=== PATIENT | male | born 1965 | race Caucasian/White ===

== ENCOUNTER → 2021-02-18 12:38 | Outpatient (CLI) | payer OTHER, SELFPAY ==
--- NOTE | 2021-02-18 12:47 | CT_ITS ---
PROCEDURE: CT LUNG SCREENING CLINICAL INDICATION: H/O NICOTINE DEPENDENCE COMPARISON: No exams were available for comparison TECHNIQUE: The exam was performed on a GE Light Speed [address] scanner using 2.90 mGy CTDI. A low dose helical CT CHEST was performed on a multi-detector scanner. All CT scans at the facility use one or more dose reduction, viz: automated exposure control, ma/kV adjustment per patient size (including targeted exams where dose is matched to indication, i.e. head), or iterative reconstruction technique. The LDCT was performed in a facility that meets the criteria for the screening program. Data regarding this exam was submitted to ACR which is an approved registry. The order for this exam indicates that it came as a result of a lung cancer screening counseling shard decision-making visit that included all the elements required of such a visit including smoking cessation. The radiologist interpreting this exam meets the CMS criteria for the LDCT lung cancer screening program. The exam is reported using the Lung-RADS classification scale and reported to the ACR registry. NOTE: This study was performed for the specific purposes of lung cancer screening and is not an alternative to diagnostic chest CT. RADIATION DOSE: CTDI vol(CT dose Index-volume) = 2.90mG DLP (Dose Length Product) = 114.90 mGcm FINDINGS: There is mild bibasilar scar versus atelectasis. Scattered mild emphysematous changes. No pulmonary consolidation or ground-glass opacities in the lungs. No discrete pulmonary nodules. No pleural effusion or pneumothorax. Heart is not enlarged. Thoracic aorta is normal. A few small non-specific middle mediastinal lymph nodes not pathologically enlarged. No enlarged axillary nodes. Hilar regions grossly appear normal. Some calcified middle mediastinal lymph nodes are present. Single small calcified granuloma in the right middle lobe. Images of the upper abdomen show no focal abnormality. No adrenal mass moderate diffuse degenerative changes of the thoracic spine with mild anterior wedging of a few midthoracic vertebral bodies which appears chronic. Airways are patent. OTHER FINDINGS: No other pertinent findings evident. IMPRESSION: Lung-RADS Category 2 Benign Appearance or Behavior Follow-up: Serial follow-up in 1 year. Scattered mild emphysematous changes with mild bibasilar scar versus atelectasis. Dictated by: Malachi Sullivan MD 03/07/2021 12:35 Malachi Sullivan MD in [place] 03/07/2021 12:35
== END ==
PROVIDERS: PCP Family Medicine; Visit Provider Family Medicine
DX: Z87.891 Personal history of nicotine dependence (principal); Z12.2 Encounter for screening for malignant neoplasm of respiratory organs
CPT/HCPCS: 71271

== ENCOUNTER → 2021-04-04 15:11 | Outpatient (CLI) | payer OTHER, SELFPAY | PROVIDERS: Visit Provider Internal Medicine Gastroenterology | DX: Z20.822 Contact with and (suspected) exposure to COVID-19 (principal) | CPT/HCPCS: U0003 ==

== ENCOUNTER 2021-04-07 10:57 | Day surgery (SDC) | payer OTHER, SELFPAY ==
[2021-04-01 11:01] VITALS: BMI 27.1
[2021-04-07 11:14] VITALS: BP 135/90; PULSE 83; RESP 18; TEMP 36.8; O2SAT 96
--- NOTE | 2021-04-07 11:44 | P.PN_ITS ---
[facility] Anesthesia Checklist - Patient Identification Patient Identification: Arm Band - Structural Data Admitted From: Home Planned Operative Procedure/s: Colonoscopy Consent for Planned Operative Procedure(s) Verified: Yes - NPO Status Verified Time NPO: 00:00 - Airway Assessment C-Spine Mobility Assessed: Yes TMJ Mobility Assessed: Yes - Neurological Assessment Level of Consciousness: Awake Hx Seizures: No Numbness or tingling in extremities: No - Anesthesia Plan Anesthesia Risk discussed: Yes Anesthesia Plan: Verified ASA Class: II Anesthesia Type: MAC [facility] History I have reviewed the patient's past medical history: Yes Medical History: Denies:: Cancer, Diabetes Mellitus Type 1, Diabetes Mellitus Type 2, Internal Pacemaker, MRSA, Seizures *Have you ever received a pneumonia vaccine?: No *Have you received a flu vaccine this season?: Yes Anesthesia experience/problems:: None Other Surgeries: No: Pacemaker Amputation: No Fractures: No - *Social History Last grade of school completed: High school graduate Smoking Status: Current every day smoker Tobacco Type: cigarettes # Packs/Day (cigarettes): 1 Alcohol Intake: current Alcohol Intake Frequency:: holidays/special occasions only Substance Use Type: denies use *Occupational Status:: employed Housing: house Household Members: spouse *Travel in the last 8 weeks: None Family Hx:: Hypertension, Stroke
--- NOTE | 2021-04-07 12:36 | P.PCN_ITS ---
[facility] Procedure Note Procedure Note:: Colonoscopy Procedure Report: Colonoscopy with cold snare polypectomy Endoscopist: Mian Santana II, MD Referring physician: Thai Peres MD Date of Procedure: April 07, 2021 Equipment: Olympus 190 variable stiffness pediatric colonoscope Sedation: MAC sedation Indication: Mr. Schultz is a 56-year-old gentleman who is here for initial screening colonoscopy. He reports no abdominal pain, weight loss, change in his bowel habits or family history of colon cancer. He rarely has a spot of blood on the tissue from internal hemorrhoids. Procedure: Prior to the procedure, a history and physical exam was performed, and patient's medications and allergies were reviewed. The risks, benefits and alternatives of the sedation and procedure were discussed with the patient. All questions were answered and informed consent was obtained. The patient was brought to the procedure room. Patient identification and proposed procedure were verified by the physician and the nurse. The patient was placed in a left lateral decubitus position and the scope was passed under direct vision. Throughout the procedure, the patient's blood pressure, pulse, and oxygen saturations were monitored continuously. The colonoscopy was accomplished without difficulty. The patient tolerated the procedure well. Findings: On digital rectal examination there was normal rectal tone. There were no external hemorrhoids. The prostate was 2+, mildly firm but symmetric without nodules. The colonoscope was introduced through the anal canal to the rectum and advanced to the cecum. The ileocecal valve and appendiceal orifice were identified. The scope was advanced a short distance into the ileum which appeared grossly normal. The scope was then withdrawn into the colon. The cecum, ascending and transverse colon and mucosa were grossly normal. There were a total of 4 polyps (transverse x2 (2 and 4 mm) and rectosigmoid x2 (3 and 6 mm)) which were all removed via cold snare polypectomy. There were scattered diverticuli throughout the descending and sigmoid colon (LEFT colon). The rectum itself was normal. Upon retroflexion within the rectum there were grade 2 internal hemorrhoids. The preparation was excellent throughout with [place] Preparation Score of 9. The cecal time was 12 minutes. Impression: 1. Diminutive colonic polyps x4 2. Left-sided diverticulosis 3. Grade 2 internal hemorrhoids Plan: I will follow up the polyp pathology and recommend repeat colonoscopy again in 5-10 years based upon the polyp histology. I would encourage fiber supplementation on a long-term daily maintenance basis.
[2021-04-07 12:38] VITALS: BP 88/62; PULSE 95; RESP 16; TEMP 36.4; O2SAT 93
[2021-04-07 12:48] VITALS: BP 83/58; PULSE 79; RESP 18; TEMP 36.4; O2SAT 95
[2021-04-07 12:58] VITALS: BP 103/70; PULSE 74; RESP 18; TEMP 36.4; O2SAT 95
[2021-04-07 13:08] VITALS: BP 109/75; PULSE 70; RESP 18; TEMP 36.4; O2SAT 97
[2021-04-07 13:35] VITALS: BP 118/81; PULSE 72; RESP 18; TEMP 36.4; O2SAT 97
== END 2021-04-07 13:35 | disposition home or self-care (01) ==
LOC: OUTP 10:58
PROVIDERS: PCP Family Medicine; Visit Provider Internal Medicine Gastroenterology
PROC: 0DJD8ZZ Inspection of Lower Intestinal Tract, Via Natural or Artificial Opening Endoscopic (ICD-10-PCS; CPT 45378; principal; 2021-04-07 12:00)
DX: Z12.11 Encounter for screening for malignant neoplasm of colon (principal); K63.5 Polyp of colon; K64.1 Second degree hemorrhoids; K57.30 Diverticulosis of large intestine without perforation or abscess without bleeding; Z72.0 Tobacco use; Z82.3 Family history of stroke; Z82.49 Family history of ischemic heart disease and other diseases of the circulatory system
CPT/HCPCS: 45385

== ENCOUNTER → 2022-01-27 13:22 | Outpatient (CLI) | payer OTHER, SELFPAY ==
--- NOTE | 2022-01-27 13:27 | XR_ITS ---
FINAL REPORT CLINICAL HISTORY: rt thumb pain FINDINGS: RIGHT HAND Three views were obtained. There is no acute fracture or dislocation. There are mild degenerative changes. No soft tissue abnormality is identified. IMPRESSION: No acute process. Reviewed, Interpreted and Dictated by Lex Boyd III, MD Transcribed by Tressa Mcwilliams Authenticated by Lex Boyd III, MD on 01/27/2022 04:26:[address] [facility]
== END ==
PROVIDERS: PCP Family Medicine; Visit Provider Orthopaedic Surgery
DX: M18.11 Unilateral primary osteoarthritis of first carpometacarpal joint, right hand (principal)
CPT/HCPCS: 73130

== ENCOUNTER → 2022-02-04 12:26 | Outpatient (CLI) | payer OTHER, SELFPAY ==
--- NOTE | 2022-02-04 16:49 | P.PCN_ITS ---
[facility] Procedure Note Procedure Note:: Date of Procedure: 02/04/2022 Pre-procedure diagnosis: 1. First CMC joint arthritis, right thumb 2. Degenerative arthritis, third MCP joint, right hand Post-procedure diagnosis: Same Procedure: 1. Fluoroscopy-guided intraarticular corticosteroid injection first CMC joint, right thumb 2.Fluoroscopy-guided intraarticular corticosteroid injection third MCP joint, right thumb Performed by: Eddie Merrill MD Fruit Loader Machine Operator/s: none Anesthesia: None Estimated Blood Loss: none Procedure Note: The patient presented to the radiology department and was prepared for the right first CMC joint and right third MCP joint injections under fluoroscopic guidance. The consent form was reviewed and signed by both myself and the patient; all questions were answered. The patient's right hand was placed on the fluoroscopy table. The right hand was prepped in the usual sterile fashion with multiple chlorhexidine sticks. Timeout was performed as per protocol. Next, the fluoro machine was brought in over the patient?s right hand and adequate visualization of the joints was confirmed. I donned a pair of sterile surgical g loves; the remainder of the procedure was performed in a sterile fashion. After localizing the first CMC joint under fluoroscopic guidance, a 25G needle was used to inject the joint. Using fluoro, it was confirmed that the needle is advanced into the first CMC joint. A combination of 20 mg of Kenalog and 1 mL of 1% lidocaine was then injected into the first carpometacarpal joint, under aseptic precautions. After completion of the procedure, the needle was withdrawn and a sterile Band-Aid was applied over the puncture site. The procedure was then repeated with for the right third MCP joint. After localizing the third MCP joint under fluoroscopic guidance, a 25G needle was used to inject the joint. Using fluoro, it was confirmed that the needle is advanced into the third MCP joint. A combination of 20 mg of Kenalog and 1 mL of 1% lidocaine was then injected into the third metacarpophalangeal joint, under aseptic precautions. After completion of the procedure, the needle was withdrawn and a sterile Band-Aid was applied over the puncture site. Patient tolerated both procedures well and there were no immediate complications. Patient reported very good pain relief within a few minutes after the injection. Specimens: none Condition/Disposition: good / home Complications: none
== END ==
PROVIDERS: PCP Family Medicine; Visit Provider Orthopaedic Surgery
DX: M18.11 Unilateral primary osteoarthritis of first carpometacarpal joint, right hand (principal); M19.041 Primary osteoarthritis, right hand
CPT/HCPCS: 20600; 77002

== ENCOUNTER → 2022-02-13 14:55 | Outpatient (CLI) | payer OTHER, SELFPAY ==
--- NOTE | 2022-02-13 14:59 | CT_ITS ---
FINAL REPORT CLINICAL HISTORY: PERSONAL HISTORY OF NICOTINE; SCREENING FOR LUNG CANCER, CURRENT SMOKER AND HAS SMOKED FOR 40 YEARS, 1 PACL PER DAY COMPARISON: February 18, 2021 FINDINGS: Low-Dose Chest CT CTDI vol (mGy): 2.90 DLP (mGy-cm): 96.38 Axial images were obtained from the lung apex to the mid abdomen by computed tomography. Low-dose protocol was utilized. CHEST: There is no axillary lymphadenopathy. There is no hilar or mediastinal lymphadenopathy. The heart is proper size. There is no pericardial or pleural effusion. Limited images of the upper abdomen demonstrates a partially imaged exophytic right renal lesion measuring 1.8 cm. This is not a simple cyst. Lung window images demonstrate a small stable nodule along the right minor fissure which is likely an intra fissural lymph node. There is evidence of prior granulomatous disease. The lungs are otherwise clear. IMPRESSION: Small stable nodule along the right minor fissure. Modifier S: Right renal lesion. Recommend ultrasound as initial evaluation. Lung RADS category 2. Recommend 12 month follow-up low-dose chest CT. Reviewed, Interpreted and Dictated by Judith Yen MD Transcribed by Betty Arana Authenticated by Judith Yen MD on 02/13/2022 05:01:33 PM [facility]
== END ==
PROVIDERS: PCP Family Medicine; Visit Provider Family Medicine
DX: Z87.891 Personal history of nicotine dependence (principal); Z12.2 Encounter for screening for malignant neoplasm of respiratory organs
CPT/HCPCS: 71271

== ENCOUNTER → 2022-02-23 13:56 | Outpatient (CLI) | payer OTHER, SELFPAY ==
--- NOTE | 2022-02-23 13:58 | US_ITS ---
FINAL REPORT TECHNIQUE: Ultrasound images of the kidneys were obtained. CLINICAL HISTORY: NEOPLASM OF UNCERTAIN BEHAVIOR OF RIGHT KIDNEY FINDINGS: US RETROPERITONEAL The right kidney measures 12.5 cm in length. There is no hydronephrosis. There is a 2 cm mass the upper pole which is not a simple cyst. Complex cyst versus neoplasm. The left kidney measures 11.5 cm in length. It is normal in echogenicity. There is no hydronephrosis. Limited images of the liver are unremarkable. IMPRESSION: 2 cm right renal cyst, complex cyst versus neoplasm. Could be further evaluated with renal mass protocol CT or renal MRI without and with contrast. Reviewed, Interpreted and Dictated by Lex Boyd III, MD Transcribed by Betty Arana Authenticated and [facility]
== END ==
PROVIDERS: PCP Family Medicine; Visit Provider Family Medicine
DX: D41.01 Neoplasm of uncertain behavior of right kidney (principal)
CPT/HCPCS: 76770

== ENCOUNTER → 2022-03-05 08:56 | Outpatient (CLI) | payer OTHER, SELFPAY ==
--- NOTE | 2022-03-05 09:01 | CT_ITS ---
FINAL REPORT CLINICAL HISTORY: NEOPLASM OF UNCERTAIN BEHAVIOR OF RT KIDNEY FINDINGS: CT ABDOMEN with and without: PROCEDURE: Axial images were obtained from the lung base to the iliac crest by computed tomography before and after the administration of contrast. This study was performed with techniques to keep radiation doses as low as reasonably achievable (ALARA). Individualized dose reduction techniques using automated exposure control or adjustment of mA and/or kV according to the patient's size were employed. ABDOMEN: The lung bases are clear. The heart is normal in size. There are multiple less than 1 cm hepatic cysts. The spleen is normal. No adrenal masses present. The pancreas is normal. There is a less than 3 mm nonobstructing left renal stone. There is a contrast enhancing 22 mm posterior upper pole right renal mass that demonstrates 29 Hounsfield units precontrast and 62 Hounsfield units postcontrast. This is most worrisome for renal neoplasm. The renal veins are unremarkable. There is a small simple cyst in the left kidney. The aorta is normal in caliber. There is no free fluid or adenopathy. There is a small umbilical hernia containing fat. IMPRESSION: Contrast enhancing right renal mass most worrisome for renal neoplasm. This may represent renal cell carcinoma. Reviewed, Interpreted and Dictated by Lex Boyd III, MD Transcribed by Cullen Stockton Authenticated and [facility]
[2022-03-05 09:54] LABS: Blood Urea Nitrogen 12 mg/dl (9-20); Estimated Glomerular Filt Rate 69 ml/min (>60); GFR (African American) 84 ML/MIN (>60)
== END ==
PROVIDERS: PCP Family Medicine; Visit Provider Family Medicine
DX: D41.01 Neoplasm of uncertain behavior of right kidney (principal)
CPT/HCPCS: 36415; 74170; 82565; 84520; Q9967

== ENCOUNTER → 2022-04-20 14:49 | Outpatient (CLI) | payer OTHER, SELFPAY ==
[2022-04-20 16:25] LABS: Chloride 102 mmol/L (98-107); Potassium 4.5 mmoL/L (3.5-5.1); Sodium 137 mmol/L (136-145)
[2022-04-20 16:28] LABS: Anion Gap 10.5 mEq/L (5-15); Blood Urea Nitrogen 15 mg/dl (9-20); Calcium 8.8 mg/dl (8.4-10.2); Carbon Dioxide 29 mmol/L (22.0-30.0); Estimated Glomerular Filt Rate 69 ml/min (>60); GFR (African American) 84 ML/MIN (>60); Glucose 117 mg/dl (74-100)
== END ==
PROVIDERS: Urology; PCP Family Medicine
DX: R31.0 Gross hematuria (principal)
CPT/HCPCS: 36415; 80048

== ENCOUNTER → 2022-05-19 14:02 | Outpatient (CLI) | payer OTHER, SELFPAY | PROVIDERS: PCP Family Medicine; Visit Provider Family Medicine | DX: R06.81 Apnea, not elsewhere classified (principal); R06.83 Snoring | CPT/HCPCS: 95806 ==

== ENCOUNTER 2022-06-10 10:16 | Emergency (ER) | payer OTHER, SELFPAY ==
[2022-06-10 11:10] VITALS: BP 116/78; PULSE 78; RESP 18; TEMP 37.1; O2SAT 98; BMI 26.9
[2022-06-10 11:23] VITALS: BP 116/78; PULSE 78; RESP 18; TEMP 37.1; O2SAT 98
--- NOTE | 2022-06-10 11:25 | EXP.UTC ---
Discharge Plan Disposition Patient Disposition: Home, Self-Care Condition: Good Prescriptions Prescriptions: No Action atorvastatin 20 MG tablet 20 mg PO HS Referrals Follow up/Referrals: Thai Peres MD [Primary Care Provider] - See instructions Activity Restrictions/Add. Instructions Additional Instructions/Restrictions: *Monitor Temp, Over the counter Motrin or Tylenol as directed/as needed Tylenol every 4 hours and Motrin every 6 hours (as long as your family doctor has told you that you can take it) for fever or pain. and straight to ER if unable to lower temp less than 101.0 after medication given *Warm salt water gargles may help to soothe the throat *Throat Lozenges? *Warm fluids like tea with honey may help to soothe the throat? *Sleep elevated *Humidifier/Vaporizer Follow up IMMEDIATELY for new or worsening symptoms or no Noticeable improvement over the next 48-72 hours. 911 for difficulty breathing or swallowing You were tested for today for COVID19 your test result should be back in the next 24-48 hours, you may check your results on the [facility] [employer] [facility] Make sure to take your Vitamins Vit. C Vit D and Zinc if you can take them Clinical Impressions Clinical Impression: Viral syndrome Stand Alone Forms Stand Alone Forms: Work/School Release Instructions Patient Instructions: Coronavirus Disease 2019, Preventing the Spread of Coronavirus Discharge Instructions Discharge ED Provider: Siobhan Haro [facility] [place] General Stated complaint: Covid + 06/10/22, retest, ADAME, Cough, fever, congest Mode of Arrival: Ambulatory Source of Information: Patient Limitations: No Limitations Time Seen by Provider: 06/10/22 11:25 Description of Symptoms (Recalled from Triage Doc. by RN): PATIENT C/O CONGESTION SINCE YESTERDAY. REPORTS A POSITIVE AT HOME COVID TEST HEENT Symptoms (Recalled from RN notes): Yes Resp Symptoms (Recalled from RN notes): No Skin Symptoms (Recalled from RN notes): No MS Symptoms (Recalled from RN notes): No Functional Status (Recalled from RN notes): WNL History of Present Illness Provider Complaint: Patient states that yesterday he started having nasal congestion and last night he felt achy so he took a home COVID test and it was positive State that he came in here today to get retested to see if it was positive here too Related Data Home Medications Medication Instructions Recorded Confirmed atorvastatin 20 mg tablet 20 mg PO HS Cholesterol 04/01/21 01/27/22 Allergies Allergy/AdvReac Type Severity Reaction Status Date / Time No Known Allergies Allergy Verified 01/27/22 15:21 Worker's Comp Is this a Worker's Comp case?: No PFSH PFSH Medical History (Updated 06/10/22 @ 11:28 by Siobhan Haro APRN) Cancer Hyperlipidemia Surgical History (Updated 06/10/22 @ 11:22 by Lotus Hernandez, RN) History of appendectomy Social History (Updated 06/10/22 @ 11:22 by Lotus Hernandez RN) Smoking Status: Current every day smoker tobacco type: cigarettes packs per day: 1 second hand exposure: Yes alcohol intake: current substance use type: denies use current occupational status: employed Travel in the last 8 weeks: None household members: spouse housing: house current occupation: [employer] current occupational exposures/hazards: No caffeine: Yes ROS Obtained: Yes All systems reviewed & no additional complaints except as documented and Yes Systems reviewed as appropriate & no additional complaints except as documented Constitutional Constitutional: Reports system reviewed and no additional complaints, except as documented, Reports as per HPI and Reports body ache Eyes Eyes: Reports system reviewed and no additional complaints, except as documented ENT Ears, Nose, Mouth, and Throat: Reports system reviewed and no additional complaints, except as documented, Reports as per HPI and Reports nasal congestion Cardiovasc
== END 2022-06-10 11:36 | disposition home or self-care (01) ==
PROVIDERS: Emergency Provider Nurse Practitioner; PCP Family Medicine
DX: U07.1 COVID-19 (principal)
CPT/HCPCS: 99212; C9803; G0463; U0003; U0005

== ENCOUNTER → 2022-09-01 09:20 | Outpatient (CLI) | payer OTHER, SELFPAY ==
--- NOTE | 2022-09-01 09:25 | US_ITS ---
FINAL REPORT TECHNIQUE: Ultrasound images of the testicles were obtained bilaterally. Color Doppler images were obtained. CLINICAL HISTORY: SPERMATOCELE OF EPIDIDYMIS FINDINGS: The right testicle measures 4.1 x 3.0 x 2.0 cm. The left testicle measures 3.9 x 3.0 x 2.1 cm. Arterial flow is identified bilaterally. No intratesticular masses are identified. There are small hydroceles bilaterally. The right epididymal head is slightly enlarged compared to the left measuring up to 1.4 cm of uncertain significance, right epididymitis not excluded. There is also a probable small cyst in the right epididymal head measuring 5 mm. IMPRESSION: Right epididymal head slightly enlarged in comparison to the left of uncertain significance, epididymitis not excluded. Probable small cyst in the right epididymal head. Reviewed, Interpreted and Dictated by Lex Boyd III, MD Transcribed by Betty Arana Authenticated and [facility]
== END ==
PROVIDERS: PCP Family Medicine; Visit Provider Urology
DX: N43.40 Spermatocele of epididymis, unspecified (principal)
CPT/HCPCS: 76870

== ENCOUNTER 2022-09-03 07:22 | Emergency (ER) | payer OTHER, SELFPAY ==
[2022-09-03] VITALS (7 sets, daily range): BP systolic 116–155; BP diastolic 73–100; PULSE 62–74; RESP 16–20; TEMP 36.8; O2SAT 96–99; BMI 27.8
--- NOTE | 2022-09-03 07:22 | ECG_ITS ---
APPROVED REPORT Exam: Resting ECG HR:68 bpm ECG Measurements Heart Rate [address] 165 P 67 QRSd 92 QRS -20 QT 378 T 50 QTc 396 Conclusion SINUS RHYTHM NORMAL ECG UNCONFIRMED REPORT Electronically signed by : Orion Alonso MD 09/04/2022 16:51:38
--- NOTE | 2022-09-03 07:38 | XR_ITS ---
FINAL REPORT CLINICAL HISTORY: pain FINDINGS: Two views of the chest were obtained. The heart size and pulmonary vascularity are within normal limits. The mediastinum is normal. No acute pulmonary abnormality is identified. There is no pneumothorax. The bony thorax is intact. IMPRESSION: No active cardiopulmonary disease. Reviewed, Interpreted and Dictated by Lex Boyd III, MD Transcribed by Betty Arana Authenticated and [facility]
[2022-09-03 07:45] LABS: Chloride 104 mmol/L (98-107); Sodium 139 mmol/L (136-145)
[2022-09-03 07:47] LABS: Amylase 64 U/L (30-110); Lipase 54 U/L (23-300)
--- NOTE | 2022-09-03 07:47 | PC.NURSE ---
Pt ambulated to xray.
[2022-09-03 07:48] LABS: Alanine Aminotransferase 34 U/L (12-78); Albumin Level 4.2 g/dl (3.5-5.0); Albumin/Globulin Ratio 1.5 (1.1-1.8); Alkaline Phosphatase 89 U/L (38-126); Aspartate Amino Transferase 36 U/L (17-59); Bilirubin,Total 1.3 mg/dl (0.2-1.3); Blood Urea Nitrogen 16 mg/dl (9-20); Carbon Dioxide 27 mmol/L (22.0-30.0); Creatinine Clearance Estimated 82 mL/min (50-200); Estimated Glomerular Filt Rate 57 ml/min (>60); GFR (African American) 69 ML/MIN (>60); Globulin 2.8 g/dL (1.3-3.2)
[2022-09-03 07:49] LABS: Calcium 9.2 mg/dl (8.4-10.2); Glucose 109 mg/dl (74-100)
[2022-09-03 07:51] LABS: Basophils # 0.1 K/mm3 (0-0.2); Basophils % 1.1 % (0.1-2.0); Eosinophils # 0.3 K/mm3 (0.0-0.4); Eosinophils % 3.8 % (0.1-12.0); Hematocrit 42.1 % (42.0-52.0); Hemoglobin 13.8 g/dL (14.1-18.0); Lymphocytes % 25.6 % (10-50); Mean Corpuscular HGB Conc 32.8 g/dL (31.8-35.4); Mean Corpuscular Hemoglobin 30.5 pg (27.0-31.2); Mean Corpuscular Volume 92.9 fl (80-94); Mean Platelet Volume 8.8 fl (7.4-10.4); Monocytes # 0.5 K/mm3 (0.1-1.0); Monocytes % 6.8 % (1.7-9.3); Neutrophils # 4.8 K/mm3 (1.8-7.8); Neutrophils % 62.6 % (37.0-80.0); Platelet Count 352 K/mm3 (142-424); Red Blood Count 4.53 M/mm3 (4.60-6.20); Red Cell Distribution Width 13.1 % (11.5-17.5); White Blood Count 7.7 K/mm3 (4.8-10.8)
[2022-09-03 08:09] LABS: Troponin I < 0.01 ng/ml (0.00-0.034)
--- NOTE | 2022-09-03 08:10 | HMH.EDGENADL ---
Discharge Plan Disposition Patient Disposition: Home, Self-Care Condition: Good Prescriptions Prescriptions: No Action famotidine [Pepcid AC] 20 mg tablet 20 mg PO DAILY atorvastatin 20 MG tablet 20 mg PO HS Referrals Follow up/Referrals: Thai Peres MD [Primary Care Provider] - See instructions Tirso Hall MD [Staff Physician] - See instructions Activity Restrictions/Add. Instructions Additional Instructions/Restrictions: Follow-up with cardiology, Dr. Hall, in cardiology clinic on 09/07/2022 at 3 PM. Additional instructions for CHEST PAIN: Return immediately if worsening chest pain, vomiting, shortness of breath, fever, coughing of blood. Clinical Impressions Clinical Impression: Chest pain Instructions Patient Instructions: DI for Chest Pain Discharge ED Provider: Judd Alvarez General Adult HPI General Chief complaint: PAIN Stated complaint: chest pain Time Seen by Provider: 09/03/22 08:10 Mode of Arrival: Ambulatory Source of Information: Patient Limitations: No Limitations Description of Symptoms (Recalled from ER Triage Doc. by RN): pt to ed c/o epigastric pain. pt reports the pain has subsided on arrival to ed. History of Present Illness HPI narrative: Patient states that he had 2 episodes of pain this morning that he locates right at his xiphoid area. Each lasted about 5 minutes and was associated with nausea and profuse diaphoresis. No shortness of breath. No symptoms currently. He also had an episode of the same discomfort that awakened him from sleep about 2 to 3 weeks ago and resolved after taking Gas-X. He has no known heart conditions. He does have hyperlipidemia. He does not have hypertension or diabetes. He is a non-smoker. Denies family history of heart disease. Related Data Home Medications Medication Instructions Recorded Confirmed atorvastatin 20 mg tablet 20 mg PO HS Cholesterol 04/01/21 09/03/22 famotidine 20 mg tablet (Pepcid AC) 20 mg PO DAILY GERD 06/24/22 09/03/22 Allergies Allergy/AdvReac Type Severity Reaction Status Date / Time No Known Allergies Allergy Verified 08/27/22 14:45 [facility] Disclaimer: The information contained in this section may have been updated after the patient was seen, as this information can be updated by other users. Medical History (Updated 09/03/22 @ 11:49 by Saniya Meneses APRN) Cancer Hyperlipidemia ANGEL (obstructive sleep apnea) Surgical History History of appendectomy History of partial nephrectomy Family History Other Stroke Social History Smoking Status: Never smoker second hand exposure: Yes alcohol intake: current substance use type: denies use current occupational status: employed Travel in the last 8 weeks: None household members: spouse housing: house current occupation: [employer] current occupational exposures/hazards: No caffeine: Yes ROS Obtained: Yes Systems reviewed as appropriate & no additional complaints except as documented Constitutional Constitutional: Denies fever(s), Denies headache(s) and Denies weakness ENT Ears, Nose, Mouth, and Throat: Denies headache(s), Denies nasal discharge and Denies sore throat Cardiovascular Cardiovascular: Reports chest pain and Reports diaphoresis Respiratory Respiratory: Denies shortness of breath and Denies cough Gastrointestinal Gastrointestingal: Reports nausea; Denies abdominal pain, constipation, diarrhea or vomiting Genitourinary Male Genitourinary: Denies difficulty urinating and Denies flank pain Musculoskeletal Musculoskeletal: Denies numbness Neurologic Neurologic: Denies headache(s), Denies numbness and Denies weakness Physical Exam General General appearance: alert and in no apparent distress Head Head exam: atraumatic and
--- NOTE | 2022-09-03 08:29 | US_ITS ---
FINAL REPORT CLINICAL HISTORY: epigastric pain FINDINGS: Sonographic images of the right upper quadrant were obtained. The pancreas is partially obscured.The liver has an unremarkable appearance.The gallbladder appears normal without evidence of gallstones.There is no evidence of biliary ductal dilatation.The common duct measures 3 mm. Limited images of the right kidney are unremarkable. IMPRESSION: Unremarkable right upper quadrant ultrasound. Authenticated and [facility]
--- NOTE | 2022-09-03 08:52 | PC.NURSE ---
Patient wheeled up for ultrasound
--- NOTE | 2022-09-03 09:27 | PC.NURSE ---
cardiology has been called for a consult. Will be down to speak with patient.
[2022-09-03 11:02] LABS: Troponin I < 0.01 ng/ml (0.00-0.034)
--- NOTE | 2022-09-03 11:42 | EXP.CARD.CON ---
History of Present Illness History of Present Illness Consult date: 09/03/22 Requesting physician: Judd Alvarez Consult reason: chest pain Chief complaint: Chest pain Additional Medical History:: Significant past medical history: Current smoker for 20+ years, recently trying to quit down to 2 to 3 cigarettes daily Hyperlipidemia History of present illness: 57 year old white male with above past medical hx presented to ER today with complaint of epigastric pain radiating into chest and abdomen, associated with soa and mild diaphoresis, onset at 0530 today. patient reports had initial episodes lasting a few minutes that resolved. Didnt think much of it but it happened for a second time around 730 prompting him to call and go to ER. states had one similar episodes a few weeks ago as well. EKG on presentation to ER shows NSR rate of 68. Serial trops negative. Patient reports pain resolved upon presentation to ER and hasnt had it again. [facility] Disclaimer: The information contained in this section may have been updated after the patient was seen, as this information can be updated by other users. Medical History (Updated 09/03/22 @ 11:49 by Saniya Meneses APRN) Cancer Hyperlipidemia ANGEL (obstructive sleep apnea) Surgical History History of appendectomy History of partial nephrectomy Family History Other Stroke Social History Smoking Status: Never smoker second hand exposure: Yes alcohol intake: current substance use type: denies use current occupational status: employed Travel in the last 8 weeks: None household members: spouse housing: house current occupation: [employer] current occupational exposures/hazards: No caffeine: Yes Review of Systems Constitutional Constitutional: Denies headache(s) and Denies weakness ENT Ears, Nose, Mouth, and Throat: Denies headache(s) *Cardiovascular Cardiovascular: Reports chest pain *Musculoskeletal Musculoskeletal: Denies numbness *Neurologic Neurologic: Denies headache(s), Denies numbness and Denies weakness Exam Data for Last 24 hours Vital signs and Labs for Last 24 Hours: Temp Pulse Resp BP Pulse Ox 98.2 F 66 16 116/85 97 09/03/22 08:26 09/03/22 11:00 09/03/22 11:00 09/03/22 11:00 09/03/22 11:00 Laboratory Results - last 24 hr 09/03/22 07:25: WBC 7.7, RBC 4.53 L, Hgb 13.8 L, Hct 42.1, MCV 92.9, MCH 30.5, MCHC 32.8, RDW 13.1, Plt Count 352, MPV 8.8, Neut % (Auto) 62.6, Lymph % (Auto) 25.6, Summers % (Auto) 6.8, Eos % (Auto) 3.8, Baso % (Auto) 1.1, Neut # (Auto) 4.8, Lymph # (Auto) 2.0, Summers # (Auto) 0.5, Eos # (Auto) 0.3, Baso # (Auto) 0.1 09/03/22 07:25: Sodium 139, Potassium 4.0, Chloride 104, Carbon Dioxide 27, Anion Gap 12.0, BUN 16, Creatinine 1.30 H, Estimated Creat Clear 82, Estimated GFR 57 L, Est GFR ( Amer) 69, Glucose 109 H, Calcium 9.2, Total Bilirubin 1.3, AST 36, ALT 34, Alkaline Phosphatase 89, Troponin I < 0.01, Total Protein 7.0, Albumin 4.2, Globulin 2.8, Albumin/Globulin Ratio 1.5 09/03/22 07:25: Amylase 64, Lipase 54 09/03/22 10:23: Troponin I < 0.01 I & O for Last 24 hours: Intake & Output 08/31/22 09/01/22 09/02/22 09/03/22 23:59 23:59 23:59 23:59 Weight 200 lb Constitutional Constitutional: no acute distress *Routine Respiratory Exam Respiratory: Present CTA bilaterally and symmetric chest movement *Routine Cardiovascular Exam Cardiovascular: Present RRR, Normal S1 and Normal S2 *Routine Abdominal Exam Abdominal: Present soft and normoactive bowel sounds; Absent tenderness *Routine Extremities Exam Extremities: Present full ROM and normal capillary refill; Absent edema *Routine Skin Exam Skin: Present intact, dry and warm Detailed Neck Exam: Thyroids Thyroid: Absent bruit Meds Home Medications and Allergies Home Medications
== END 2022-09-03 11:40 | disposition home or self-care (01) ==
PROVIDERS: Emergency Medicine; Emergency Provider Emergency Medicine; PCP Family Medicine
DX: R07.89 Other chest pain; E78.5 Hyperlipidemia, unspecified; Z79.899 Other long term (current) drug therapy; K21.9 Gastro-esophageal reflux disease without esophagitis; G47.33 Obstructive sleep apnea (adult) (pediatric); Z85.9 Personal history of malignant neoplasm, unspecified
CPT/HCPCS: 71046; 76705; 80053; 82150; 83690; 84484; 85025; 93005; 99285

== ENCOUNTER → 2022-09-17 06:16 | Outpatient (CLI) | payer OTHER, SELFPAY ==
--- NOTE | 2022-09-17 06:17 | CA_ITS ---
APPROVED REPORT EXAM: Comprehensive 2D, Doppler, and color-flow Echocardiogram Field Pipe Lines Supervisor: Fatemeh Bain, RCS, RVS Ht: 5 ft 11 in Wt: 202lbs BSA: 2.12 BP: 131/78 mmHg Indications: SOA,Epigastric pain, kidney cancer,diphoretic episode, ANGEL, Abn EKG, HLD 2D Dimensions IVSd 0.97 cm LVEF (Visual) 65.20 % PWd 1.07 cm LVDd 4.60 cm LVDs 2.96 cm Aortic Root 3.69 cm Left Atrium 3.22 cm LVOT 2.12 cm (M/F) 1.5-2.5 M-Mode Dimensions RVDd 2.06 cm (0.9-2.6) LA Diam 3.79 cm (1.9-4.0) LVDd 5.53 cm (3.5-5.7) Ao Diam 3.63 cm (2.0-3.7) LVDs 3.15 cm (3.5-5.7) IVSd 0.93 cm (0.6-1.1) PWd 0.89 cm (0.6-1.1) EF (Teich) 73.60% EPSs 0.32 cm FS 43.00% EDV (Teich) 149.30 mL TAPSE 2.51 (<1.7) ESV (Teich) 39.40 mL LV Diastology E Decel Time 207.00 (160-240 msec) E/A Ratio 0.84 MED E' 6.20 (< 7 cm/sec) MED A' 11.50 cm/s E'/MED E' Ratio 10.94 (>14) LAT E' 9.40 (<10 cm/sec) LAT A' 13.70 cm/s E/LAT E' Ratio 7.21 (>14) Aortic Valve LVOT Max 96.00 (70-110 cm/s) LVOT VTI 21.22 cm AoV Peak Angel. 147.00 (50-130 cm/s) AO Peak GR. 8.70 mmHg AO Mean GR. 5.50 (<5 mmHg) AO VTI 35.44 (18-25 cm) SHAUN (VTI) 2.11 (2.5-4.5 cm2) Mitral Valve MV A Velocity 81.00 (40-130 cm/s) E/A Ratio 0.84 MV Decel. Time 207.00 (160-240 ms) Pulmonary Valve PV Peak Velocity 88.00 (50-150 cm/s) TN End VMAX 180.00 cm/s Tricuspid Valve TR P. Velocity 228.00 cm/s Left Ventricle Left atrium is mildly enlarged left ventricle is normal size mild concentric left ventricular hypertrophy, estimated ejection fraction 55% with no regional wall motion abnormality, grade 1 diastolic dysfunction seen without tissue Doppler evidence of raise left atrial pressure. Right Ventricle Right atrium and right ventricle are normal size and contractility. Aortic Valve Aortic valve is minimally thickened and fibrosed there is no aortic stenosis or aortic insufficiency. Mitral Valve Mitral valve is grossly normal, there is trace mitral regurgitation. Tricuspid Valve Tricuspid valve grossly normal, there is trace tricuspid regurgitation, tricuspid regurgitation jet velocity is inadequate for calculation of the right ventricular systolic pressure. Pulmonic Valve Pulmonic valve is poorly visualized. Great Vessels Aortic root is normal size. Inferior vena cava is normal size with normal inspiratory collapse. Pericardium No significant pericardial effusion noted. Conclusion 1. Mildly enlarged left atrium, normal left ventricular size mild concentric left ventricular hypertrophy, estimated ejection fraction 55% with no regional wall motion abnormality, grade 1 diastolic dysfunction seen without tissue Doppler evidence of raise left atrial pressure. 2. Trace mitral and tricuspid regurgitation 3. No significant pericardial effusion noted. 4. Inferior vena cava is normal size with normal inspiratory collapse. Electronically signed by : Bharath Gabriel MD 09/18/2022 16:07:07
--- NOTE | 2022-09-17 06:17 | NM_ITS ---
APPROVED REPORT Exam: Nuclear Stress Test Indication: HYPERLIPIDEMIA, TOB USE, C.P., SOB Patient Location: Outpatient Stress Tech: Devika Espitia LA Tech:SYLVIE Mcmanus RT (R)(N)(M) Ht: 5 ft 11 in Wt: 200 lbs HR: 63 bpm BP: 129/64 mmHg BSA: 2.11 m2 TID: 1.11 BMI: 27.8 History: HYPERLIPIDEMIA, TOB USE, C.P., SOB Procedure: Patient exercised on Orlando protocol 10:30 minutes and sec, resting heart rate 63 bpm, resting blood pressure 129/64 mmHg, with exercise maximum heart rate achived was 135 bpm which is 82 % of the maximum predicted heart rate and blood pressure was 160/68 mmHg. Test was stopped due to FATIGUE. Patient denied any complaint of chest pain. Patient has Good exercise capacity, achieved 12.8 METs of workload on treadmill, the blood pressure response to exercise was Adequate. Electrocardiogram Resting electrocardiogram shows sinus rhythm, with exercise there is less than 1.[address] segment depression noted from the baseline EKG. The EKG portion of the exercise Myoview is nondiagnostic as patient did not achieve the target heart rate. Cardiac Stress and Resting SPECT Images: Cardiac Stress and Resting SPECT images were obtained using technetium 99m Myoview 31.1 mCi stress and 10.48 mCi at rest. Gated SPECT for analysis of segmental wall motion and calculation of the ejection fraction also done. Prone images were also obtained. Cardiac stress and resting SPECT images show uniform myocardial activity without segmental perfusion abnormality, computer derived ejection fraction is 46% with no regional wall motion abnormality, right ventricle is normal size and contractility. Conclusion: 1. The EKG portion of the exercise Myoview is nondiagnostic as patient did not achieve the target heart rate, patient has good exercise capacity achieved 12.8 METs of workload on treadmill, the blood pressure response to exercise was adequate, there was no exercise-induced chest discomfort. 2. No scintigraphic evidence of reversible ischemia seen, computer derived ejection fraction is 46% with no regional wall motion abnormality, right ventricle is normal size and contractility. 3. Normal exercise Myoview study at 82% of the maximum predicted heart rate. Electronically signed by : Bharath Gabriel MD 09/18/2022 10:02:27
--- NOTE | 2022-09-17 06:17 | CA_ITS ---
APPROVED REPORT Exam: Exercise Treadmill Technologist: Devika Molina, Ht: 5 ft 11 in Wt: 202 lbs BSA: 2.12 m2 HR: 63 bpm BP: 129/64 mmHg Indications: SOA, CP Medical History Medications: Atorvastatin,,,,, PEPcid,,,,, Stress Test Details Test: Orlando HR Resting HR: 72 bpm Max Heart Rate (APMHR): 165.381325 bpm Max HR Achieved: 133 bpm Target HR (85% APMHR): 140.494494 bpm % of APMHR: 80.61 Recovery HR: 85 bpm BP Resting BP: 131/75 mmHg Max BP: 160/68 mmHg Recovery BP: 138.0/76.0 mmHg ECG Resting ECG: NSR, leftward axis, slow R wave progression Clinical Exercise duration: 10:31 min Highest Stage Achieved: 4 Exercise capacity: 12.8 METs Stress ECG Conclusion Exercised 10:31 on Orlando Protocol Max HR: 135 % of PM: 82% Max BP: 160/68 METs: 12.8 Test stopped due to: Leg fatigue, SOA Symptoms: No CP. Arrhythmias/Ectopy: None ST-T Changes: Allowing for motion artifact, the ST response to exercise is within normal. Conclusion: Normal GXT to HR achieved (82% of PM). Myoview images reported separately. Test Summary REST . . . . . . . Sitting REST . . . . . . . Standing REST 04:03 0.0 0.0 72 . 131/ 75 . . Stage 1 01:00 10.0 1.7 86 . . . . Stage 1 02:00 10.0 1.7 99 . . . . Stage 1 03:00 10.0 1.7 90 . 140/ 72 . . Stage 2 01:00 12.0 2.5 94 . . . . Stage 2 02:00 12.0 2.5 99 . . . . Stage 2 03:00 12.0 2.5 98 . 156/ 74 . . Stage 3 01:00 14.0 3.4 109 . . . . Stage 3 02:00 14.0 3.4 109 . . . . Stage 3 03:00 14.0 3.4 112 . 160/ 68 . . Stage 4 01:00 16.0 4.2 . . . . . Stage 4 01:31 16.0 4.2 66 . . . Stop exercise at 10:31 RECOVERY 01:00 0.0 0.0 116 . . . . RECOVERY 02:00 0.0 0.0 94 . 137/ 74 . . RECOVERY 03:00 0.0 0.0 89 . 137/ 74 . . RECOVERY 04:00 0.0 0.0 90 . 157/ 75 . . RECOVERY 05:00 0.0 0.0 84 . 138/ 76 . . RECOVERY 05:13 0.0 0.0 84 . 138/ 76 . . Electronically signed by : Bharath Gabriel MD 09/18/2022 09:38:02
== END ==
PROVIDERS: PCP Family Medicine; Visit Provider Physician Assistant
DX: R07.9 Chest pain, unspecified (principal); R07.89 Other chest pain; R94.31 Abnormal electrocardiogram [ECG] [EKG]; E78.5 Hyperlipidemia, unspecified
CPT/HCPCS: 78452; 93017; 93306; 94762; A9502

== ENCOUNTER → 2023-02-04 10:04 | Outpatient (CLI) | payer OTHER, SELFPAY ==
--- NOTE | 2023-02-04 10:12 | NM_ITS ---
FINAL REPORT CLINICAL HISTORY: EPIGASTRIC PAIN,ELEVATED LIVER LFT no pain with cck COMPARISON: None FINDINGS: Sequential anterior projection images of the abdomen were obtained after the intravenous injection of 8.42 mCi technetium 99m Choletec. There is normal uptake of radiotracer by the liver. The bile ducts are visualized by 5 minutes. Gallbladder activity is seen by 10 minutes. Bowel activity is not visualized by 60 minutes. After 1 hour, 1.8 ?g of CCK was injected intravenously for calculation of gallbladder ejection fraction. There is prompt visualization of bowel. The gallbladder ejection fraction is 98%, which is within normal limits. IMPRESSION: No evidence of cystic duct or bile duct obstruction. Normal gallbladder ejection fraction of 98 %. Reviewed, Interpreted and Dictated by Lex Boyd III, MD Transcribed by Allison Welch Authenticated and [facility]
== END ==
PROVIDERS: PCP Family Medicine; Visit Provider Family Medicine
DX: R10.13 Epigastric pain (principal); R79.89 Other specified abnormal findings of blood chemistry
CPT/HCPCS: 78227; A9537; J2805

== ENCOUNTER 2025-04-14 16:47 | Emergency (ER) | payer BC, SELFPAY ==
--- OUTSIDE RECORDS SUMMARY | 2024-02-07 11:30 | XMS_ITS ---
Author Organization [facility] Address [address] [place] [id number] Care Team Providers Care Director Personal Name Role Phone Thai Peres Primary Care Provider Venkat Car Unavailable [phone] Allergies No Known Allergies Results Component Value Reference Range Notes Glycohemoglobin A1c (in hous e) Reviewed date:02/09/2024 04:29:24 PM Interpretation:5.7% Performing Lab: Notes/Report: 5.7% glycohemoglobin 5.7% 5 - 6.5 % P-Comprehensive Metabolic Pa jin (CMP) Reviewed date:02/09/2024 04:29:24 PM Interpretation:gluc 110, bun 21, Cr 1.66, gfr 48, bili 1.5 Performing Lab: Notes/Report: Test performed by [facility] [address] [place] [address] , [address], [place] [address] Gavino Abreu MD, Log Haul Operator CLIA: [id number] Sodium 137 135-145 mEq/L Potassium 3.9 3.5-5.3 mEq/L Chloride 103 97-108 mEq/L CO2 24 22-32 mEq/L Glucose 110 65-99 mg/dL BUN 21 6-20 mg/dL Creatinine 1.66 0.70-1.30 mg/dL Calcium 9.3 8.6-10.4 mg/dL eGFR by Creatinine 48 >59 mL/min/1.73m2 Protein 6.8 6.0-8.3 g/dL Albumin 4.5 3.5-5.3 g/dL Alkaline Phosphatase 102 40-129 IU/L ALT (SGPT) 19 <5-55 IU/L AST (SGOT) 25 <5-46 IU/L Bilirubin, Total 1.5 <0.2-1.2 mg/dL A/G Ratio 2.0 1.1-2.5 mg/dL P-TSH reflex to FT4 Reviewed date:02/09/2024 04:29:24 PM Interpretation:Normal Performing Lab: Notes/Report: Test performed by [facility] [address] [place] [address] , [address], [place] [address] Gavino Abreu MD, Log Haul Operator CLIA: [id number] TSH reflex to FT4 0.70 0.43-5.25 mU/L Reason For Referral Diagnosis 1 Hand arthritis (M19. 049) Referral Organization [facility] Referring Provider First Name Thai Referring Provider Last Name Ja Referring Provider Speciality Family [facility] ctice Referred Provider MARY JACKSON Referred Provider Specialty Hand Surgery General Notes Soledad Cali 02/08/20 24 1:00:46 PM > faxed referral Referral Priority Routine REASON FOR VISIT 6 Month Check Up Medications Medication SIG (Take, Route, Frequency, Duration) Notes Start Date End Date Status Atorvastatin Calcium 20 MG 1 tab(s) oral ly once a day Active Famotidine 20 MG 1 tab(s) orally once a day (at bedtime) Active Problems Problem Type SNOMED Code ICD Code Onset Dates Problem Status W/U Status Risk Notes Problem Localized, primary osteoarthritis of the hand (067295755) Hand arthritis (M19.049) Active confirmed Vital Signs Blood pressure systolic 112 mm Hg 02/07/20 24 Blood pressure diastolic 62 mm Hg 024 Heart Rate 74 /min 02/07/2024 Height 72 in 02/07/2024 Weight 204 lbs 02/07/2024 BMI 27.66 kg/m2 02/07/2024 Encounters Encounter Location Date Provider Diagnosis [facility] [address] [place], [place] [id number] 02/07/2024 [place] Pure hypercholestero lemia E78.00 ; IFG (impaired fasting glucose) R73.01 and Hand arthritis M19.049 Assessments Encounter Date Diagnosis (ICD Code) Assessment Notes Treatment Notes Treatment Clinical Notes Section Notes 02/07/2024 Pure hypercholesterolemia (ICD-10 - E78.00) 02/07/2024 IFG (impaired fastin g glucose) (ICD-10 - R73.01) 02/07/2024 Hand arthritis (ICD- 10 - M19.049) 02/07/2024 Other Labs from recent health fair reviewed in office today (Lipid, glucose, PSA) See report Plan Of Treatment Medication Medication Name Sig Start Date Stop Date Notes Atorvastatin Calcium 20 MG 1 tab(s) orally once a day Famotidine 20 MG 1 tab(s) orally once a day (at bedtime) Treatment Notes Assessment Notes Other Labs from recent [facility] reviewed in office today (Lipid, glucose, PSA) See report Referrals Referral Date Details 02/07/2024 02/07/2024, MARY JACKSON Next Appt Details Follow Up: 6 Months, Reason: Provider Name:Thai [place] ry, 08/08/2025 04:00:00 PM, [address], [address], [place], [place], [id number], Progress Notes * DODIE BRYCEDOB: 7 (60 yo M)Acc No.[id number]:02/07/2024 Progress Notes Patient: BRYCE BASS Provider: Gabriela Peres M.D. :1965 A ge:59 Y S ex:Male Date:02/07/2024 Address:[address] [place] [address], [place] [id number] Subjective: * Chief Complaints: * 1 . 6 Month Check Up. * HPI: C ardiology: 59 year old male presents with c/o Hyperlipidemia P t here for 6 mo f/u, states he had cholesterol checked 12/18/2023 and does have copy with him today. * ROS: D ERMATOLOGY: no R bibiana. n o H barb. G ASTROENTEROLOGY: no N ausea. n o V omiting. U ROLOGY: no D ifficulty urinating. n o B lood in urine. * Medical History: E sophageal Reflux, Hypercholestrolemia, Colon Polyps, Renal cell carcinoma, right kidney (stage 1), s/p excisional biopsy March 2022, Sleep Apnea, Arthritis in hands, s/p ortho evaluation, Impaired fasting glucose. * Surgical History: A ppendectomy , Colonoscopy , RT partial nephrectomy due to renal cell carcinoma 03/2022. * Hospitalization/Major Diagno stic Procedure: D enies Past Hospitalization. * Family History: F ather: alive. M other: alive, cancer. 1 brother(s) , 2 sister(s) . 2 son(s) - healthy. . * Social History: C affeine: yes, frequency:. Marital Status: . Past smoking status: yes, PPD: 1 , years: since age of 19 ,determination:. Alcohol: Type: , Frequency: ,Years: , Determination:. * Medications: T aking Atorvastatin Calcium 20 MG Tablet 1 tab(s) orally once a day , Taking Famotidine 20 MG Tablet 1 tab(s) orally once a day (at bedtime) , Medication List reviewed and reconciled with the patient * Allergies: N .K.D.A. Objective: * Vitals: W t:204, Temp:97.9, BP:112/62, HR:74, Nurse:thom, Ht: 72, BMI:27.66. * Examination: C ardiology: General Appearance: p leasant, NAD. H EENT: u nremarkable. H eart sounds: R RR, normal S1, S2. L ungs: c lear, no rales or wheezes.?Extremities: n o leg edema. Assessment: * Assessment: 1. P ure hypercholesterolemia - E78.00 (Primary) 2 . I FG (impaired fasting glucose) - R73.01 3 . H and arthritis - M19.049 Plan: * Treatment: Value Reference Range A /G Ratio 2.0 1.1-2.5 - mg/dL * A lbumin 4.5 3.5-5.3 - g/dL * A lkaline Phosphatase 102 40-129 - IU/L * A LT (SGPT) 19 <5-55 - IU/L * A ST (SGOT) 25 <5-46 - IU/L * B ilirubin, Total 1.5 H <0.2-1.2 - mg/dL * B UN 21 H 6-20 - mg/dL * C alcium 9.3 8.6-10.4 - mg/dL * C hloride 103 97-108 - mEq/L * C O2 24 22-32 - mEq/L * C reatinine 1.66 H 0.70-1.30 - mg/dL * G lucose 110 H 65-99 - mg/dL * P otassium 3.9 3.5-5.3 - mEq/L * S odium 137 135-145 - mEq/L * P rotein 6.8 6.0-8.3 - g/dL * e GFR by Creatinine 48 L >59 - mL/min/1.73m2 * Chyna Plaza 02/09/2024 4:29: 18 PM >See phone encounter ?LAB: P-TSH reflex to FT4 (Collection Date & Time - 02/07/2024 02:55 PM)? Normal* Value Reference Range T SH reflex to FT4 0.70 0.43-5.25 - mU/L * Chyna Plaza 02/09/2024 4:29: 18 PM >See phone encounter 2.?IFG (impaired fasting glucose)?LAB: P-Comprehensive Metabolic Panel (CMP) (Collection Date & Time - 02/07/2024 02:55 PM)?gluc 110, bun 21, Cr 1.66, gfr 48, bili 1.5* Value Reference Range A /G Ratio 2.0 1.1-2.5 - mg/dL * A lbumin 4.5 3.5-5.3 - g/dL * A lkaline Phosphatase 102 40-129 - IU/L * A LT (SGPT) 19 <5-55 - IU/L * A ST (SGOT) 25 <5-46 - IU/L * B ilirubin, Total 1.5 H <0.2-1.2 - mg/dL * B UN 21 H 6-20 - mg/dL * C alcium 9.3 8.6-10.4 - mg/dL * C hloride 103 97-108 - mEq/L * C O2 24 22-32 - mEq/L * C reatinine 1.66 H 0.70-1.30 - mg/dL * G lucose 110 H 65-99 - mg/dL * P otassium 3.9 3.5-5.3 - mEq/L * S odium 137 135-145 - mEq/L * P rotein 6.8 6.0-8.3 - g/dL * e GFR by Creatinine 48 L >59 - mL/min/1.73m2 * Chyna Plaza 02/09/2024 4:29: 18 PM >See phone encounter ?LAB: Glycohemoglobin A1c (in house) (Collection Date & Time - 02/07/2024)? 5.7%* Value Reference Range g lycohemoglobin 5.7% 5 - 6.5 % * Mary Kirby 02/07/2024 4:57 :33 PM > Chyna Plaza 02/09/2024 4:29:18 PM >See phone encounter 3.?Hand arthritis? Referral To:MARY JACKSON??Hand Surgery ?Reason: 4.?Others? Continue Famotidine Tablet, 20 MG, 1 tab(s), orally, once a day (at bedtime).?? Notes: Labs from recent health fair reviewed in office today (Lipid, glucose, PSA) See report? * Procedure Codes: 8 3036 GLYCATED HEMOGLOBIN TEST, Modifiers: QW * Follow Up: 6 Months * Images: Billing Information: * Visit Code: 91825 Office Visit, Est Pt., Level 4. * Procedure Codes: 54865 GLYCATED HEMOGLOBIN TEST. Modifiers: QW * Electronic signature of Katerina Peres MD on 04/14/2025 at 05:05 PM EDT Sign off status: Pending * Provider: Gabriela Peres M.D. Date: 0 02/07/2024 Generated for Clark chavarria/Faustino/eTransmitting on: 0 04/14/2025 05:05 PM EDT History and Physical Notes * HPI (History of Present Illness) Category Sub-Category Detail Notes Category Not es Cardiology Hyperlipidemia Pt here for 6 mo f/u, states he had cholesterol checked 12/18/2023 and does have copy with him today Examination Category Sub-Category Detail Notes Category Not es Cardiology Lungs: clear, no rales or wheezes HEENT: unremarkable Heart sounds: RRR, normal S1, S2 Extremities: no leg edema General Appearance: pleasant, NAD Consultation Request Notes Referral Date Referring Provider Referred Provider Not es 02/07/2024 Thai Peres MARGARET
--- OUTSIDE RECORDS SUMMARY | 2024-08-09 11:30 | XMS_ITS ---
Author Organization [facility] Address [address] [facility] [address] [place] [id number] Care Team Providers Care Front Office Attendant Name Role Phone Thai Peres Primary Care Provider Venkat Car Unavailable [phone] Allergies No Known Allergies REASON FOR VISIT 6 month f/u Medications Medication SIG (Take, Route, Frequency, Duration) Notes Start Date End Date Status Famotidine 20 MG 1 tab(s) orally once a day (at bedtime) Active Atorvastatin Calcium 20 MG 1 tab(s) oral ly once a day; Duration: 90 days Active Problems Problem Type SNOMED Code ICD Code Onset Dates Problem Status W/U Status Risk Notes Problem Chronic kidney disease stage 3A (disorder) (898771491) Stage 3a chronic kidney disease (CKD) (N18.31) Active confirmed Vital Signs Blood pressure systolic 120 mm Hg 08/09/20 24 Blood pressure diastolic 70 mm Hg 024 Heart Rate 80 /min 08/09/2024 Height 72 in 08/09/2024 Weight 206.6 lbs 08/09/2024 BMI 28.02 kg/m2 08/09/2024 Encounters Encounter Location Date Provider Diagnosis [facility] [address] [place] [id number] 08/09/2024 Thai Peres Pure hypercholestero lemia E78.00 ; Stage 3a chronic kidney disease (CKD) N18.31 ; Heartburn R12 and Prostate cancer screening Z12.5 Assessments Encounter Date Diagnosis (ICD Code) Assessment Notes Treatment Notes Treatment Clinical Notes Section Notes 08/09/2024 Pure hypercholesterolemia (ICD-10 - E78.00) 08/09/2024 Stage 3a chronic kid leslie disease (CKD) (ICD-10 - N18.31) 08/09/2024 Heartburn (ICD-10 - R12) 08/09/2024 Prostate cancer screening (ICD-10 - Z12.5) 08/09/2024 Other Patient will return when fasting next week for Lipids, CMP, Urine Micro, PSA and TSH with reflex to free T4 Plan Of Treatment Medication Medication Name Sig Start Date Stop Date Notes Famotidine 20 MG 1 tab(s) orally once a day (at bedtime) Atorvastatin Calcium 20 MG 1 tab(s) oral ly once a day; Duration: 90 days Treatment Notes Assessment Notes Other Patient will return when fasting next week for Lipids, CMP, Urine Micro, PSA and TSH with reflex to free T4 Next Appt Details Follow Up: 1 Year, Reason: Provider Name:Thai Stockton ry, 08/08/2025 04:00:00 PM, [address] [facility] [address], [address], [place], [place], [id number], Progress Notes * BRYCE STOLLDOB: 7 (60 yo M)Acc No.[id number]:08/09/2024 Progress Notes Patient: BRYCE BASS Provider: Gabriela Peres M.D. :1965 A ge:59 Y S ex:Male Date:08/09/2024 Address:[address] [place] [address], [place] [id number] Subjective: * Chief Complaints: * 1 . 6 month f/u. * HPI: C ardiology: 59 year old male presents with c/o Hyperlipidemia P t here for 6 mo f/u, pt states that he is not fasting today. * ROS: D ERMATOLOGY: no R [...] in hands, s/p ortho evaluation, Impaired fasting glucose, Chronic kidney disease. * Surgical History: A ppendectomy , Colonoscopy [...] ,Years: , Determination:. * Medications: T aking Famotidine 20 MG Tablet 1 tab(s) orally once a day (at bedtime) , Taking Atorvastatin Calcium 20 MG Tablet 1 tab(s) orally once a day , Medication List reviewed and reconciled with the patient * Allergies: N .K.D.A. Objective: * Vitals: W t:206.6, Temp:97.8, BP:120/70, HR:80, Nurse:thom, Ht: 72, BMI:28.02. * Examination: C ardiology: General Appearance: p leasant, NAD. H EENT: u nremarkable. H eart sounds: R RR, normal S1, S2. L ungs: c lear, no rales or wheezes.?Extremities: n o leg edema. Assessment: * Assessment: 1. P ure hypercholesterolemia - E78.00 (Primary) 2 . S tage 3a chronic kidney disease (CKD) - N18.31 3 . H eartburn - R12 4 . P rostate cancer screening - Z12.5 Plan: * Treatment: 2. H eartburn Continue Famotidine Tablet, 20 MG, 1 tab(s), orally, once a day (at bedtime). 3. O thers Notes: Patient will return when fasting next week for Lipids, CMP, Urine Micro, PSA and TSH with reflex to free T4 * Follow Up: 1 Year * Images: Billing Information: * Visit Code: 14859 Office Visit, Est Pt., Level 4. * Procedure Codes: * Electronic signature of Katerina Peres MD on 04/14/2025 at 05:05 PM EDT Sign off status: Pending * Provider: Gabriela Peres M.D. Date: 10/09/2023 Generated for Clark chavarria/Faustino/eTchristinasmitting on: 0 04/14/2025 05:05 PM EDT History and Physical Notes * HPI (History of Present Illness) Category Sub-Category Detail Notes Category Not es Cardiology Hyperlipidemia Pt here for 6 mo f/u, pt states that he is not fasting today Examination Category Sub-Category Detail Notes Category Not es Cardiology Lungs: clear, no rales or wheezes HEENT: unremarkable Heart sounds: RRR, normal S1, S2 Extremities: no leg edema General Appearance: pleasant, NAD
--- OUTSIDE RECORDS SUMMARY | 2024-08-18 04:15 | XMS_ITS ---
[facility] [address] [facility] [address] [place] [id number] Care Team Providers Care Beveler Name Role Phone Thai Peres Primary Care Provider Venkat Car Unavailable [phone] Results Component Value Reference Range Notes P-Comprehensive Metabolic Pa jin (CMP) Reviewed date:08/23/2024 09:07:23 AM Interpretation:satisfactory Performing Lab: Notes/Report: Test performed by [email or web address] [address] [place], [place] [address] , [address], [place] [address] Gavino Abreu MD, Statistical Modeler CLIA: [id number] Sodium 141 135-145 mmol/L Potassium 4.3 3.5-5.3 mmol/L Chloride 106 97-108 mmol/L CO2 24 22-32 mmol/L Glucose 105 65-99 mg/dL BUN 16 6-20 mg/dL Creatinine 1.30 0.70-1.30 mg/dL Calcium 8.9 8.6-10.4 mg/dL eGFR by Creatinine 64 >59 mL/min/1.73m2 Protein 6.5 6.0-8.3 g/dL Albumin 4.1 3.5-5.3 g/dL Alkaline Phosphatase 107 40-129 IU/L ALT (SGPT) 19 <5-55 IU/L AST (SGOT) 15 <5-46 IU/L Bilirubin, Total 1.2 <0.2-1.2 mg/dL A/G Ratio 1.7 1.1-2.5 P-Lipid Panel Reviewed date:08/23/2024 09:07:23 AM Interpretation:satisfactory Performing Lab: Notes/Report: Test performed by [email or web address] [address] [place], [place] [address] , [address], [place] [address] Gavino Abreu MD, Statistical Modeler CLIA: [id number] Cholesterol 131 <200 mg/dL Triglycerides 95 <150 mg/dL HDL Cholesterol 32 >39 mg/dL Cholesterol / HDL Ratio 4.09 0.00-4.99 Ratio Non-HDL Cholesterol 99 <130 mg/dL LDL Cholesterol (Calculation) 80 <130 mg/dL LDL Cholesterol Levels* Less than 100 mg/dL Optimal 100 to 129 mg/dL Near Optimal/ Above Optimal 130 to 159 mg/dL Borderline High 160 to 189 mg/dL High 190 mg/dL and above Very High * Categories as recommended by the 2004 ATPIII guidelines LDL/HDL Ratio 2.5 <3.3 Ratio LDL Cholesterol Patient History Test Date: 08/18/2024 LDL Results: 80 Units: mg/dL % Change: - P-PSA Reviewed date:08/23/2024 09:07:23 AM Interpretation:Normal Performing Lab: Notes/Report: Test performed by [facility], [address] , [facility] [address], [place] [address] Gavino Abreu MD, Statistical Modeler CLIA: [id number] PSA 1.53 <4.00 ng/mL Please note this is an ultrasensitive PSA assay with a lower limit of detection of 0.014 ng/mL. This test is performed by the [employer] ECLIA methodology. Values obtained with different assay methods or kits cannot be directly compared. P-TSH reflex to FT4 Reviewed date:08/23/2024 09:07:23 AM Interpretation:Normal Performing Lab: Notes/Report: Test performed by [email or web address] [address] [place] [address] , [address], [place] [address] Gavino Abreu MD, Statistical Modeler CLIA: [id number] TSH reflex to FT4 0.96 0.43-5.25 mU/L P-Microalbumin/Creatinine, R andom Urine Sample Reviewed date:08/23/2024 09:07:23 AM Interpretation:satisfactory Performing Lab: Notes/Report: Test performed by [email or web address] [address] [place] [address] , [address], [place] [address] Gavino Abreu MD, Statistical Modeler CLIA: [id number] Albumin/Creatinine Ratio, Urine See Comment 0-30 ug/mg Unable to calculate Urine Albumin/Creatinine Ratio when urine creatinine or urine albumin fall outside established reportable range. Microalbumin, Urine, Random <0.3 Creatinine, Urine 181.2 REASON FOR VISIT blood work Encounters Encounter Location Date Provider Diagnosis [facility] [address] [place] [id number] 08/18/2024 Thai Peres Pure hypercholestero lemia E78.00 ; Stage 3a chronic kidney disease (CKD) N18.31 and Prostate cancer screening Z12.5 Assessments Encounter Date Diagnosis (ICD Code) Assessment Notes Treatment Notes Treatment Clinical Notes Section Notes 08/18/2024 Pure hypercholesterolemia (ICD-10 - E78.00) 08/18/2024 Stage 3a chronic kid leslie disease (CKD) (ICD-10 - N18.31) 08/18/2024 Prostate cancer screening (ICD-10 - Z12.5) Plan Of Treatment Next Appt Details Provider Name:Thai Stockton ry, 08/08/2025 04:00:00 PM, [address], [place], [id number], Progress Notes * BRYCE STOLLDOB: 7 (60 yo M)Acc No.[id number]:08/18/2024 Patient: BRYCE BASS Provider: Gabriela Peres M.D. :1965 A ge:59 Y S ex:Male Date:08/18/2024 Address:[address] [place], [place] [id number] Subjective: * Chief Complaints: * 1 . Blood work. * Medical History: Objective: * Vitals: Assessment: * Assessment: 1. P ure hypercholesterolemia - E78.00 (Primary) 2 . S tage 3a chronic kidney disease (CKD) - N18.31 3 . P rostate cancer screening - Z12.5 ? Plan: * Treatment: Value Reference Range A /G Ratio 1.7 1.1-2.5 - * A lbumin 4.1 3.5-5.3 - g/dL * A lkaline Phosphatase 107 40-129 - IU/L * A LT (SGPT) 19 <5-55 - IU/L * A ST (SGOT) 15 <5-46 - IU/L * B ilirubin, Total 1.2 <0.2-1.2 - mg/dL * B UN 16 6-20 - mg/dL * C alcium 8.9 8.6-10.4 - mg/dL * C hloride 106 97-108 - mmol/L * C O2 24 22-32 - mmol/L * C reatinine 1.30 0.70-1.30 - mg/dL * G lucose 105 H 65-99 - mg/dL * P otassium 4.3 3.5-5.3 - mmol/L * S odium 141 135-145 - mmol/L * P rotein 6.5 6.0-8.3 - g/dL * e GFR by Creatinine 64 >59 - mL/min/1.73m2 * Sara Becerra 08/22/2024 11:41:2 6 AM > LM for return call Sara Becerra 08/23/2024 9:07:24 AM > Pt informed ?LAB: P-Lipid Panel (Collection Date & Time - 08/18/2024 07:40 AM)? satisfactory* Value Reference Range C holesterol / HDL Ratio 4.09 0.00-4.99 - Ratio * C holesterol 131 <200 - mg/dL * H DL Cholesterol 32 L >39 - mg/dL * L DL Cholesterol (Calculation) 80 <130 - mg/d L * L DL/HDL Ratio 2.5 <3.3 - Ratio * N on-HDL Cholesterol 99 <130 - mg/dL * T riglycerides 95 <150 - mg/dL * Sara Becerra 08/22/2024 11:41:2 6 AM > [facility] 08/23/[facility] 9:07:24 AM > Pt informed ?LAB: P-TSH reflex to FT4 (Collection Date & Time - 08/18/2024 07:40 AM)? Normal* Value Reference Range T SH reflex to FT4 0.96 0.43-5.25 - mU/L * Sara Becerra 08/22/2024 11:41:2 6 AM > [facility] 08/23/2024 9:07:24 AM > Pt informed 2.?Stage 3a chronic kidney disease (CKD)?LAB: P-Comprehensive Metabolic Panel (CMP) (Collection Date & Time - 08/18/2024 07:40 AM)?satisfactory* Value Reference Range A /G Ratio 1.7 1.1-2.5 - * A lbumin 4.1 3.5-5.3 - g/dL * A lkaline Phosphatase 107 40-129 - IU/L * A LT (SGPT) 19 <5-55 - IU/L * A ST (SGOT) 15 <5-46 - IU/L * B ilirubin, Total 1.2 <0.2-1.2 - mg/dL * B UN 16 6-20 - mg/dL * C alcium 8.9 8.6-10.4 - mg/dL * C hloride 106 97-108 - mmol/L * C O2 24 22-32 - mmol/L * C reatinine 1.30 0.70-1.30 - mg/dL * G lucose 105 H 65-99 - mg/dL * P otassium 4.3 3.5-5.3 - mmol/L * S odium 141 135-145 - mmol/L * P rotein 6.5 6.0-8.3 - g/dL * e GFR by Creatinine 64 >59 - mL/min/1.73m2 * Sara Becerra 08/22/2024 11:41:2 6 AM > LM for return call Sara Becerra 08/23/2024 9:07:24 AM > Pt informed ?LAB: P-TSH reflex to FT4 (Collection Date & Time - 08/18/2024 07:40 AM)? Normal* Value Reference Range T SH reflex to FT4 0.96 0.43-5.25 - mU/L * Sara Becerra 08/22/2024 11:41:2 6 AM > LM for return call Sara Becerra 08/23/2024 9:07:24 AM > Pt informed ?LAB: P-Microalbumin/Creatinine, Random Urine Sample (Collection Date & Time - 08/18/2024 07:40 AM)?satisfactory* Value Reference Range A lbumin/Creatinine Ratio, Urine See Comment L 0-30 - ug /mg * C reatinine, Urine 181.2 - mg/dL * M icroalbumin, Urine, Random <0.3 - mg/dL * Sara Becerra 08/22/2024 11:41:2 6 AM > LM for return call Sara Becerra 08/23/2024 9:07:24 AM > Pt informed 3.?Prostate cancer screening?LAB: P-PSA (Collection Date & Time - 08/18/2024 07:40 AM)?Normal* Value Reference Range P SA 1.53 <4.00 - ng/mL * Sara Becerra 08/22/2024 11:41:2 6 AM > LM for return call Sara Becerra 08/23/2024 9:07:24 AM > Pt informed * Procedure Codes: 3 6415 VENIPUNCT, ROUTINE* * Images: Billing Information: * Visit Code: * Procedure Codes: 79341 VENIPUNCT, ROUTINE*. * Electronic signature of Katerina Peres MD on 04/14/2025 at 05:05 PM EDT Sign off status: Pending * Provider: Gabriela Peres M.D. Date: 10/18/2023 Generated for Printi ng/Faxing/eTransmitting on: 0 04/14/2025 05:05 PM EDT
[2025-04-14 17:00] VITALS: BP 134/78; PULSE 71; RESP 18; TEMP 36.7; O2SAT 97; BMI 27.8
--- OUTSIDE RECORDS SUMMARY | 2025-04-14 17:04 | XMS_ITS | Encounter Summary ---
Author Organization [employer] ([place], [place], [place], [place]) Address [address] [place] [address] Care Team Providers Care Fruit Harvester Name Role Phone Unavailable Primary Care Provider Unavailabl e Encounter Details Date Type Department Care Team (Late st Contact Info) Description 04/14/2022 Transcribed Document [facility] Family Medicine [facility] [place] [address] ProviderPrasad MD [facility] [place] [address] Social History Tobacco Use Types Packs/Day Years Used Date Smoking Tobacco: Never Assessed Sex and Gender Information Value Date Recorded Sex Assigned at Not on file Legal Sex Male 10:05 AM CDT Gender Identity Not on file Sexual Orientation Not on file documented as of this encounter Miscellaneous Notes * [employer] Conversion Note - Historical ProviderMD - 04/14/2022 10:02 AM CDT PAT Adult Entered On: 04/14/2022 10:03 EDT Performed On: 04/14/2022 10:02 EDT by Brandy Sullivan RN Pain Assessment Pain Assessment : Initial assessment Pain Scale Used : 0-10 Scale Brandy Sullivan RN - 04/14/2022 10:02 EDT Pain Scale Intensity : 0 Brandy Sullivan RN - 04/14/2022 10:02 EDT Image 4 - Images currently included in the form version of this document have not been included in the text rendition version of the form. Electronically signed by Wilder Cooper Conversion Service Station Console Operator Tavia at 01/05/2023 10:34 PM CDT documented in this encounter Plan of Treatment Not on file documented as of this encounter Visit Diagnoses Not on filedocumented in this encounter
--- OUTSIDE RECORDS SUMMARY | 2025-04-14 17:04 | XMS_ITS | Clinical Summary ---
Author Organization [employer] ([place], [place], [place], [place]) Address [address] [place] [address] Care Team Providers Care Cafeteria Team Leader Name Role Phone Unavailable Primary Care Provider Unavailabl e Social History Tobacco Use Types Packs/Day Years Used Date Smoking Tobacco: Never Assessed Sex and Gender Information Value Date Recorded Sex Assigned at Not on file Legal Sex Male 10:05 AM CDT Gender Identity Not on file Sexual Orientation Not on file Plan of Treatment Not on file
--- OUTSIDE RECORDS SUMMARY | 2025-04-14 17:04 | XMS_ITS | Encounter Summary ---
Author Organization [employer] ([place], [place], [place]) Address [address] [place] [address] Care Team Providers Care Wet Mixer Name Role Phone Unavailable Primary Care Provider Unavailabl e Encounter Details Date Type Department Care Team (Late st Contact Info) Description 04/14/2022 Transcribed Document [facility] [place] Family Medicine Counts include 234 beds at the [facility] [place] [address] ProviderPrasad MD [address] [place] [address] Social History Tobacco Use Types Packs/Day Years Used Date Smoking Tobacco: Never Assessed Sex and Gender Information Value Date Recorded Sex Assigned at Not on file Legal Sex Male 10:05 AM CDT Gender Identity Not on file Sexual Orientation Not on file documented as of this encounter Miscellaneous Notes * Cerner Conversion Note - Prasad ProviderMD - 04/14/2022 1:08 PM CDT [facility] Main OR PreOp Summary Primary Physician: HELENA LUJAN JR, MD-URO Finalized Date/Time: 04/14/22 13:31:49 Pt. Name: KERWIN STOLL D.O.B./Sex: 1965 Male Med Rec #: [id number] Physician: HELENA LUJAN JR, MD-URO Financial #: [id number] Pt. Type: O Room/Bed: [facility]/4 Admit/Disch: 04/14/22 05:19:00 - Institution: [facility] PreOp Case Times Entry 1 In Preop 04/14/22 09:05:00 Ready for Holding n/a Room Patient Ready for 04/14/22 10:15:00 Surgery Patient Out of Preop 04/14/22 12:48:00 Patient Out of n/a Holding Room Last Modified By: Brandy Sullivan RN 04/14/22 13:30:35 [facility] PreOp Case Times Audit 04/14/22 13:30:35 Recovery Assistant: [id number] Modifier: [id number] <+> 1 Patient Out of Preop Finalized By: Brandy Sullivan RN Document Signatures Signed By: Brandy Sullivan RN 04/14/22 13:31 Electronically signed by Wilder Cooper Conversion Audio Visual Production Specialist Cerner at 01/05/2023 10:48 PM CDT documented in this encounter Plan of Treatment Not on file documented as of this encounter Visit Diagnoses Not on filedocumented in this encounter
--- OUTSIDE RECORDS SUMMARY | 2025-04-14 17:04 | XMS_ITS | Encounter Summary ---
Author Organization [employer] ([place], [place], [place], [place]) Address [address] [place] [address] Care Team Providers Care Shipping Technician Name Role Phone Unavailable Primary Care Provider Unavailabl e Encounter Details Date Type Department Care Team (Late st Contact Info) Description 04/14/2022 Transcribed Document [facility] Family Medicine [facility] [place] [address] ProviderPrasad MD [facility] [address] Social History Tobacco Use Types Packs/Day Years Used Date Smoking Tobacco: Never Assessed Sex and Gender Information Value Date Recorded Sex Assigned at Not on file Legal Sex Male 10:05 AM CDT Gender Identity Not on file Sexual Orientation Not on file documented as of this encounter Miscellaneous Notes * [employer]ner Conversion Note - Prasad ProviderMD - 04/14/2022 12:11 PM CDT Time Out Documentation Entered On: 04/14/2022 12:13 EDT Performed On: 04/14/2022 12:11 EDT by Brandy Sullivan RN Time Out Documentation Procedure to be Performed : right TAP peripheral nerve block Time Out Pause Time : 04/14/2022 12:11 EDT All Activity Suspended : Yes Team Verbally Confirms Information : Correct patient identity, Correct side and site are marked, Consent form is present and accurate, Agreement on the procedure to be done, Correct patient position, Confirm the skin prep has dried, Performed in location of procedure after prepped/draped, Performed before each procedure if multiple procedures Brandy Sullivan RN - 04/14/2022 12:13 EDT documented in this encounter Plan of Treatment Not on file documented as of this encounter Visit Diagnoses Not on filedocumented in this encounter
--- OUTSIDE RECORDS SUMMARY | 2025-04-14 17:04 | XMS_ITS | Encounter Summary ---
Author Organization [employer] ([place], [place], [place], [place]) Address [address] [place] [address] Care Team Providers Care Ad Operations Coordinator Name Role Phone Unavailable Primary Care Provider Unavailabl e Encounter Details Date Type Department Care Team (Late st Contact Info) Description 04/14/2022 Transcribed Document [facility] [place] Family Medicine [facility] [place] [address] ProviderPrasad MD [facility] [place] [address] Social History Tobacco Use Types Packs/Day Years Used Date Smoking Tobacco: Never Assessed Sex and Gender Information Value Date Recorded Sex Assigned at Not on file Legal Sex Male 10:05 AM CDT Gender Identity Not on file Sexual Orientation Not on file documented as of this encounter Miscellaneous Notes * [employer] Conversion Note - Prasad ProviderMD - 04/14/2022 4:12 PM CDT Education-(VTE) / (DVT) Entered On: 04/14/2022 16:28 EDT Performed On: 04/14/2022 16:12 EDT by Gardenia Geiger Rn Flex I Teaching/Learning Assessment Barriers To Learning : None evident Individuals Taught : Patient Readiness to Learn : Cooperative Readiness to Learn : Explanation Gardenia Geiger Rn Flex I - 04/14/2022 16:28 EDT documented in this encounter Plan of Treatment Not on file documented as of this encounter Visit Diagnoses Not on filedocumented in this encounter
--- OUTSIDE RECORDS SUMMARY | 2025-04-14 17:05 | XMS_ITS | Encounter Summary ---
Author Organization [employer] ([place], [place], [place], [place]) Address [address] [place] [address] Care Team Providers Care Junior Sales Representative Name Role Phone Unavailable Primary Care Provider Unavailabl e Encounter Details Date Type Department Care Team (Late st Contact Info) Description 04/16/2022 Transcribed Document [facility] [place] Family Medicine [facility] [place] [address] ProviderPrasad MD [address] [place] [id number] Social History Tobacco Use Types Packs/Day Years Used Date Smoking Tobacco: Never Assessed Sex and Gender Information Value Date Recorded Sex Assigned at Not on file Legal Sex Male 10:05 AM CDT Gender Identity Not on file Sexual Orientation Not on file documented as of this encounter Miscellaneous Notes * Cerner Conversion Note - Prasad Torre MD - 04/16/2022 2:03 PM CDT Patient: KERWIN SCHULTZ Age: 57 years Sex: Male : 1965 Associated Diagnoses: Right renal mass; Status post robotic assisted laparoscopic right partial nephrectomy; Hyperlipemia; At risk for sleep apnea; Tobacco use disorder, continuous; Acute kidney injury Author: CRISTY ROGEL MD-INT Basic Information awake alert comfortable, Has dry oral mucosa Does not like to drink water and I will give him a bolus of 1 L over 1 hour No nausea or vomit No trouble with urination Worsening renal functions, multifactorial secondary to hemodynamic from surgery, decreased oral fluid intake and medications. Patient is not on any nephrotoxic medications Review of Systems Constitutional: No fever, No chills. Eye: No discharge, No blurring, No double vision, No visual disturbances. Ear/Nose/Mouth/Throat: No nasal congestion, No sore throat. Respiratory: No shortness of breath, No cough. Cardiovascular: No chest pain, No palpitations. Gastrointestinal: No nausea, No vomiting. Genitourinary: No change in urine stream. Musculoskeletal: Negative. Integumentary: No rash, No pruritus. Neurologic: Alert and oriented X4. Health Status Allergies: Allergies (1) Active Reaction Tape Skin sensitivity Current medications: (Selected) Inpatient Medications Ordered Colace: 100 mg, Oral, Cap, BID, Routine, Start 04/14/22 21:00:00 EDT, 04/14/22 16:42:00 EDT Dilaudid: 0.5 mg, IV Push, Inj, Q2H, PRN for Pain (Severe 7-10), Routine, Start 04/14/22 16:52:00 EDT, 04/14/22 16:52:00 EDT Dilaudid: 0.5 mg, IV Push, Inj, Q4H, PRN for Pain (Severe 7-10), Routine, Start 04/14/22 16:42:00 EDT, 04/14/22 16:42:00 EDT Dulcolax Laxative: 10 mg, Rectal, Supp, BID, PRN for Constipation, Routine, Start 04/14/22 16:52:00 EDT, 04/14/22 16:52:00 EDT Dulcolax Laxative: 10 mg, Rectal, Supp, Daily, Routine, Start 04/15/22 9:00:00 EDT, 04/14/22 16:42:00 EDT Lovenox: 40 mg, SubCutaneous, Inj, [id number], Routine, Start 04/15/22 8:00:00 EDT, 04/14/22 16:42:00 EDT Milk of Magnesia 8% oral suspension: 30 mL, Oral, Liquid, Daily, PRN for Constipation, Routine, Start 04/14/22 16:52:00 EDT Nicoderm C-Q 21 mg/24 hr transdermal film, extended release: 1 Patch, TransDermal, Patch, Daily, Routine, Start 04/15/22 9:00:00 EDT Normal Saline Bolus: 1,000 mL, IV Piggyback, Inj, 1-Time, Routine, Start 04/16/22 15:00:00 EDT, Stop 04/16/22 15:00:00 EDT, 1,000 mL/Hr, Infuse Over: 60 Minute(s) Percocet 5/325 oral tablet: 1 Tab, Oral, Tab, Q4H, PRN for Pain (Moderate 4-6), Routine, Start 04/14/22 16:42:00 EDT Protonix: 40 mg, Oral, EC Tab, Daily, Routine, Start 04/15/22 9:00:00 EDT, 04/14/22 16:42:00 EDT Restoril: 15 mg, Oral, Cap, At Bedtime, PRN for Sleep, Routine, Start 04/14/22 16:52:00 EDT, 04/14/22 16:52:00 EDT Sodium Chloride 0.9% intravenous solution 1,000 mL: 1,000 mL, Bag Volume (mL) = 1,000, IntraVENous, Rate = 125 mL/Hr, start date 04/14/22 16:42:00 EDT, Routine, 2.13, m2 Tylenol: 325 mg, Oral, Tab, TID, PRN for Pain (Mild 1-3), Routine, Start 04/14/22 7:49:00 EDT, 04/14/22 7:49:00 EDT Tylenol: 650 mg, Oral, Tab, Q4H, PRN for Other (See Comment), Routine, Start 04/14/22 16:52:00 EDT, 04/14/22 16:52:00 EDT Xanax: 0.25 mg, Oral, Tab, Q6H, PRN for Anxiety, Routine, Start 04/14/22 16:52:00 EDT, 04/14/22 16:52:00 EDT Zofran: 4 mg, IV Push, Inj, Q4H, PRN for Nausea, Routine, Start 04/14/22 16:42:00 EDT, 04/14/22 16:42:00 EDT Zofran: 4 mg, IV Push, Inj, Q4H, PRN for Nausea/Vomiting, Routine, Start 04/14/22 16:52:00 EDT, 04/14/22 16:52:00 EDT acetaminophen-HYDROcodone 325 mg-5 mg oral tablet: 1 Tab, Oral, Tab, Q4H, PRN for Pain (Moderate 4-6), Routine, Start 04/14/22 16:52:00 EDT acetaminophen-HYDROcodone 325 mg-5 mg oral tablet: 2 Tab, Oral, Tab, Q4H, PRN for Pain (Severe 7-10), Routine, Start 04/14/22 16:52:00 EDT atorvastatin: 20 mg, Oral, Tab, At Bedtime, Routine, Start 04/14/22 21:00:00 EDT, 04/14/22 7:49:00 EDT calcium gluconate: 1 Gram 50 mL, IV Piggyback, Inj, Daily, PRN for Other (See Comment), Routine, Start 04/14/22 16:49:00 EDT, 50 mL/Hr, Infuse Over: 60 Minute(s), 04/14/22 16:49:00 EDT calcium gluconate: 2 Gram 100 mL, IV Piggyback, Inj, Daily, PRN for Other (See Comment), Routine, Start 04/14/22 16:49:00 EDT, 100 mL/Hr, Infuse Over: 60 Minute(s), 04/14/22 16:49:00 EDT calcium gluconate: 2 Gram 100 mL, IV Piggyback, Inj, Q12H, PRN for Other (See Comment), Routine, Start 04/14/22 16:49:00 EDT, 100 mL/Hr, Infuse Over: 60 Minute(s), 04/14/22 16:49:00 EDT cefOXitin: 2 Gram, IV Piggyback, Inj, 1-Time, infuse over 30 Minute(s), Routine, Start 04/14/22 11:00:00 EDT, Stop 04/14/22 11:00:00 EDT, 100 mL/Hr, Indication: Surgical Prophylaxis cloNIDine: 0.1 mg, Oral, Tab, Q4H, PRN for Hypertension, Routine, Start 04/14/22 16:52:00 EDT, 04/14/22 16:52:00 EDT diphenhydrAMINE: 25 mg, Oral, Tab, Q6H, PRN for Allergies, Routine, Start 04/14/22 16:52:00 EDT, 04/14/22 16:52:00 EDT magnesium sulfate: 2 Gram 50 mL, IV Piggyback, Inj, Daily, PRN for Other (See Comment), Routine, Start 04/14/22 16:49:00 EDT, 25 mL/Hr, Infuse Over: 2 Hour(s), 04/14/22 16:49:00 EDT magnesium sulfate: 2 Gram 50 mL, IV Piggyback, Inj, Q2H, PRN for Other (See Comment), Routine, Start 04/14/22 16:49:00 EDT, 25 mL/Hr, Infuse Over: 2 Hour(s), 04/14/22 16:49:00 EDT mannitol 25% intravenous solution: 12.5 Gram 50 mL, IV Piggyback, Inj, 1-Time, Routine, Start 04/14/22 12:00:00 EDT, Stop 04/14/22 12:00:00 EDT, 25 mL/Hr, Infuse Over: 2 Hour(s), 04/14/22 11:11:00 EDT metoclopramide: 5 mg, IV Push, Inj, Q6H, PRN for Nausea/Vomiting, Routine, Start 04/14/22 16:52:00 EDT, 04/14/22 16:52:00 EDT potassium chloride 10 mEq/50 mL intravenous solution: 10 mEq 50 mL, IV Piggyback, Inj, Q1H, PRN for Other (See Comment), Routine, Start 04/14/22 16:49:00 EDT, 50 mL/Hr, Infuse Over: 1 Hour(s), 04/14/22 16:49:00 EDT potassium chloride 20 mEq oral tablet, extended release: 20 mEq 1 Tab, Oral, CR Tab, Q2H, PRN for Other (See Comment), Routine, Start 04/14/22 16:49:00 EDT, 04/14/22 16:49:00 EDT potassium chloride 20 mEq oral tablet, extended release: 60 mEq 3 Tab, Oral, CR Tab, Q2H, PRN for Other (See Comment), Routine, Start 04/14/22 16:49:00 EDT, 04/14/22 16:49:00 EDT sodium phosphate: 15 mMole 5 mL, IV Piggyback, Inj, Daily, PRN for Other (See Comment), Routine, Start 04/14/22 16:49:00 EDT, 50 mL/Hr, Infuse Over: 5 Hour(s), 04/14/22 16:49:00 EDT sodium phosphate: 15 mMole 5 mL, IV Piggyback, Inj, Q6H, PRN for Other (See Comment), Routine, Start 04/14/22 16:49:00 EDT, 50 mL/Hr, Infuse Over: 5 Hour(s), 04/14/22 16:49:00 EDT traZODone: 50 mg, Oral, Tab, At Bedtime, PRN for Insomnia, Routine, Start 04/14/22 16:52:00 EDT, 04/14/22 16:52:00 EDT Prescriptions Prescribed Colace 100 mg oral capsule: 1 Cap, Oral, BID, # 20 Cap, 0 Refill(s), Pharmacy: [facility], 180.34, , 04/09/22 14:25:00 EDT, CLINICALHEIGHT, 90.91, kg, 04/09/22 14:25:00 EDT, CLINICALWEIGHT Macrobid 100 mg oral capsule: 1 Cap, Oral, BID, X 14 Day(s), # 28 Cap, 0 Refill(s), Pharmacy: [facility], 180.34, , 04/09/22 14:25:00 EDT, CLINICALHEIGHT, 90.91, kg, 04/09/22 14:25:00 EDT, CLINICALWEIGHT MiraLax oral powder for reconstitution: 17 Gram, Oral, Daily, # 255 Gram, 0 Refill(s), Pharmacy: [facility], 180.34, , 04/09/22 14:25:00 EDT, CLINICALHEIGHT, 90.91, kg, 04/09/22 14:25:00 EDT, CLINICALWEIGHT [place] 7.5 mg-325 mg oral tablet: 1 Tab, Oral, Tab, Q4H, PRN as needed for pain, # 30 Tab, 0 Refill(s), Pharmacy: [facility], 180.34, , 04/09/22 14:25:00 EDT, CLINICALHEIGHT, 90.91, kg, 04/09/22 14:25:00 EDT, CLINICALWEIGHT Documented Medications Documented Aleve: 220 mg, Oral, Q12H, PRN as needed for arthritis, 0 Refill(s) Multiple Vitamins oral tablet: 1 Tab, Oral, Daily, 0 Refill(s) Pepcid AC 10 mg oral tablet: 1 Tab, Oral, Daily, 0 Refill(s) Tylenol 325 mg oral capsule: 1 Cap, Oral, TID, PRN as needed for pain, 0 Refill(s) atorvastatin 20 mg oral tablet: 1 Tab, Oral, Daily, 0 Refill(s), Medications (37) Active Scheduled: (9) atorvastatin 20 mg tab 20 mg 1 Tab, Oral, At Bedtime bisacodyl 10 mg supp 10 mg 1 Supp, Rectal, Daily cefOXitin 2 Gram 50 mL, IV Piggyback, 1-Time docusate sodium 100 mg cap 100 mg 1 Cap, Oral, BID enoxaparin 40 mg/0.4 mL inj 40 mg 0.4 mL, SubCutaneous, [id number] mannitol 25% 12.5 Gram 50 mL, IV Piggyback, 1-Time nicotine 21 mg/24 hr patch 1 Patch, TransDermal, Daily pantoprazole EC 40 mg tab 40 mg 1 Tab, Oral, Daily Sodium Chloride 0.9% intravenous solution 1,000 mL, IV Piggyback, 1-Time Continuous: (1) NaCl 0.9% 1,000 mL 1,000 mL, IntraVENous, 125 mL/Hr PRN: (27) acetaminophen 325 mg tab 325 mg 1 Tab, Oral, TID acetaminophen 325 mg tab 650 mg 2 Tab, Oral, Q4H acetaminophen/HYDROcodone 325/5 mg tab 1 Tab, Oral, Q4H acetaminophen/HYDROcodone 325/5 mg tab 2 Tab, Oral, Q4H acetaminophen/oxyCODONE 325/5 mg tab 1 Tab, Oral, Q4H ALPRAZolam 0.25 mg tab 0.25 mg 1 Tab, Oral, Q6H bisacodyl 10 mg supp 10 mg 1 Supp, Rectal, BID calcium gluconate 1 Gram 50 mL, IV Piggyback, Daily calcium gluconate 2 Gram 100 mL, IV Piggyback, Daily calcium gluconate 2 Gram 100 mL, IV Piggyback, Q12H cloNIDine 0.1 mg tab 0.1 mg 1 Tab, Oral, Q4H diphenhydrAMINE 25 mg tab 25 mg 1 Tab, Oral, Q6H HYDROmorphone 1 mg/1 mL inj 0.5 mg 0.5 mL, IV Push, Q4H HYDROmorphone 1 mg/1 mL inj 0.5 mg 0.5 mL, IV Push, Q2H magnesium hydroxide 8% liq 30 mL 30 mL, Oral, Daily magnesium sulfate 2 Gram 50 mL, IV Piggyback, Daily magnesium sulfate 2 Gram 50 mL, IV Piggyback, Q2H metoclopramide 10 mg/2 mL inj 5 mg 1 mL, IV Push, Q6H ondansetron 4 mg/2 mL inj 4 mg 2 mL, IV Push, Q4H ondansetron 4 mg/2 mL inj 4 mg 2 mL, IV Push, Q4H potassium chloride 10 mEq 50 mL, IV Piggyback, Q1H potassium chloride CR 20 mEq tab 20 mEq 1 Tab, Oral, Q2H potassium chloride CR 20 mEq tab 60 mEq 3 Tab, Oral, Q2H sodium phosphate 15 mMole 5 mL, IV Piggyback, Daily sodium phosphate 15 mMole 5 mL, IV Piggyback, Q6H temazepam 15 mg cap 15 mg 1 Cap, Oral, At Bedtime traZODone 50 mg tab 50 mg 1 Tab, Oral, At Bedtime Problem list: Active Problems (4) At risk for sleep apnea Cancer Kidney Hyperlipemia Osteoarthritis Physical Examination VS/Measurements Vital Measurements 04/16/2022 9:41 EDT Systolic Blood Pressure 138 mmHg Diastolic Blood Pressure 64 mmHg Mean Arterial Pressure (MAP)-BMDI 82 Temperature Source Oral Temperature Mode Fahrenheit Temperature, Fahrenheit 99.1 Deg F Clinical Temperature, C 37.3 Deg C Heart Rate Monitored 84 bpm Respiratory Rate 18 Breaths/Min Oxygen Saturation 98 % Oxygen Therapy Mode Room air General: Alert and oriented, No acute distress. Eye: Pupils are equal, round and reactive to light, Extraocular movements are intact. HENT: Oral mucosa is moist. Neck: Supple, No carotid bruit, No jugular venous distention, No lymphadenopathy, No thyromegaly. Respiratory: Lungs are clear to auscultation, Breath sounds are equal. Cardiovascular: Normal rate, Regular rhythm, No murmur. Gastrointestinal: Soft, Non-tender, Normal bowel sounds, No organomegaly. Genitourinary: No costovertebral angle tenderness, No inguinal tenderness. Lymphatics: No lymphadenopathy neck, axilla, groin. Musculoskeletal: Normal strength, No swelling. Integumentary: Warm, Intact, No rash. Neurologic: Alert, Oriented, No focal deficits. Psychiatric: Cooperative, Appropriate mood & affect. Review / Management Results review: All Results 04/16/2022 4:50 EDT Sodium Level 138 mmol/L Potassium Level 4.0 mmol/L Chloride Level 105 mmol/L Carbon Dioxide Level 27 mmol/L Anion Gap 10 Glucose Level 132 mg/dL HI Blood Urea Nitrogen 13 mg/dL Creatinine Level 1.54 mg/dL HI eGFR 57 mL/min/1.73m2 LOW eGFR NonAfrican 47 mL/min/1.73m2 LOW Bun/Creatinine 8.4 Calcium Level 8.0 mg/dL LOW Protein Total 5.7 Gram/dL LOW Albumin Level 3.0 Gram/dL LOW Globulin 2.7 Gram/dL A/G Ratio 1.1 Bilirubin Total 1.4 mg/dL HI Alk Phos 81 Units/Liter AST 37 Units/Liter ALT 57 Units/Liter Hgb 13.2 Gram/dL LOW Hct 39.5 % LOW 04/15/2022 3:28 EDT Sodium Level 137 mmol/L Potassium Level 4.6 mmol/L Chloride Level 105 mmol/L Carbon Dioxide Level 24 mmol/L Anion Gap 13 Glucose Level 134 mg/dL HI Blood Urea Nitrogen 14 mg/dL Creatinine Level 1.42 mg/dL HI eGFR >60 mL/min/1.73m2 eGFR NonAfrican 52 mL/min/1.73m2 LOW Bun/Creatinine 9.9 Calcium Level 8.3 mg/dL LOW Protein Total 6.0 Gram/dL LOW Albumin Level 3.0 Gram/dL LOW Globulin 3.0 Gram/dL A/G Ratio 1.0 LOW Bilirubin Total 1.3 mg/dL Alk Phos 85 Units/Liter AST 44 Units/Liter HI ALT 51 Units/Liter WBC 19.9 K/uL HI RBC 4.40 Million/uL LOW Hgb 14.1 Gram/dL Hct 41.3 % MCV 93.9 fL MCH 32.0 pg MCHC 34.1 Gram/dL Platelet Count 297 K/uL MPV 11.1 fL RDW 12.3 % Neut % 92.3 % HI Neut # 18.36 K/uL HI Lymph % 3.9 % LOW Lymph # 0.78 K/uL LOW Scott % 3.3 % LOW Scott # 0.66 K/uL Eos % 0.0 % LOW Eos # 0.00 K/uL LOW Baso % 0.1 % Baso # 0.02 K/uL Slide Review No IG# 0 x10(3)/uL IG% 0 % . Condition: Stable. Impression and Plan Diagnosis Right renal mass - Admitting, Medical. Status post robotic assisted laparoscopic right partial nephrectomy - Admitting, Medical. Hyperlipemia - Discharge, Medical. At risk for sleep apnea - Discharge, Medical. Tobacco use disorder, continuous - Admitting, Medical. Acute kidney injury - Admitting, Medical. Course: Plan/ cont. current care, pt/ot, encourage oral fluid intake, nutritional support, encourage use of respirometer, motoring blood pressure, renal function, blood glucose, and urine output. Aggressive IV as well as oral hydration. Close monitoring H&H. Start Reglan 10 mg IV first dose then 10 mg p.o. AC and at bedtime. Ambulation. documented in this encounter Plan of Treatment Not on file documented as of this encounter Visit Diagnoses Not on filedocumented in this encounter
--- OUTSIDE RECORDS SUMMARY | 2025-04-14 17:05 | XMS_ITS | Encounter Summary ---
Author Organization [employer] ([place], [place], [place], [place]) Address [address] [place] [address] Care Team Providers Care Lawn Specialist Name Role Phone Unavailable Primary Care Provider Unavailabl e Encounter Details Date Type Department Care Team (Late st Contact Info) Description 04/14/2022 Transcribed Document [facility] [place] Family Medicine [facility] [place] [address] ProviderPrasad MD [address] [place] [id number] Social History Tobacco Use Types Packs/Day Years Used Date Smoking Tobacco: Never Assessed Sex and Gender Information Value Date Recorded Sex Assigned at Not on file Legal Sex Male 10:05 AM CDT Gender Identity Not on file Sexual Orientation Not on file documented as of this encounter Miscellaneous Notes * Cerner Conversion Note - Prasad ProviderMD - 04/14/2022 4:22 PM CDT Evaluation, Physical Therapy Entered On: 04/14/2022 17:45 EDT Performed On: 04/14/2022 17:22 EDT by JACQUELIN PETER, PT General Information, PT Visit Type, PT : Initial evaluation Patient Orders : Order Date Order Ordering 04/14/2022 16:23 PT Evaluation and Treatment Ordered By: CRISTY ROGEL MD-INT Active Diagnoses : 04/14/2022 12:00 Acquired absence of kidney 04/14/2022 12:00 Hyperlipidemia, unspecified 04/14/2022 12:00 Nicotine dependence, unspecified, with unspecified nicotine-induced disorders 04/14/2022 12:00 Other specified disorders of kidney and ureter 04/14/2022 12:00 Other specified personal risk factors, not elsewhere classified Therapy Diagnosis, PT : reduced mobility Admission Date : 04/14/2022 05:19 Assisted by, PT : Family Personal Devices : Personal Devices No Devices Recorded Assistive Devices : Assistive Devices No Devices Recorded JACQUELIN PETER, PT - 04/14/2022 17:39 EDT General Status Patient Received Status : Supine in bed Treatment Start Time : 04/14/2022 17:22 EDT Patient Left Status : Up in chair, RN/PCT informed, Family/Visitors at bedside, Communication board completed, All needs met and within reach RN/PCT Informed Comment : Yes, RN approved pt for PT eval and pt agreeable Treatment End Time : 04/14/2022 17:41 EDT Treatment Time : 19 Minute(s) Actual Treatment Time : 24 Minute(s) (Comment: Chart Review, collaboration with RN and clinical reasoning/decision making time required for completion of evaluation = ( 5 mins ) [JACQUELIN PETER, PT - 04/14/2022 17:39 EDT] ) JACQUELIN PETER, PT - 04/14/2022 17:39 EDT History and Environment Living Situation, Therapy : Home Patient Lives With : Spouse Persons Assisting Patient at Home : Spouse Professional Skilled Services : None Persons Providing Information : Patient, Spouse Home Equipment Therapy, PT : None Home Setup : Two story Stairs : Yes Stair Location(s) : Inside Inside Stairs, Number of Steps : 14 Railing Outside : Yes Outside Railing Position : Right, going up JACQUELIN PETER, PT - 04/14/2022 17:39 EDT Prior Level of Function PT GRID Prior LOF Ambulation, Household : Independent Prior LOF Ambulation, Community : Independent Prior LOF Bed Mobility : Independent Prior LOF Toileting : Independent Prior LOF Transfer : Independent JACQUELIN PETER, PT - 04/14/2022 17:39 EDT Upper Extremity Upper Extremity Dominance : Right Right UE Active ROM : WFL Right UE Strength : WFL Left UE Active ROM : WFL Left UE Strength : WFL JACQUELIN PETER, PT - 04/14/2022 17:39 EDT Lower Extremity RLE Active ROM : WFL Right LE Strength : WFL LLE Active ROM : WFL Left LE Strength : WFL JACQUELIN PETER, PT - 04/14/2022 17:39 EDT Functional Mobility Mobility Grid Bed Scooting : Supervision/set-up Supine to Sit : Supervision/set-up Sit to Stand : Supervision/set-up Bed to Chair : Supervision/set-up Stand to Sit : Supervision/set-up JACQUELIN PETER, PT - 04/14/2022 17:39 EDT Gait Training/Assessment, PT Weight Bearing Status : Full Gait Assistance Level : Supervision Walking Distance : 50 feet, supervision, Pt pushing IV pole, slow pace, good safety awareness Ambulatory Devices : Gait belt Gait Deviations : Yes Gait Training Comment : see above JACQUELIN PETER, PT - 04/14/2022 17:39 EDT Neuromuscular Reeducation, PT Balance Comment : good sitting and standing JACQUELIN PETER, PT - 04/14/2022 17:39 EDT Neurological/Sensory Overall Sensory Response : Intact Response to Pain : Intact JACQUELIN PETER, PT - 04/14/2022 17:39 EDT Activity Tolerance, PT Activity Comment : JACQUELIN Alexander, PT - 04/14/2022 17:39 EDT Cognition Assessment, PT Orientation : Oriented x 4 Attention Assessment : Present JACQUELIN PETER, PT - 04/14/2022 17:39 EDT Edu Topics Physical Therapy Education Grid Bed Mobility Training : Verbalizes understanding, Returns demonstration Gait Training : Verbalizes understanding, Returns demonstration Role of Physical Therapy : Verbalizes understanding, Returns demonstration Safety : Verbalizes understanding, Returns demonstration Transfer Training : Verbalizes understanding, Returns demonstration JACQUELIN PETER, PT - 04/14/2022 17:39 EDT Indication Assesessment, PT Physical Therapy Indicated : No Physical Therapy Not Indicated : Other: Pt does not require skilled PT services in the acute care setting beyond this initial evaluation and education Interdisciplinary Consultation(s) Needed : No Potential Barriers To Therapy : None evident Rehabilitation Potential : JACQUELIN Alexander, PT - 04/14/2022 17:39 EDT Plan of Care, PT PT Tx Plan/Goals Established w Patient : No Reason Tx/Plan Not Established W/ Pt PT : Pt does not require skilled PT services in the acute care setting beyond this initial evaluation and education PT Frequency Rehab : Other: eval only Other PT Treatment Provided This Date : ther act PT Duration Rehab : Other: eval only PT Treatments Planned : Other: eval only Plan of Care Comment, PT : eval only JACQUELIN PETER, PT - 04/14/2022 17:39 EDT Treatment Note Subjective Comment : agreeable Patient's Response to Treatment : good Additional Objective Information : see eval PT educated pt and spouse on the use of a pillow for abdominal splinting and on pursed lip breathing for pain control Assessment : Pt does not require skilled PT services in the acute care setting beyond this initial evaluation and education Plan for Treatment : eval only JACQUELIN PETER, PT - 04/14/2022 17:39 EDT Pain Assessment Pain Scaled Used : 0-10 Pain scale Pain Score Pre-Intervention : 4 Pain Score Post-Intervention. : 4 JACQUELIN PETER, PT - 04/14/2022 17:39 EDT Image 1 - Images currently included in the form version of this document have not been included in the text rendition version of the form. Anticipated Discharge Needs, OT/PT Anticipated Discharge to : Home, with family care JACQUELIN PETER, PT - 04/14/2022 17:39 EDT [place] PT Charges PT Ther Activities Ea 15 Min : 1 PT Eval Low Complexity : 1 JCAQUELIN PETER, PT - 04/14/2022 17:39 EDT Electronically signed by Allison, [facility] Conversion Shale Planer Operator Cerner at 01/05/2023 10:36 PM CDT documented in this encounter Plan of Treatment Not on file documented as of this encounter Visit Diagnoses Not on filedocumented in this encounter
--- OUTSIDE RECORDS SUMMARY | 2025-04-14 17:05 | XMS_ITS | Encounter Summary ---
Author Organization [employer] ([place], [place], [place], [place]) Address [address] [place] [address] Care Team Providers Care Health Insurance Sales Agent Name Role Phone Unavailable Primary Care Provider Unavailabl e Encounter Details Date Type Department Care Team (Late st Contact Info) Description 04/14/2022 Transcribed Document [facility] [place] Family Medicine [facility] [place] [address] ProviderPrasad MD [address] [place] [id number] Social History Tobacco Use Types Packs/Day Years Used Date Smoking Tobacco: Never Assessed Sex and Gender Information Value Date Recorded Sex Assigned at Not on file Legal Sex Male 10:05 AM CDT Gender Identity Not on file Sexual Orientation Not on file documented as of this encounter Miscellaneous Notes * Cerner Conversion Note - Prasad ProviderMD - 04/14/2022 12:11 PM CDT Peripheral Nerve Block Entered On: 04/14/2022 12:14 EDT Performed On: 04/14/2022 12:11 EDT by Brandy Sullivan RN Peripheral Nerve Block Verbally Confirm Pt, Site, and Procedure : Yes Brandy Sullivan RN - 04/14/2022 12:23 EDT Peripheral Nerve Block Start Date/Time : 04/14/2022 12:12 EDT Time Out Pause Time : 04/14/2022 12:11 EDT Site Marked and Visible : Yes Site Preparation : Chlorhexidine (Hibiclens) Peripheral Nerve Block : Tap Block Laterality : Right Peripheral Nerve Block Performed by : GE GONZALEZ MD Peripheral Nerve Block Performed by 2 : Rahul Conroy Non [facility] Student Nurse Supervisor Pre Wave Medication Delivery Method : Single Shot Peripheral Nerve Block Assisted by : Karely Gooden RN Peripheral Nerve Block Assisted by 2 : Brandy Sullivan RN Ultra sound used during insertion : Yes Nerve Block Activity, Patient Tolerance : Good Peripheral Nerve Block End Date/Time : 04/14/2022 12:14 EDT Brandy Sullivan RN - 04/14/2022 12:13 EDT documented in this encounter Plan of Treatment Not on file documented as of this encounter Visit Diagnoses Not on filedocumented in this encounter
--- OUTSIDE RECORDS SUMMARY | 2025-04-14 17:05 | XMS_ITS | Encounter Summary ---
Author Organization [employer] ([place], [place], [place], [place]) Address [address] [place] [address] Care Team Providers Care Operations Supervisor 2Nd Shift Name Role Phone Unavailable Primary Care Provider Unavailabl e Encounter Details Date Type Department Care Team (Late st Contact Info) Description 04/14/2022 Transcribed Document [facility] [place] Family Medicine [facility] [place] [address] ProviderPrasad MD [facility] [place] [address] Social History Tobacco Use Types Packs/Day Years Used Date Smoking Tobacco: Never Assessed Sex and Gender Information Value Date Recorded Sex Assigned at Not on file Legal Sex Male 10:05 AM CDT Gender Identity Not on file Sexual Orientation Not on file documented as of this encounter Miscellaneous Notes * Cerner Conversion Note - Historical ProviderMD - 04/14/2022 4:47 PM CDT Education-Wound Care Entered On: 04/14/2022 16:53 EDT Performed On: 04/14/2022 16:47 EDT by Gardenia Geiger Rn Flex I Teaching/Learning Assessment Barriers To Learning : None evident Gardenia Geiger Rn Flex I - 04/14/2022 16:52 EDT documented in this encounter Plan of Treatment Not on file documented as of this encounter Visit Diagnoses Not on filedocumented in this encounter
--- OUTSIDE RECORDS SUMMARY | 2025-04-14 17:05 | XMS_ITS | Encounter Summary ---
Author Organization [employer] ([place], [place], [place], [place]) Address [address] [place] [address] Care Team Providers Care Pricing Manager Name Role Phone Unavailable Primary Care Provider Unavailabl e Encounter Details Date Type Department Care Team (Late st Contact Info) Description 04/14/2022 Transcribed Document [facility] [place] Family Medicine [facility] [place] [address] ProviderPrasad MD [address] [place] [id number] Social History Tobacco Use Types Packs/Day [...] 04/14/2022 1:08 PM CDT [facility] Main OR IntraOp Summary Primary Physician: HELENA LUJAN JR, MD-URO Finalized Date/Time: 04/20/22 08:15:48 Pt. Name: BRYCE STOLL D.O.B./Sex: 1965 Male Med Rec #: [id number] Physician: HELENA LUJAN JR, MD-URO Financial #: [id number] Pt. Type: I Room/Bed: [facility]/ Admit/Disch: 04/16/22 15:05:00 - 04/16/22 20:20:00 [place] [facility] [place] [facility] [place] Case Attendance Entry 1 Entry 2 Entry 3 Case Attendee HELENA LUJAN JR, Holliday, Stewart R, RN JESSICA GABRIEL ST MD-URO Role Performed Surgeon/Proceduralist, Resource Room Teacher, First Scrub, First First Time In 04/14/22 12:43:00 04/14/22 12:43:00 04/14/22 12:43:00 Time Out 04/14/22 14:39:00 04/14/22 14:39:00 04/14/22 14:39:00 Procedure Nephrectomy Partial Nephrectomy Partial Nephrectomy Partial Robotic Robotic Robotic Other Attendee Superficial Wound Closed By: Last Modified By: Fran Okeefe, RN Fran Okeefe, RN Fran Okeefe, RN 04/14/22 14:43:11 04/14/22 14:43:11 04/14/22 14:43:11 Entry 4 Entry 5 Entry 6 Case Attendee MARY ANNE AQUINO ST OTHER, ATTENDEE JOO WADE, ELEVATOR REPAIRER HELPER Role Performed Scrub, Second Scrub, Third ELEVATOR REPAIRER HELPER/Nurse Spearer Time In 04/14/22 12:43:00 04/14/22 12:43:00 04/14/22 12:43:00 Time Out 04/14/22 14:39:00 04/14/22 14:39:00 04/14/22 14:39:00 Procedure Nephrectomy Partial Nephrectomy Partial Nephrectomy Partial Robotic Robotic Robotic Other Attendee Mary Wesley Superficial Wound Closed By: Last Modified By: Fran Okeefe, RN Fran Okeefe, RN Fran Okeefe, RN 04/14/22 14:43:11 04/14/22 14:43:11 04/14/22 14:43:11 Entry 7 Entry 8 Case Attendee MIKA BROWN PA-C LEININGER, SUSAN, RN Role Performed Physician construction project assistant Resource Room Teacher, Second Time In 04/14/22 13:23:00 04/14/22 13:36:00 Time Out 04/14/22 14:39:00 04/14/22 13:45:00 Procedure Nephrectomy Partial Nephrectomy Partial Robotic Robotic Other Attendee break Superficial Wound Closed By: Last Modified By: Fran Okeefe, RN Fran Okeefe, RN 04/14/22 14:43:11 04/14/22 14:43:11 [facility] IntraOp Case Attendance Audit 04/14/22 14:43:11 Care Clinician: RACQUEL Modifier: RACQUEL 1 <+> Time Out 1 <*> Procedure Nephrectomy Partial Robotic 2 <+> Time Out 2 <*> Procedure Nephrectomy Partial Robotic 3 <+> Time Out 3 <*> Procedure Nephrectomy Partial Robotic 4 <+> Time Out 4 <*> Procedure Nephrectomy Partial Robotic 5 <+> Time Out 5 <*> Procedure Nephrectomy Partial Robotic 6 <+> Time Out 6 <*> Procedure Nephrectomy Partial Robotic 7 <+> Time Out 7 <*> Procedure Nephrectomy Partial Robotic 8 <*> Procedure Nephrectomy Partial Robotic 04/14/22 13:54:45 Care Clinician: RACQUEL Modifier: DIANDRAR 8 <+> Time Out 8 <*> Procedure Nephrectomy Partial Robotic 04/14/22 13:40:49 Care Clinician: RACQUEL Modifier: DIANDRAR <+> 8 Case Attendee <+> 8 Role Performed <+> 8 Time In <+> 8 Procedure <+> 8 Other Attendee 04/14/22 13:23:24 Care Clinician: RACQUEL Modifier: RACQUEL 1 <+> Time In 1 <*> Procedure Nephrectomy Partial Robotic 2 <+> Time In 2 <*> Procedure Nephrectomy Partial Robotic 3 <+> Time In 3 <*> Procedure Nephrectomy Partial Robotic 4 <+> Time In 4 <*> Procedure Nephrectomy Partial Robotic 5 <+> Time In 5 <*> Procedure Nephrectomy Partial Robotic 6 <+> Time In 6 <*> Procedure Nephrectomy Partial Robotic <+> 7 Case Attendee <+> 7 Role Performed <+> 7 Time In <+> 7 Procedure 04/14/22 12:30:15 Care Clinician: RACQUEL Modifier: RACQUEL 1 <*> Procedure Nephrectomy Partial Robotic <+> 2 Case Attendee <+> 2 Role Performed <+> 2 Procedure <+> 3 Case Attendee <+> 3 Role Performed <+> 3 Procedure <+> 4 Case Attendee <+> 4 Role Performed <+> 4 Procedure <+> 5 Case Attendee <+> 5 Role Performed <+> 5 Procedure <+> 5 Other Attendee <+> 6 Case Attendee <+> 6 Role Performed <+> 6 Procedure [facility] IntraOp Case Times Entry 1 Patient In Room Time 04/14/22 12:43:00 Out Room Time 04/14/22 14:39:00 Anesthesia Start Time 04/14/22 12:43:00 Stop Time 04/14/22 14:39:00 Anesthesia Ready 04/14/22 12:43:00 Surgery / Procedure Times Start Time 04/14/22 13:08:00 Stop Time 04/14/22 14:32:00 Last Modified By: Fran Okeefe RN 04/14/22 14:43:10 [facility] IntraOp Case Times Audit 04/14/22 14:43:10 Care Clinician: DIANDRAR Modifier: HOLLIDSR <+> 1 Out Room Time <+> 1 Stop Time 04/14/22 14:35:24 Care Clinician: DIANDRAR Modifier: HOLLIDSR <+> 1 Stop Time 04/14/22 13:09:39 Care Clinician: DIANDRAR Modifier: HOLLIDSR <+> 1 Start Time [facility] IntraOp Cautery Entry 1 ESU Identification Cautery Type Monopolar ESU ID Number [id number] ID Type Hospital Number Cautery Settings Cut Setting 4 Coag Setting 4 Bipolar Setting 4 ESU Grounding Pad Ground Pad Type Adult Grounding Pad Fran Okeefe RN Applied By Grounding Pad Site Intact Skin Condition Before Cautery Grounding Pad Site Unchanged Skin Condition After Cautery Last Modified By: Fran Okeefe RN 04/14/22 12:31:09 [facility] IntraOp Communication Entry 1 Communication To Family/Significant other Comment procedure update Communication By Fran Okeefe, RN Last Modified By: Fran Okeefe RN 04/14/22 13:26:28 [facility] IntraOp Counts Verification Entry 1 Procedure Nephrectomy Partial Robotic Count Info Count Type Sponge, Sharps, Instrument, Miscellaneous Counts Verification Baseline/pre-procedure Sequence Counts Performed By Count Performed By JESSICA GABRIEL ST (Scrub) Count Performed By Fran Okeefe, RN (RN) Last Modified By: Fran Okeefe RN 04/14/22 12:30:59 [facility] IntraOp Counts Final Entry 1 Procedure Nephrectomy Partial Robotic Final Count Info Count Type Sponge, Sharps, Miscellaneous Counts Verification Skin Closure/end of Sequence procedure Count Results Correct, surgeon notified Counts Performed By Count Performed By MARY ANNE AQUINO ST (Scrub) Count Performed By Fran Okeefe, RN (RN) Last Modified By: Fran Okeefe RN 04/14/22 14:20:50 [facility] IntraOp Cultures and Spec Summary Entry 1 Cultrures and Specimens Specimen Ordered: Yes Test(s) Routine/Path-Lab Requested/Final Disposition Last Modified By: Fran Okeefe RN 04/14/22 12:30:33 [facility] IntraOp Departure from OR Entry 1 Integumentary Assessment Transfer/Handoff Transfer to PACU Phase I Handoff Method Bedside/Face to face Post-op Transport Stretcher/Gurney Via Patient Transport JOO WADE, Accompanied by Sary PATTERSON Stewart R, RN Last Modified By: Fran Okeefe RN 04/14/22 12:30:30 [facility] IntraOp Dressing and Packing Entry 1 Type Dressing Location ABDOMEN Wound Dressing Item Skin Closure Glue Last Modified By: Fran Okeefe RN 04/14/22 12:30:29 [facility] IntraOp Fire Risk Assessment Entry 1 Fire Info Surgical Site or 0- No Incision Above the Xyphoid Open O2 Source 0- No (Mask or Cannula) Available Ignition 1- Yes (ESU, Laser, Light Source) Fire Risk 1 Assessment Score Fire Score Fire Risk Yes Assessment Complete Fire Risk Fran Okeefe RN Assessment Verified By Fire Risk 04/14/22 12:30:00 Assessment Verified Date/Time Fire Risk Standard Fire Yes Safety Precautions Followed Last Modified By: Fran Okeefe RN 04/14/22 12:30:27 [facility] IntraOp General Case Electronic Science Teacher 1 Case Information OR OR 07 S[facility] Case Level 1 Room Verified Yes Wound Class 1 - Clean Specialty Urology Anesthesia Type General ASA Class 3 Diagnosis Preop Diagnosis right renal mass Postop Diagnosis refer to MD notes Wound Class Definitions Last Modified By: Fran Okeefe RN 04/14/22 12:31:23 [facility] IntraOp Implant Log Entry 1 Type Tissue Implant (Biologic) Implant Log Tissue Implant Type Tissue Implant BIODFENCE Identification [id number] Description Implant Quantity 1 Implant [id number] Identification Lot Number Implant IntegrTactical Awareness [employer]acon Systemsci Identification Lowerator Operator Name: Implant [id number] Identification Catalog Number Implant Has an Yes Expiration Date Implant Expiration 10/26/26 Date Tissue Implant Last Modified By: Fran Okeefe RN 04/14/22 13:26:14 [facility] IntraOp Intraoperative Assessment Entry 1 Handoff Method Bedside/Face to face Valid History / Yes Physical in Chart Preoperative Yes Checklist Reviewed/Evaluated Allergies Reviewed Yes Patient is Latex No Sensitive Isolation Not applicable Precautions Noted Skin Assessment Yes Verified Present Upon IVs Arrival to OR Last Modified By: Fran Okeefe RN 04/14/22 12:30:25 [facility] IntraOp Intraoperative Equipment Entry 1 Equipment Intraop Monitoring Electrocardiogram Three lead placement (ECG) Electrode Placement Blood Pressure Non-Invasive BP Device Source Blood Pressure Arm, right upper Location Pulse Oximeter Hand, left Probe Site Antiembolic Devices Antiembolic Devices Sequential compression device, knee high Antiembolic Device Bilateral Location Scopes Photo/Video Documentation Last Modified By: Fran Okeefe RN 04/14/22 12:30:51 [facility] IntraOp Medication Admin Entry 1 Entry 2 Medication/Irrigant KT TISSEEL FRZ 10ML Mannitol 25% 50 ml [id number] [employer] List Time Administered Route of Administration Dose Dose Unit of Measure Volume Administered By HELENA LUJAN JR, SLABAUGH JR, THOMAS, MD-URO -URO Procedure Irrigation Irrigant Volume In Irrigant Volume Out Last Modified By: Fran Okeefe RN Holliday, Stewart R, RN 04/14/22 13:11:04 04/14/22 13:56:05 [facility] IntraOp Medication Admin Audit 04/14/22 13:56:05 Care Clinician: RACQUEL Modifier: RACQUEL <+> 2 Medication/Irrigant <+> 2 Administered By [facility] IntraOp Patient Positioning Entry 1 Procedure Nephrectomy Partial Robotic Left Leg Position Uncrossed, parallel Right Leg Position Uncrossed, parallel Feet Uncrossed Yes Pressure Points Yes Checked Positioning Devices Arm Board, Pillows, Safety Strap, Leg(s) Positioned By Fran Okeefe, MISHA, JOO WADE CRNA, HELENA LUJAN JR, MD-URO Position Verified Positioning Yes Verified by Anesthesia Positioning Yes Verified by Surgeon Last Modified By: Fran Okeefe RN 04/14/22 12:30:23 [facility] IntraOp Sign In Entry 1 Patient, Site, Yes Procedure Identified Surgical Consent Yes Confirmed Relevant Surgical Yes Documents Available Surgical Site Yes Marked by person performing procedure Anesthesia Machine Yes Check Completed Medication Checks Yes Completed Airway Difficult No Airway/Aspiration Risk Difficult Yes Airway/Aspiration Intervention Equipment Available Blood Loss Risk Yes Blood Loss Yes Intervention Equipment Prepared and Ready Blood Identifiers Yes Verified Per Policy Hypothermia Risk Yes Warming Measures Yes Taken Last Modified By: Fran Okeefe RN 04/14/22 12:30:17 [facility] Intra Op Sign Out Entry 1 RN Confirmation Surgical Yes Procedure(s) Identified Instrument, Sponge Yes and Sharps Counts Correct/Documented Equipment Problems N/A Documented Specimen Labeled Yes Correctly Urinary Catheter Yes Documented in IView Wound Yes classification reviewed, verified and updated post case in both the General Case Data and Procedure segments Castelan Patient Yes Recovery Concerns Reviewed with Anesthesia Provider, Surgeon and RN Castelan Patient Yes Management Concerns Reviewed with Anesthesia Provider, Surgeon and RN Safety Checklist Yes Elements Complete? RN Sign Out Fran Okeefe, RN Signature RN Sign Out 04/14/22 14:43:00 Signature Date/Time Plan of Care Outcome - Fire Risk OUTCOME STATEMENT: Goal met Patient is free from injury related to surgical fire Plan of Care Outcome - Pt Positioning OUTCOME STATEMENT: Goal met Absence of signs and symptoms of positioning injury. Plan of Care Outcome - Skin Prep OUTCOME STATEMENT: Goal met Intraoperative care is consistent with measures to prevent infection Plan of Care Outcome - Xray/Images OUTCOME STATEMENT: Goal met Absence of observable signs or symptoms of radiation injury Plan of Care Outcome - Counts OUTCOME STATEMENT: Goal met Absence of signs and symptoms of injury related to extraneous objects Last Modified By: Fran Okeefe RN 04/14/22 14:43:22 [facility] Intra Op Sign Out Audit 04/14/22 14:43:22 Care Clinician: RACQUEL Modifier: RACQUEL <+> 1 RN Sign Out Signature Date/Time <+> 1 Wound classification reviewed, verified and updated post case in both the General Case Data and Procedure segments [facility] IntraOp Skin Prep Entry 1 Procedure Nephrectomy Partial Robotic Prescribed Yes Pre-Surgical Prep Completed Prep Area ABDOMEN Intraop Prep Prep Agents Chloraprep Prep by Fran Okeefe, RN Hair Removal Last Modified By: Fran Okeefe RN 04/14/22 12:30:19 [facility] IntraOp Surgical Procedures Entry 1 Procedure Nephrectomy Partial Robotic Additional (RIGHT) ROBOTIC PARTIAL Procedure NEPHRECTOMY Description Primary Procedure Yes Primary Surgeon HELENA LUJAN JR, MD-URO Start 04/14/22 13:08:00 Stop 04/14/22 14:32:00 Anesthesia Type General Specialty Urology Wound Class 1 - Clean Last Modified By: Fran Okeefe RN 04/14/22 14:35:24 [facility] IntraOp Surgical Procedures Audit 04/14/22 14:35:24 Care Clinician: RACQUEL Modifier: DIANDRAR <+> 1 Stop 04/14/22 13:23:31 Care Clinician: RACQUEL Modifier: RACQUEL 1 <*> Procedure Nephrectomy Partial Robotic 1 <+> Start 1 <+> Wound Class [facility] IntraOp Time Out Entry 1 Procedure to be Nephrectomy Partial Performed Robotic Time Out Time Out Pause Time 04/14/22 13:07:00 All activity Yes suspended (unless life threatening emergency) Team Verbally Correct patient Confirms Information identity, Correct side and site are marked, Consent form is present and accurate, Agreement on the procedure to be done, Correct patient position, Relevant images/results properly labeled/appropriately displayed, Confirm antibiotics have been administered, Confirm the skin prep has dried, Confirm prosthesis/implant/devic e is present, Performed in location of procedure after prepped/draped Antibiotic Yes Prophylaxis Administered Or In Progress Within the Last 60 Minutes Beta Love N/A Administered Venous Yes Thromboembolism Prophylaxis Required Anticipated Critical Events Surgeon None expected Anesthesia Provider None expected Nursing Assures Sterility of instruments Essential Imaging Yes Labeled and Displayed Last Modified By: Fran Okeefe RN 04/14/22 13:10:33 Case Comments <None> Finalized By: Fran Okeefe, RN Document Signatures Signed By: Fran Okeefe RN 04/14/22 14:43 Suzan Brown RN 04/15/22 09:03 Fran Okeefe RN 04/20/22 08:15 Unfinalized History Date/Time Username Reason for Unfinalizing Freetext Reason for Unfinalizing 04/15/22 09:03 ANGIE Correct Billing 04/20/22 08:15 RACQUEL Correct Billing Electronically signed by Allison [facility] Conversion Aqua Ammonia Operator Cerner at 01/05/2023 10:31 PM CDT documented in this encounter Plan of Treatment Not on file documented as of this encounter Visit Diagnoses Not on filedocumented in this encounter
--- OUTSIDE RECORDS SUMMARY | 2025-04-14 17:05 | XMS_ITS | Referral Summary ---
Author Organization [employer] ([place], [place], [place], [place]) Address [address] [place] [address] Care Team Providers Care Linux Network Systems Administrator Name Role Phone Unavailable Primary Care Provider [...]
--- OUTSIDE RECORDS SUMMARY | 2025-04-14 17:05 | XMS_ITS | Encounter Summary ---
Author Organization [employer] ([place], [place], [place], [place]) Address [address] [place] [address] Care Team Providers Care Lead Sustainability Specialist Name Role Phone Unavailable Primary Care Provider Unavailabl e Encounter Details Date Type Department Care Team (Late st Contact Info) Description 04/14/[address] [facility] [place] Medicine [facility] [place] [address] ProviderPrasad MD [address] [place] [address] Social History Tobacco Use Types Packs/Day [...] 04/14/2022 1:08 PM CDT [facility] Main OR PACU Summary Primary Physician: HELENA LUJAN JR, MD-URO Finalized Date/Time: 04/14/22 16:03:20 Pt. Name: KERWIN STOLL D.O.B./Sex: 1965 Male Med Rec #: [id number] Physician: HELENA LUJAN JR, MD-URO Financial #: [id number] Pt. Type: O Room/Bed: [facility]/4 Admit/Disch: 04/14/22 05:19:00 - Institution: [facility] Main OR PACU Case Times Entry 1 In PACU I 04/14/22 14:38:00 Ready for PACU 04/14/22 16:04:00 Discharge Discharge from PACU 04/14/22 16:04:00 I Last Modified By: SHANNAN RENNER 04/14/22 16:03:12 [facility] Main OR PACU Case Times Audit 04/14/22 16:03:12 Lean Manufacturing Specialist: VICKI Modifier: COLEMAM <+> 1 Ready for PACU Discharge <+> 1 Discharge from PACU I Finalized By: SHANNAN RENNER Document Signatures Signed By: SHANNAN RENNER 04/14/22 16:03 Electronically signed by Allison [facility] Conversion Plumber Cerner at 01/05/2023 10:54 PM CDT documented in this encounter Plan of Treatment Not on file documented as of this encounter Visit Diagnoses Not on filedocumented in this encounter
--- OUTSIDE RECORDS SUMMARY | 2025-04-14 17:05 | XMS_ITS | Encounter Summary ---
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 Phone Unavailable Primary Care Provider Unavailabl e Encounter Details Date Type Department Care Team (Late st Contact Info) Description 04/16/2022 Transcribed Document [facility] Family Medicine [facility] [place] [address] ProviderPrasad MD [address] [place] [address] Social History Tobacco Use Types Packs/Day Years Used Date Smoking Tobacco: Never Assessed Sex and Gender Information Value Date Recorded Sex Assigned at Not on file Legal Sex Male 10:05 AM CDT Gender Identity Not on file Sexual Orientation Not on file documented as of this encounter Miscellaneous Notes * Cerner Conversion Note - Prasad ProviderMD - 04/16/2022 7:53 PM CDT Patient Education Materials Follows: Acute Kidney Injury, Adult Acute kidney injury is a sudden worsening of kidney function. The kidneys are organs that have several jobs. They filter the blood to remove waste products and extra fluid. They also maintain a healthy balance of minerals and hormones in the body, which helps control blood pressure and keep bones strong. With this condition, your kidneys do not do their jobs as well as they should. This condition ranges from mild to severe. Over time, it may develop into long-lasting (chronic) kidney disease. Early detection and treatment may prevent acute kidney injury from developing into a chronic condition. What are the causes? Common causes of this condition include: ??? A problem with blood flow to the kidneys. This may be caused by: ? Low blood pressure (hypotension) or shock. ? Blood loss. ? Heart and blood vessel (cardiovascular) disease. ? Severe crowder. ? Liver disease. ??? Direct damage to the kidneys. This may be caused by: ? Certain medicines. ? A kidney infection. ? Poisoning. ? Being around or in contact with toxic substances. ? A surgical wound. ? A hard, direct hit to the kidney area. ??? A sudden blockage of urine flow. This may be caused by: ? Cancer. ? Kidney stones. ? An enlarged prostate in males. What increases the risk? You are more likely to develop this condition if you: ??? Are older than age 65. ??? Are female. ??? Are hospitalized, especially if you are in critical condition. ??? Have certain conditions, such as: ? Chronic kidney disease. ? Diabetes. ? Coronary artery disease and heart failure. ? Pulmonary disease. ? Chronic liver disease. What are the signs or symptoms? Symptoms of this condition may not be obvious until the condition becomes severe. Symptoms of this condition can include: ??? Tiredness (lethargy) or difficulty staying awake. ??? Nausea or vomiting. ??? Swelling (edema) of the face, legs, ankles, or feet. ??? Problems with urination, such as: ? Pain in the abdomen, or pain along the side of your stomach (flank). ? Producing little or no urine. ? Passing urine with a weak flow. ??? Muscle twitches and cramps, especially in the legs. ??? Confusion or trouble concentrating. ??? Loss of appetite. ??? Fever. How is this diagnosed? Your health care provider can diagnose this condition based on your symptoms, medical history, and a physical exam. You may also have other tests, such as: ??? Blood tests. ??? Urine tests. ??? Imaging tests. ??? A test in which a sample of tissue is removed from the kidneys to be examined under a microscope (kidney biopsy). How is this treated? Treatment for this condition depends on the cause and how severe the condition is. In mild cases, treatment may not be needed. The kidneys may heal on their own. In more severe cases, treatment will involve: ??? Treating the cause of the kidney injury. This may involve changing any medicines you are taking or adjusting your dosage. ??? Fluids. You may need specialized IV fluids to balance your body's needs. ??? Having a catheter placed to drain urine and prevent blockages. ??? Preventing problems from occurring. This may mean avoiding certain medicines or procedures that can cause further injury to the kidneys. In some cases, treatment may also require: ??? A procedure to remove toxic wastes from the body (dialysis or continuous renal replacement therapy, CRRT). ??? Surgery. This may be done to repair a torn kidney or to remove the blockage from the urinary system. Follow these instructions at home: Medicines ??? Take jngk-xtd-nqgfsuk and prescription medicines only as told by your health care provider. ??? Do not take any new medicines without your health care provider's approval. Many medicines can worsen your kidney damage. ??? Do not take any vitamin and mineral supplements without your health care provider's approval. Many nutritional supplements can worsen your kidney damage. Lifestyle ??? If your health care provider prescribed changes to your diet, follow them. You may need to decrease the amount of protein you eat. ??? Achieve and maintain a healthy weight. If you need help with this, ask your health care provider. ??? Start or continue an exercise plan. Try to exercise at least 30 minutes a day, 5 days a week. ??? Do not use any products that contain nicotine or tobacco, such as cigarettes, e-cigarettes, and chewing tobacco. If you need help quitting, ask your health care provider. General instructions ??? Keep track of your blood pressure. Report changes in your blood pressure as told by your health care provider. ??? Stay up to date with your vaccines. Ask your health care provider which vaccines you need. ??? Keep all follow-up visits as told by your health care provider. This is important. Where to find more information ??? [place] [employer]: www.aakp.org ??? National Kidney Foundation: www.kidney.org ??? [place] [employer]: www.akfinc.org ??? [employer] [facility]: ? www.lifeoptions.org ? www.kidneyschool.org Contact a health care provider if: ??? Your symptoms get worse. ??? You develop new symptoms. Get help right away if: ??? You develop symptoms of worsening kidney disease, which include: ? Headaches. ? Abnormally dark or light skin. ? Easy bruising. ? Frequent hiccups. ? Chest pain. ? Shortness of breath. ? End of menstruation in women. ? Seizures. ? Confusion or altered mental status. ? Abdominal or back pain. ? Itchiness. ??? You have a fever. ??? Your body is producing less urine. ??? You have pain or bleeding when you urinate. Summary ??? Acute kidney injury is a sudden worsening of kidney function. ??? Acute kidney injury can be caused by problems with blood flow to the kidneys, direct damage to the kidneys, and sudden blockage of urine flow. ??? Symptoms of this condition may not be obvious until it becomes severe. Symptoms may include edema, lethargy, confusion, nausea or vomiting, and problems passing urine. ??? This condition can be diagnosed with blood tests, urine tests, and imaging tests. Sometimes a kidney biopsy is done to diagnose this condition. ??? Treatment for this condition often involves treating the underlying cause. It is treated with fluids, medicines, diet changes, dialysis, or surgery. This information is not intended to replace advice given to you by your health care provider. Make sure you discuss any questions you have with your health care provider. Document Revised: 07/16/2020 Document Reviewed: 07/16/2020 [employer] Patient Education ? 2020 [employer]. Nephrology Minimally Invasive Nephrectomy Minimally invasive nephrectomy is a surgical procedure to remove a kidney. This procedure is done through several small incisions in the abdomen. You may have surgery to: ??? Remove the entire kidney and some surrounding structures (radical nephrectomy). ??? Remove only the damaged or diseased part of the kidney (partial nephrectomy). You may need this surgery if: ??? Your kidney is severely damaged from disease, infection, or cancer. ??? You were born with an abnormal kidney. ??? You are donating a healthy kidney. Tell a health care provider about: ??? Any allergies you have. ??? All medicines you are taking, including vitamins, herbs, eye drops, creams, and cedl-wkl-jhtyasb medicines. ??? Any problems you or family members have had with anesthetic medicines. ??? Any blood disorders you have. ??? Any surgeries you have had. ??? Any medical conditions you have. ??? Whether you are or may be . What are the risks? Generally, this is a safe procedure. However, problems may occur, including: ??? Bleeding. ??? Infection. ??? Damage to other body structures near the kidney. ??? Urine leaking into the abdomen. ??? Pneumonia. ??? A blood clot that forms in the leg and travels to the lung (pulmonary embolism). ??? Allergic reactions to medicines. A bone (usually part of a rib) or more tissue may need to be removed so the surgeon can get to the kidney. If this happens, the minimally invasive procedure may need to be changed to an open procedure. What happens before the procedure? Staying hydrated Follow instructions from your health care provider about hydration, which may include: ??? Up to 2 hours before the procedure ? you may continue to drink clear liquids, such as water, clear fruit juice, black coffee, and plain tea. Eating and drinking restrictions Follow instructions from your health care provider about eating and drinking, which may include: ??? 8 hours before the procedure ? stop eating heavy meals or foods, such as meat, fried foods, or fatty foods. ??? 6 hours before the procedure ? stop eating light meals or foods, such as toast or cereal. ??? 6 hours before the procedure ? stop drinking milk or drinks that contain milk. ??? 2 hours before the procedure ? stop drinking clear liquids. Medicines Ask your health care provider about: ??? Changing or stopping your regular medicines. This is especially important if you are taking diabetes medicines or blood thinners. ??? Taking medicines such as aspirin and ibuprofen. These medicines can thin your blood. Do not take these medicines unless your health care provider tells you to take them. ??? Taking lblm-tfs-ictmaxx medicines, vitamins, herbs, and supplements. Surgery safety Ask your health care provider: ??? How your surgery site will be marked. ??? What steps will be taken to help prevent infection. These steps may include: ? Removing hair at the surgery site. ? Washing skin with a germ-killing soap. ? Taking antibiotic medicine. General instructions ??? Do not use any products that contain nicotine or tobacco for at least 4 weeks before the procedure. These products include cigarettes, e-cigarettes, and chewing tobacco. If you need help quitting, ask your health care provider. ??? Your health care provider may instruct you to do breathing exercises before the procedure to help prevent pneumonia. Do these exercises as directed. ??? You may need to have your blood drawn (type and cross) in case you need to receive blood (get a transfusion) during the procedure. ??? Plan to have a responsible adult take you home from the hospital or clinic. ??? Plan to have a responsible adult care for you for the time you are told after you leave the hospital or clinic. This is important. What happens during the procedure? Before surgery begins ??? An IV will be inserted into one of your veins. ??? You will be given a medicine to make you fall asleep (general anesthetic). ??? Your health care provider may take steps to help blood flow in your legs. You may have: ? Tight stockings, also called compression stockings, on your legs. ? Compression sleeves wrapped around your legs. A machine called a sequential compression device (SCD) will pump air into the sleeves. ??? A small, thin tube will be placed in your bladder (urinary catheter) to drain urine. ??? A tube will be placed through your nose and into your stomach (nasogastric tube) to drain stomach fluids. During surgery ??? A small incision will be made in your abdomen to insert a thin, lighted tube (laparoscope) with a camera attached. This lets your surgeon see your kidney during the procedure. ??? More small incisions will be made to insert other surgical tools. One incision may be slightly larger to remove your kidney. ? In some cases, the surgeon will do the procedure by controlling tools that are attached to a surgical robot. This is called a robot-assisted nephrectomy. ??? The next steps depend on the type of procedure you are having. ? If you are having a partial nephrectomy: ? The blood vessels attached to your kidney will be clamped. ? Part of your kidney will be removed. The kidney will be closed with stitches (sutures), and the clamp on the blood vessels will be removed. ? If you are having a radical nephrectomy: ? All of the blood vessels that attach to your kidney will be closed and cut. ? Part of the tube that carries urine from your kidney to your bladder (ureter) will be removed. ? Your kidney will be removed. ??? All of the surgical tools will be removed from your body. ??? A small tube (drain) may be placed near one of the incisions to drain extra fluid from the surgery area. ??? The incisions may be closed with sutures or another type of closure. ??? A bandage (dressing) will be placed over the incision area. The procedure may vary among health care providers and hospitals. What happens after the procedure? Your blood pressure, heart rate, breathing rate, and blood oxygen level will be monitored until you leave the hospital or clinic. ??? Your nasogastric tube will be removed. ??? You may continue to have: ? An IV until you can drink fluids on your own. ? A urinary catheter. Your urine output will be checked. ? A drain. Your surgical drain will be removed after a few days. Your health care provider will tell you how to care for the drain at home. ? Pain medicine. This will be given through your IV. ? Compression stockings or compression sleeves.This helps to prevent blood clots and reduce swelling in your legs. ??? You will be encouraged to: ? Get out of bed and walk as soon as possible. ? Do breathing exercises, such as coughing and breathing deeply. This helps prevent pneumonia. Summary ??? Minimally invasive nephrectomy is a surgical procedure to remove a kidney. In some cases, only the damaged or diseased part of the kidney is removed. ??? This procedure is done through several small incisions in the abdomen. ??? Follow instructions from your health care provider about taking medicines and about eating and drinking before the procedure. ??? You will be given a medicine to make you fall asleep (general anesthetic) during the procedure. This information is not intended to replace advice given to you by your health care provider. Make sure you discuss any questions you have with your health care provider. Document Revised: 12/30/2020 Document Reviewed: 12/30/2020 [employer] Patient Education ? 2020 [employer]. Minimally Invasive Nephrectomy, Care After This sheet gives you information about how to care for yourself after your procedure. Your health care provider may also give you more specific instructions. If you have problems or questions, contact your health care provider. What can I expect after the procedure? After the procedure, it is common to have: ??? Pain. ??? Soreness and numbness in the area around your incisions. Follow these instructions at home: Medicines ??? Take cgdf-rjl-mnwujad and prescription medicines only as told by your health care provider. ??? Avoid using NSAIDs regularly over a long period of time. These include aspirin and ibuprofen. Doing so may damage your remaining kidney. ??? Ask your health care provider if the medicine prescribed to you: ? Requires you to avoid driving or using machinery. ? Can cause constipation. You may need to take these actions to prevent or treat constipation: ? Drink enough fluid to keep your urine pale yellow. ? Take vgsa-vsf-ingnqld or prescription medicines. ? Eat foods that are high in fiber, such as beans, whole grains, and fresh fruits and vegetables. ? Limit foods that are high in fat and processed sugars, such as fried or sweet foods. Incision care and drain care ??? Follow instructions from your health care provider about how to take care of your incisions. Make sure you: ? Wash your hands with soap and water for at least 20 seconds before and after you change your bandage (dressing). If soap and water are not available, use hand gallery assistant. ? Change your dressing as told by your health care provider. ? Leave stitches (sutures), skin glue, or adhesive strips in place. These skin closures may need to be in place for 2 weeks or longer. If adhesive strip edges start to loosen and curl up, you may trim the loose edges. Do not remove adhesive strips completely unless your health care provider tells you to do that. ??? Check your incision area every day for signs of infection. Check for: ? Redness, swelling, or more pain. ? Fluid or blood. ? Warmth. ? Pus or a bad smell. ??? If you have a drain in place, follow your health care provider's instructions for drain care. This may include emptying the drain and keeping track of the amount of drainage. Activity ??? Rest as told by your health care provider. ??? Avoid sitting for a long time without moving. Get up to take short walks every 1?2 hours. This is important to improve blood flow and breathing. Ask for help if you feel weak or unsteady. ??? Do not lift anything that is heavier than 10 lb (4.5 kg), or the limit that you are told, until your health care provider says that it is safe. ??? Do not play contact sports. Doing so may damage your remaining kidney. ??? Return to your normal activities as told by your health care provider. Ask your health care provider what activities are safe for you. Catheter care If you have a urinary catheter, care for it as told by your health care provider. You may be told to: ??? Wash your hands with soap and water for at least 20 seconds before and after touching the catheter, tubing, or drainage bag. If soap and water are not available, use hand gallery assistant. ??? Empty the drainage bag every 2?4 hours, or more often if needed. Do not let the bag get completely full. ??? Monitor the amount and color of your urine as told by your health care provider. ??? Keep the area around the catheter clean and dry. ??? Make sure to keep the catheter secured to avoid pulling and accidental removal. ??? Always keep the urine collection bag below the level of your bladder. ??? Check the catheter tubing regularly to make sure there are no kinks or blockages. ??? Make sure that the catheter is not placed under water. General instructions ??? Do not take baths, swim, or use a hot tub until your health care provider approves. Ask your health care provider if you may take showers. You may only be allowed to take sponge baths. ??? Do deep breathing exercises as told by your health care provider. These help to prevent lung infection (pneumonia). ??? Wear compression stockings as told by your health care provider. These stockings help to prevent blood clots and reduce swelling in your legs. ??? Keep all follow-up visits. This is important. Contact a health care provider if: ??? You have a fever or chills. ??? You have pain that is not controlled by your pain medicine. ??? You have redness, swelling, or more pain at an incision site. ??? You have a cough. ??? An incision is warm to the touch. ??? You have blood in your urine. ??? You have not had a bowel movement in 3 days. ??? You have diarrhea. Get help right away if: ??? You have trouble breathing or feel short of breath. ??? You have chest pain. ??? You have severe pain. ??? There is fluid or blood coming from an incision. ??? There is pus or a bad smell coming from an incision. ??? You cannot urinate. ??? You have warmth, redness, and tenderness in your leg. These symptoms may represent a serious problem that is an emergency. Do not wait to see if the symptoms will go away. Get medical help right away. Call your local emergency services (911 in the [place] Do not drive yourself to the hospital. Summary ??? Follow instructions from your health care provider about how to take care of your incisions. Check your incision area every day for signs of infection. ??? Take khlw-xmd-uwvdxif and prescription medicines only as told by your health care provider. ??? Return to your normal activities as told by your health care provider. Ask your health care provider what activities are safe for you. ??? Keep all follow-up visits. This is important. This information is not intended to replace advice given to you by your health care provider. Make sure you discuss any questions you have with your health care provider. Document Revised: 12/30/2020 Document Reviewed: 12/30/2020 [employer] Patient Education ? 2020 [employer]. Electronically signed by Wilder Cooper Conversion Timber Management Professor Sowmyaner at 01/05/2023 10:27 PM CDT documented in this encounter Plan of Treatment Not on file documented as of this encounter Visit Diagnoses Not on filedocumented in this encounter
--- OUTSIDE RECORDS SUMMARY | 2025-04-14 17:05 | XMS_ITS | Data Portability ---
Author Organization [facility]AN[facility] - JACKIE George [facility] Address [address] [place] [address] Care Team Providers Care Dental Chairside Assistant Name Role Phone ELLIS MOSQUEDA Primary Care Provider Assessment Encounter Date Assessment Date Assessment LastModified by Organization Details LastModified Time 11/06/2024 11/06/2024 59-year-old male with a history of renal cell carcinoma presenting with follow-up. Imaging shows no recurrence. Kidney and liver cysts are stable. Annual follow-up is advised. Cysts In Left Kidney And Liver: Cysts remain stable, requiring continued monitoring. No intervention needed currently. [email or web address] Not available 11/06/2024 09:55:08 Plan of Treatment Reminders Order Date Submit Date Provider Last Modified By Organization Details Last Modified Time Details Appointments None recorded. Lab urinalysis panel, auto 2023 024 [facility], [address], [place], [address], 4 14:03:26 urinalysis panel, auto 2022 023 [facility], [address], [address], [place], [address], 3 19:08:23 urinalysis panel, auto [address] [facility], [address] [place] [address] Rd, [address], [place], [address], 2 15:21:53 Referral None recorded. Procedures None recorded. Surgeries None recorded. Imaging XR, chest, 2 view 2024 025 [facility], [address] [place] [address], [phone], 5 17:23:01 CT, abdomen + pelvis, w/ contrast 2024 025 [facility], [address] [place] [address], [phone], 5 17:23:01 XR, chest, 2 view [address], [address] [place] [address], [address], 4 16:12:35 CT, abdomen + pelvis, w/ contrast [address], [address] [place] [address], [address], 4 16:12:36 CT, abdomen + pelvis, w/ contrast 2022 024 [facility], [address] [place] [address], [address], 4 09:58:57 US, scrotum - SCROTAL US 2021 022 [facility] ([facility]), [address], [place], [address], 2 15:15:47 XR, chest, 2 view [address], [address] [place] [address], [address], 2 17:13:38 CT, abdomen + pelvis, w/ contrast 2021 023 [facility], [address] [place], [address], 3 10:59:04 Medication Orders None recorded. Patient TargetsNo targets recorded. Patient Instructions Encounter Date Encounter Id Patient Instructions Last Modified By Organization Details Last Modified Time 05/08/2022 [id number] I reassured the patient he will likely not need adjuvant therapy. We'll plan for follow-up imaging in 6 months [email or web address] Not available 05/10/2022 07:57:13 08/28/2022 [id number] learning about healthy weight [email or web address] Not available 08/30/2022 15:21:53 11/06/2024 [id number] - Continue with yearly follow-up appointments for imaging as recommended. - Monitor for any symptoms or changes and report them as necessary. - Maintain regular check-ups and adhere to prescribed follow-up regimen. [email or web address] Not available 11/06/2024 09:55:10 Reason for Referral None Reported. Results Created Date Observation Date Name Description Value Unit Range Abnormal Flag Note LastModifiedBy Organization Detail LastModifiedTime 08/28/20 22 08/28/2022 urina lysis panel , auto Unknown Analyte Clean Catch Not Available [facility] [address], [place], [address], 08/28/2022 11:03:14 08/28/20 22 08/28/2022 urina lysis panel , auto Unknown Analyte Yellow Not Available [facility] [address], [place], [address], 08/28/2022 11:03:14 08/28/20 22 08/28/2022 urina lysis panel , auto Unknown Analyte Clear Not Available [facility] [place] [address], [place], [address], 08/28/2022 11:03:14 08/28/20 22 08/28/2022 urina lysis panel , auto Unknown Analyte 1.005 Not Available [facility] [address], [place], [address], 08/28/2022 11:03:14 08/28/20 22 08/28/2022 urina lysis panel , auto Unknown Analyte 1.003- 1.035 Not Available [facility] [address], [place], [address], 08/28/2022 11:03:14 08/28/20 22 08/28/2022 urina lysis panel , auto Unknown Analyte 7.0 Not Available [facility] [address], [place], [address], 08/28/2022 11:03:14 08/28/20 22 08/28/2022 urina lysis panel , auto Unknown Analyte 5.0-8. 0 Not Available [facility] [address], [place], [address], 08/28/2022 11:03:14 08/28/20 22 08/28/2022 urina lysis panel , auto Unknown Analyte Negati ve Not Available [facility] [address], [place], [address], 08/28/2022 11:03:14 08/28/20 22 08/28/2022 urina lysis panel , auto Unknown Analyte Negati ve Not Available [facility] [address], [place], [address], 08/28/2022 11:03:14 08/28/20 22 08/28/2022 urina lysis panel , auto Unknown Analyte Negati ve Not Available [facility] [address], [place], [address], 08/28/2022 11:03:14 08/28/20 22 08/28/2022 urina lysis panel , auto Unknown Analyte Negati ve Not Available [facility] [address], [place], [address], 08/28/2022 11:03:14 08/28/20 22 08/28/2022 urina lysis panel , auto Unknown Analyte Negati ve Not Available [facility] [address], [place], [address], 08/28/2022 11:03:14 08/28/20 22 08/28/2022 urina lysis panel , auto Unknown Analyte Negati ve Not Available [facility] [address], [place], [address], 08/28/2022 11:03:14 08/28/20 22 08/28/2022 urina lysis panel , auto Unknown Analyte Normal Not Available [facility] [address], [place], [address], 08/28/2022 11:03:14 08/28/20 22 08/28/2022 urina lysis panel , auto Unknown Analyte Normal Not Available [facility] [address], [place], [address], 08/28/2022 11:03:14 08/28/20 22 08/28/2022 urina lysis panel , auto Unknown Analyte Negati ve Not Available [facility] [address], [place], [address], 08/28/2022 11:03:14 08/28/20 22 08/28/2022 urina lysis panel , auto Unknown Analyte Negati ve Not Available [facility] [address], [place], [address], 08/28/2022 11:03:14 08/28/20 22 08/28/2022 urina lysis panel , auto Unknown Analyte Normal Not Available [facility] [address], [place], [address], 08/28/2022 11:03:14 08/28/20 22 08/28/2022 urina lysis panel , auto Unknown Analyte Normal 1 mg/dl Not Available [facility] [address], [place], [address], 08/28/2022 11:03:14 08/28/20 22 08/28/2022 urina lysis panel , auto Unknown Analyte Negati ve Not Available [facility] [address], [place], [address], 08/28/2022 11:03:14 08/28/20 22 08/28/2022 urina lysis panel , auto Unknown Analyte Negati ve Not Available [facility] [address], [place], [address], 08/28/2022 11:03:14 08/28/20 22 08/28/2022 urina lysis panel , auto Unknown Analyte Negati ve Not Available [facility] [address], [place], [address], 08/28/2022 11:03:14 08/28/20 22 08/28/2022 urina lysis panel , auto Unknown Analyte Negati ve Not Available [facility] [address], [place], [address], 08/28/2022 11:03:14 11/12/19 23 11/12/2022 urina lysis panel , auto Unknown Analyte Clean Catch Not Available [facility] [address], [place], [address], 11/12/2022 10:53:17 11/12/19 23 11/12/2022 urina lysis panel , auto Unknown Analyte Yellow Not Available [facility] [address], [place], [address], 11/12/2022 10:53:17 11/12/19 23 11/12/2022 urina lysis panel , auto Unknown Analyte Clear Not Available [facility] [address], [place], [address], 11/12/2022 10:53:17 11/12/19 23 11/12/2022 urina lysis panel , auto Unknown Analyte 1.010 Not Available [facility] [address], [place], [address], 11/12/2022 10:53:17 11/12/19 23 11/12/2022 urina lysis panel , auto Unknown Analyte 1.003- 1.035 Not Available [facility] [address], [place], [address], 11/12/2022 10:53:17 11/12/19 23 11/12/2022 urina lysis panel , auto Unknown Analyte 8.0 Not Available [facility] [address], [place], [address], 11/12/2022 10:53:17 11/12/19 23 11/12/2022 urina lysis panel , auto Unknown Analyte 5.0-8. 0 Not Available [facility] [address], [place], [address], 11/12/2022 10:53:17 11/12/19 23 11/12/2022 urina lysis panel , auto Unknown Analyte Negati ve Not Available [facility] [address], [place], [address], 11/12/2022 10:53:17 11/12/19 23 11/12/2022 urina lysis panel , auto Unknown Analyte Negati ve Not Available [facility] [address], [place], [address], 11/12/2022 10:53:17 11/12/19 23 11/12/2022 urina lysis panel , auto Unknown Analyte Negati ve Not Available [facility] [address], [place], [address], 11/12/2022 10:53:17 11/12/19 23 11/12/2022 urina lysis panel , auto Unknown Analyte Negati ve Not Available [facility] [address], [place], [address], 11/12/2022 10:53:17 11/12/19 23 11/12/2022 urina lysis panel , auto Unknown Analyte Negati ve Not Available [facility] [address], [place], [address], 11/12/2022 10:53:17 11/12/19 23 11/12/2022 urina lysis panel , auto Unknown Analyte Negati ve Not Available [facility] [address], [place], [address], 11/12/2022 10:53:17 11/12/19 23 11/12/2022 urina lysis panel , auto Unknown Analyte Normal Not Available [facility] [address], [place], [address], 11/12/2022 10:53:17 11/12/19 23 11/12/2022 urina lysis panel , auto Unknown Analyte Normal Not Available [facility] [address], [place], [address], 11/12/2022 10:53:17 11/12/1911/12/2022 urina lysis panel , auto Unknown Analyte Negati ve Not Available [facility] [address], [place], [address], 11/12/2022 10:53:17 11/12/1912 1111/12/2022 urina lysis panel , auto Unknown Analyte Negati ve Not Available [facility] [address], [place], [address], 11/12/2022 10:53:17 11/12/19 23 11/12/2022 urina lysis panel , auto Unknown Analyte Normal Not Available [facility] [address], [place], [address], 11/12/2022 10:53:17 11/12/1911/12/2022 urina lysis panel , auto Unknown Analyte Normal 1 mg/dl Not Available [facility] [address], [place], [address], 11/12/2022 10:53:17 11/12/19 23 11/12/2022 urina lysis panel , auto Unknown Analyte Negati ve Not Available [facility] [address], [place], [address], 11/12/2022 10:53:17 11/12/19 23 11/12/2022 urina lysis panel , auto Unknown Analyte Negati ve Not Available [facility] [address], [place], [address], 11/12/2022 10:53:17 11/12/1911/12/2022 urina lysis panel , auto Unknown Analyte Negati ve Not Available [facility] [address], [place], [address], 11/12/2022 10:53:17 11/12/19 23 11/12/2022 urina lysis panel , auto Unknown Analyte Negati ve Not Available [facility] [address], [place], [address], 11/12/2022 10:53:17 11/18/19 24 11/18/2023 urina lysis panel , auto Unknown Analyte Clean Catch Not Available [facility] [address], [place], [address], 11/18/2023 12:07:57 11/18/1911/18/2023 urina lysis panel , auto Unknown Analyte Yellow Not Available [facility] [address], [place], [address], 11/18/2023 12:07:57 11/18/19 24 11/18/2023 urina lysis panel , auto Unknown Analyte Clear Not Available [facility] [address], [place], [address], 11/18/2023 12:07:57 11/18/19 24 11/18/2023 urina lysis panel , auto Unknown Analyte 1.000 Not Available [facility] [address], [place], [address], 11/18/2023 12:07:57 11/18/19 24 11/18/2023 urina lysis panel , auto Unknown Analyte 1.003- 1.035 Not Available [facility] [address], [place], [address], 11/18/2023 12:07:57 11/18/19 24 11/18/2023 urina lysis panel , auto Unknown Analyte 7.0 Not Available [facility] [address], [place], [address], 11/18/2023 12:07:57 11/18/19 24 11/18/2023 urina lysis panel , auto Unknown Analyte 5.0-8. 0 Not Available [facility] [address], [place], [address], 11/18/2023 12:07:57 11/18/19 24 11/18/2023 urina lysis panel , auto Unknown Analyte Negati ve Not Available [facility] [address], [place], [address], 11/18/2023 12:07:57 11/18/19 24 11/18/2023 urina lysis panel , auto Unknown Analyte Negati ve Not Available [facility] [address], [place], [address], 11/18/2023 12:07:57 11/18/19 24 11/18/2023 urina lysis panel , auto Unknown Analyte Negati ve Not Available [facility] [address], [place], [address], 11/18/2023 12:07:57 11/18/19 24 11/18/2023 urina lysis panel , auto Unknown Analyte Negati ve Not Available [facility] [address], [place], [address], 11/18/2023 12:07:57 11/18/19 24 11/18/2023 urina lysis panel , auto Unknown Analyte Negati ve Not Available [facility] [address], [place], [address], 11/18/2023 12:07:57 11/18/19 24 11/18/2023 urina lysis panel , auto Unknown Analyte Negati ve Not Available [facility] [address], [place], [address], 11/18/2023 12:07:57 11/18/19 24 11/18/2023 urina lysis panel , auto Unknown Analyte Normal Not Available [facility] [address], [place], [address], 11/18/2023 12:07:57 11/18/19 24 11/18/2023 urina lysis panel , auto Unknown Analyte Normal Not Available [facility] [address], [place], [address], 11/18/2023 12:07:57 11/18/19 24 11/18/2023 urina lysis panel , auto Unknown Analyte Negati ve Not Available [facility] [address], [place], [address], 11/18/2023 12:07:57 11/18/19 24 11/18/2023 urina lysis panel , auto Unknown Analyte Negati ve Not Available [facility] [address], [place], [address], 11/18/2023 12:07:57 11/18/19 24 11/18/2023 urina lysis panel , auto Unknown Analyte Normal Not Available [facility] [address], [place], [address], 11/18/2023 12:07:57 11/18/19 24 11/18/2023 urina lysis panel , auto Unknown Analyte Normal 1 mg/dl Not Available [facility] [address], [place], [address], 11/18/2023 12:07:57 11/18/19 24 11/18/2023 urina lysis panel , auto Unknown Analyte Negati ve Not Available [facility] [address], [place], [address], 11/18/2023 12:07:57 11/18/19 24 11/18/2023 urina lysis panel , auto Unknown Analyte Negati ve Not Available [facility] [address], [place], [address], 11/18/2023 12:07:57 11/18/19 24 11/18/2023 urina lysis panel , auto Unknown Analyte Negati ve Not Available [facility] [address], [place], [address], 11/18/2023 12:07:57 11/18/19 24 11/18/2023 urina lysis panel , auto Unknown Analyte Negati ve Not Available [facility] [address], [place], [address], 11/18/2023 12:07:57 09/01/20 22 09/01/2022 US, scrot um No observ ation record ed. [email or web address] [facility] [address], [place], [address], 10/18/2022 15:49:58 11/12/19 23 11/12/2022 CT, abdom en + pelvi s, w/ contr ast [facility] [facility] [address] [facility] [place] [address] Patien t Name: SADIE martin : [id number] Paticamron t 01 Orderi ng Provid er: HELENA MOTLEY EXAM DATE: 2022 EXAM: CT A/P WITH CONTRA [facility]IN[facility] AL INFORM ATION: Histor y of renal cancer . Partia l nephre ctomy. TECHNI QUE: No POC testin g for eGFR was perfor med due to absenc e of risk factor s. Multip le axial CT images of the abdome n and pelvis were obtain ed after inject ion of 100 mL Omnipa que 350 (1 x 100 mL bottle of [facility] [address]- 1414-9 1). None was wasted and discar ded. Bowel was opacif ied with oral contra st. COMPAR TAD: None FINDIN GS ON CT ABDOME N: LOWER THORAX : Calcif ied granul omata are seen in both lungs. No obviou s cardia c abnorm ality. KIDNEY S: Deform ity of the right kidney is likely . No eviden ce of local recurr ence is seen. There are 0.5-1. 2 cm simple cysts in both kidney s. Duplex collec ting system is seen on the left. No obstru ction is seen on either side. UPPER ABDOMI NAL ORGANS : Liver, gallbl adder, spleen , pancre as, adrena ls are normal . BOWEL AND MESENT TIANA: Stomac h, small bowel and colon are normal . No mesent dillon lympha denopa thy or perito ajay free fluid. RETROP ERITON EUM: Aorta, IVC and their branch es are patent and normal . No retrop eriton eal lympha denopa thy. BODY WALL AND MUSCUL OSKELE NAN STRUCT URES: Degene rative change s of the lumbar spine are noted. Small umbili shawanda hernia contai mouna omenta l fat. That fibroi d is FINDIN GS ON CT PELVIS : PELVIC CAVITY : Urinar y bladde r and rectos igmoid are normal . No pelvic or inguin al lympha denopa thy, mass or fluid. MUSCUL OSKELE NAN STRUCT URES: Normal . COMBIN ED IMPRES SHAJI: 1. No CT eviden ce of neopla stic recurr ence in the lower chest, abdome n or pelvis . 2. Small umbili shawanda hernia contai mouna omenta l fat. Interp reted By: Jaison Mejia MD Electr onical ly Signed By: Jaison Mejia MD on 023 10:54 AM [facility] [address], [address], 11/13/2022 08:55:11 11/18/19 24 11/18/2023 CT, abdom en + pelvi s, w/ contr ast [address] [facility] [place] [address] Paticamron martin Name: SADIE martin : [id number] Patien t 01 Orderi ng Provid er: HELENA MOTLEY EXAM DATE: 2023 EXAM: CT A/P WITH CONTRA ST CLINIC AL INFORM ATION: Treatm ent for right renal cancer March 2022. TECHNI QUE: No POC testin g for eGFR was perfor med due to absenc e of risk factor s. Multip le axial CT images of the abdome n and pelvis were obtain ed after inject ion of 100 mL Omnipa que 350 (1 x 100 mL bottle of [facility] [address]- 1414-9 1). None was wasted and discar ded. Bowel was marked with water. COMPAR TAD: No previo us images are availa ble for compar tad. FINDIN GS ON CT ABDOME N: LOWER THORAX : Lungs are clear. No gross cardia c abnorm ality. UPPER ABDOMI NAL ORGANS : Multip le 1 cm simple cysts are seen in the liver. Gallbl adder, spleen , pancre as, both adrena ls are normal . Right renal deform ity is seen from previo us partia l nephre ctomy. No focal lesion is seen at the operat kate site. 1 cm simple cysts are seen in both kidney s. 2 mm stone in the left kidney . BOWEL AND MESENT TIANA: Stomac h, small bowel and colon are normal . No mesent dillon lympha denopa thy or perito ajay free fluid. RETROP ERITON EUM: Abdomi nal aorta shows athero sclero tic calcif icatio ns with normal calibe r. IVC is normal . No retrop eriton eal lympha denopa thy. ABDOMI NAL WALL AND SKELET AL STRUCT URES: Degene rative change s are seen in the lumbar spine. Abdomi nal wall shows an umbili shawanda hernia contai mouna omenta l fat. FINDIN GS ON CT PELVIS : PELVIC CAVITY : Sigmoi d divert iculos is is seen withou t divert iculit is. Prosta te gland is normal in size. No pelvic or inguin al lympha denopa thy, mass or fluid. MUSCUL OSKELE NAN STRUCT URES: Normal . IMPRES SHAJI: 1. No eviden ce of neopla stic recurr ence in the lower chest, abdome n or pelvis . 2. Bilate ral simple renal cysts. 3. Tiny nonobs tructi ng stone in the left kidney . 4. Simple hepati c cysts. Interp reted By: Jaison Mejia MD Electr onical ly Signed By: Jaison Mejia MD on 024 9:53 AM [facility] Radiology [address], [phone], 11/22/2023 15:13:53 11/06/19 25 11/06/2024 XR, chest , [address] [address] Patien t Name: SADIE Castaneda t : 967 [address] t 01 Orderi ng Provid er: HELENA MOTLEY EXAM DATE: 2024 EXAM: XR CHEST PA/LAT CLINIC AL INFORM ATION: Kidney cancer IMAGES PROVID ED: PA and latera l views of the chest. COMPAR TAD: None. FINDIN GS: Heart size is within normal limits . Lung zuñiga are clear. No metast atic diseas e noted IMPRES SHAJI: No acute cardio pulmon [place] change s. Interp reted By: Souleymane Allen MD Electr onical ly Signed By: Souleymane Allen MD on 025 8:35 AM [facility] Radiology [facility] [address] [place] [address], [phone], 11/06/2024 09:14:36 11/06/19 25 11/06/2024 CT, abdom en + pelvi s, w/ contr ast [place] [id number] [facility] [place] [address] Patien t Name: SADIE SCHULTZ Patien t : 967 Patien t 01 Orderi ng Provid er: HELENA MOTLEY EXAM DATE: 2024 EXAM: CT A/P WITH CONTRA ST CLINIC AL INFORM ATION: Kidney cancer TECHNI QUE: No POC testin g for eGFR was perfor med due to absenc e of risk factor s. Multip le axial CT images of the abdome n and pelvis were obtain ed after inject ion of 100 mL Omnipa que 350 (1 x 100 mL bottle of [facility] [id number] 1). None was wasted and discar ded. No oral contra st or water was admini stered to the patien t. COMPAR TAD: [address] ABDOME N: LOWER THORAX : Lung bases are clear. No obviou s cardia c abnorm ality. UPPER ABDOMI NAL ORGANS : Multip le subcen timete r benign cysts are presen t in the liver as before . The kidney s show no eviden ce of hydron ephros is. There is a simple cyst involv ing the left kidney . The right kidney has eviden ce of previo us partia l nephre ctomy. There is some scarri ng and fat necros is at the site which is stable . Previo usly seen left renal stone is no longer presen t. Bilate ral dual renal collec ting system s are noted. BOWEL AND MESENT TIANA: Stomac h, small bowel and colon are normal . No mesent dillon lympha denopa thy or perito ajay free fluid. RETROP ERITON EUM: Aorta, IVC and their branch es are patent and normal . No retrop eriton eal lympha denopa thy. ABDOMI NAL WALL AND SKELET AL STRUCT URES: Normal . FINDIN GS ON CT PELVIS : PELVIC CAVITY : Urinar y bladde r and rectos igmoid are normal . No pelvic or inguin al lympha denopa thy, mass or fluid. MUSCUL OSKELE NAN STRUCT URES: Normal . COMBIN ED IMPRES SHAJI: 1. Previo us right partia l nephre ctomy. Stable appear ance with no indica tion of neopla stic recurr ence 2. Simple cyst left kidney 3. Multip le benign subcen timete r hepati c cysts Interp reted By: Souleymane Allen MD Electr onical ly Signed By: Souleymane Allen MD on 025 8:45 AM [facility] Radiology [address], [phone], 11/06/2024 09:14:35 Result Notes Documentation Provider Name and Address Organization Details Recorded Time Ct, Abdomen + Pelvis, W/ Contrast : [address] [address] Patient Name: BRYCE SCHULTZ Patient : 1965 Patient Ordering Provider: HELENA LUAJN JR EXAM DATE: 11/12/2022 EXAM: CT A/P WITH CONTRAST CLINICAL INFORMATION: History of renal cancer. Partial nephrectomy. TECHNIQUE: No POC testing for eGFR was performed due to absence of risk factors. Multiple axial CT images of the abdomen and pelvis were obtained after injection of 100 mL Omnipaque 350 (1 x 100 mL bottle of [facility] [id number]). None was wasted and discarded. Bowel was opacified with oral contrast. COMPARISON: None FINDINGS ON CT ABDOMEN: LOWER THORAX: Calcified granulomata are seen in both lungs. No obvious cardiac abnormality. KIDNEYS: Deformity of the right kidney is likely. No evidence of local recurrence is seen. There are 0.5-1.2 cm simple cysts in both kidneys. Duplex collecting system is seen on the left. No obstruction is seen on either side. UPPER ABDOMINAL ORGANS: Liver, gallbladder, spleen, pancreas, adrenals are normal. BOWEL AND MESENTERY: Stomach, small bowel and colon are normal. No mesenteric lymphadenopathy or peritoneal free fluid. RETROPERITONEUM: Aorta, IVC and their branches are patent and normal. No retroperitoneal lymphadenopathy. BODY WALL AND MUSCULOSKELETAL STRUCTURES: Degenerative changes of the lumbar spine are noted. Small umbilical hernia containing omental fat. That fibroid is FINDINGS ON CT PELVIS: PELVIC CAVITY: Urinary bladder and rectosigmoid are normal. No pelvic or inguinal lymphadenopathy, mass or fluid. MUSCULOSKELETAL STRUCTURES: Normal. COMBINED IMPRESSION: 1. No CT evidence of neoplastic recurrence in the lower chest, abdomen or pelvis. 2. Small umbilical hernia containing omental fat. Interpreted By: Jese Mejia MD NA LUJAN JR, MD [address] [place] [address], [phone] [place] [address] 11/12/2022 12:09:17 Ct, Abdomen + Pelvis, W/ Contrast : [address] [address] Patient Name: BRYCE SCHULTZ Patient : 1965 Patient Ordering Provider: HELENA LUJAN JR EXAM DATE: 11/18/2023 EXAM: CT A/P WITH CONTRAST CLINICAL INFORMATION: Treatment for right renal cancer March 2022. TECHNIQUE: No POC testing for eGFR was performed due to absence of risk factors. Multiple axial CT images of the abdomen and pelvis were obtained after injection of 100 mL Omnipaque 350 (1 x 100 mL bottle of [facility] [id number]). None was wasted and discarded. Bowel was marked with water. COMPARISON: No previous images are available for comparison. FINDINGS ON CT ABDOMEN: LOWER THORAX: Lungs are clear. No gross cardiac abnormality. UPPER ABDOMINAL ORGANS: Multiple 1 cm simple cysts are seen in the liver. Gallbladder, spleen, pancreas, both adrenals are normal. Right renal deformity is seen from previous partial nephrectomy. No focal lesion is seen at the operative site. 1 cm simple cysts are seen in both kidneys. 2 mm stone in the left kidney. BOWEL AND MESENTERY: Stomach, small bowel and colon are normal. No mesenteric lymphadenopathy or peritoneal free fluid. RETROPERITONEUM: Abdominal aorta shows atherosclerotic calcifications with normal caliber. IVC is normal. No retroperitoneal lymphadenopathy. ABDOMINAL WALL AND SKELETAL STRUCTURES: Degenerative changes are seen in the lumbar spine. Abdominal wall shows an umbilical hernia containing omental fat. FINDINGS ON CT PELVIS: PELVIC CAVITY: Sigmoid diverticulosis is seen without diverticulitis. Prostate gland is normal in size. No pelvic or inguinal lymphadenopathy, mass or fluid. MUSCULOSKELETAL STRUCTURES: Normal. IMPRESSION: 1. No evidence of neoplastic recurrence in the lower chest, abdomen or pelvis. 2. Bilateral simple renal cysts. 3. Tiny nonobstructing stone in the left kidney. 4. Simple hepatic cysts. Interpreted By: Jese Mejia MD NA LUJAN JR, MD [address] [place] [address], [phone], [facility] 11/21/2023 14:02:00 Xr, Chest, 2 View : [address] [address] Patient Name: BRYCE SCHULTZ Patient : 1965 Patient Ordering Provider: HELENA LUJAN JR EXAM DATE: 11/06/2024 EXAM: XR CHEST PA/LAT CLINICAL INFORMATION: Kidney cancer IMAGES PROVIDED: PA and lateral views of the chest. COMPARISON: None. FINDINGS: Heart size is within normal limits. Lung zuñiga are clear. No metastatic disease noted IMPRESSION: No acute cardiopulmonary changes. Interpreted By: Souleymane Allen MD NA LUJAN JR, MD [address] [place] [address], [phone], [facility] 11/06/2024 09:14:36 Ct, Abdomen + Pelvis, W/ Contrast : [address] [address] Patient Name: BRYCE SCHULTZ Patient : 1965 Patient Ordering Provider: HELENA LUJAN JR EXAM DATE: 11/06/2024 EXAM: CT A/P WITH CONTRAST CLINICAL INFORMATION: Kidney cancer TECHNIQUE: No POC testing for eGFR was performed due to absence of risk factors. Multiple axial CT images of the abdomen and pelvis were obtained after injection of 100 mL Omnipaque 350 (1 x 100 mL bottle of [facility] [id number]). None was wasted and discarded. No oral contrast or water was administered to the patient. COMPARISON: 11/18/[address] ABDOMEN: LOWER THORAX: Lung bases are clear. No obvious cardiac abnormality. UPPER ABDOMINAL ORGANS: Multiple subcentimeter benign cysts are present in the liver as before. The kidneys show no evidence of hydronephrosis. There is a simple cyst involving the left kidney. The right kidney has evidence of previous partial nephrectomy. There is some scarring and fat necrosis at the site which is stable. Previously seen left renal stone is no longer present. Bilateral dual renal collecting systems are noted. BOWEL AND MESENTERY: Stomach, small bowel and colon are normal. No mesenteric lymphadenopathy or peritoneal free fluid. RETROPERITONEUM: Aorta, IVC and their branches are patent and normal. No retroperitoneal lymphadenopathy. ABDOMINAL WALL AND SKELETAL STRUCTURES: Normal. FINDINGS ON CT PELVIS: PELVIC CAVITY: Urinary bladder and rectosigmoid are normal. No pelvic or inguinal lymphadenopathy, mass or fluid. MUSCULOSKELETAL STRUCTURES: Normal. COMBINED IMPRESSION: 1. Previous right partial nephrectomy. Stable appearance with no indication of neoplastic recurrence 2. Simple cyst left kidney 3. Multiple benign subcentimeter hepatic cysts Interpreted By: Souleymane Allen MD NA LUJAN JR, MD [address] [place] [address], [phone], [facility] 11/06/2024 09:14:35 Problems Name Problem SNOMED Code Status Onset Date Resolution Date Notes Provider Name and Address Organization Details Recorded Time Renal cell carcinoma 394326897 Active 025 HELENA LUJAN JR, MD [address] [place] [address], [phone], [facility] 5 17:22:42 Problem Notes None recorded. Procedures Surgical History Date Name Laterality Status Provider Name and Address Organization Details Recorded Time 2 PARTIAL NEPHRECTOMY, ROBOT ASSISTED LAPAROSCOPIC, WITH INTRA-OPERATIVE ULTRASOUND (SURG) completed Francis Smith [facility] 04/14/2022 16:15:59 Imaging Results None recorded. Procedure Notes None recorded. Medical Equipment None Reported. Allergies No known drug allergies Medications Name Sig Start Date Stop Date Status Note LastModified by Organization Details LastModified Time celecoxib 200 mg capsule TAKE ONE CAPSULE BY MOUTH EVERY DAY --TAKE WITH FOOD-- active Not Available Not Available No t Available amoxicillin 500 mg capsule TAKE ONE CAPSULE BY MOUTH EVERY TWELVE HOURS FOR 10 DAYS FOR SINUSITIS -- FINISH ALL MEDICINE -- 03/19 completed Not Available Not Available Not Available atorvastati n 20 mg tablet TAKE ONE TABLET BY MOUTH ONCE DAILY active Not Available Not Available No t Available hydrocodone 7.5 mg-acetamin ophen 325 mg tablet TAKE ONE TABLET BY MOUTH EVERY 4 HOURS NEEDED FOR PAIN MAY CAUSE DROWSINES S active Not Available Not Available No t Available nicotine 21 mg/24 hr daily transdermal patch apply 1 PATCH topically ONCE DAILY active Not Available Not Available No t Available docusate sodium 100 mg capsule TAKE ONE CAPSULE BY MOUTH TWICE DAILY active Not Available Not Available No t Available polyethylen e glycol 3350 17 gram/dose oral powder DISSOLVE 17 GRAMS OF POWDER INTO 4 TO 8 OUNCES OF WATER, JUICE, SODA, COFFEE, OR TEA THEN DRINK EVERY DAY active Not Available Not Available No t Available nitrofurant oin monohydrate /macrocryst als 100 mg capsule TAKE ONE CAPSULE BY MOUTH TWICE DAILY FOR FOURTEEN DAYS -- FINISH ALL MEDICINE -- active Not Available Not Available No t Available atorvastati n 03/19 completed Not Available Not Available Not Available Pepcid active Not Available Not Availa ble Not Available multivitami n active Not Available Not Available Not Available Suprep Bowel Prep Kit 17.5 gram-3.13 gram-1.6 gram oral solution take DIRECTED by instructi on sheet 03/19 completed Not Available Not Available Not Available Vitals Date Recorded Body height Body mass index (BMI) Body weight Provider Name and Address Organization Details Last Updated DateTime 11/06/2024 180.34 cm 27.9 kg/m2 02298.47 [facility] 11/06/[facility]24 09:47:43 Date Recorded Body height Provider Name an d Address Organization Details Last Updated DateTime 11/12/2022 180.34 cm Roxanne Bonilla [facility] 11/12/2022 10:53:00 Date Recorded Body height Provider Name an d Address Organization Details Last Updated DateTime 11/18/2023 180.34 cm Roxanne Bonilla [facility] 11/18/2023 10:33:11 Date Recorded Body height Body mass index (BMI) Body weight Provider Name and Address Organization Details Last Updated DateTime 05/08/2022 180.34 cm 27.9 kg/m2 39941.47 g Marleny Avalos [facility] 05/08/2022 10:24:32 Date Recorded Body height Provider Name an d Address Organization Details Last Updated DateTime 08/28/2022 180.34 cm Gautam Villegas [facility] 08/28/2022 11:02:22 Social History Question Answer Notes LastModified by Organizat ion Details LastModified Time Tobacco Smoking Status Current Every Day [facility] 03/16/[facility]22 17:47:38 What Was The Date Of Your Most Recent Tobacco Screening? 11/06/2024 [email or web address] Information not available 11/06/2024 What Is Your Relationship Status? Information not available 03/16/2022 How Much Tobacco Do You Smoke? 1 PPD Information not available 03/16/2022 Has Tobacco Cessation Counseling Been Provided? No [email or web address] Information not available 08/28/2022 Have You Recently Traveled Abroad? No Information not available 08/28/2022 Sex: Male Functional Status Question Answer Note LastModified by Organizat ion Details LastModified Time Do you use any illicit or recreational drugs? No [email or web address] Information not available 08/28/2022 Do you or have you ever used any other forms of tobacco or nicotine? No [email or web address] Information not available 08/28/2022 What is your level of alcohol consumption? None Information not available 03/16/2022 Mental Status None recorded. Family History Relationship Description Onset Age of this Age Resolved Age Notes LastModified by Organization Details LastModified Time Father No current problems or disability Not available 03/16 17:47:17 Mother No current problems or disability Not available 03/16 17:47:17 Medical History Condition Response Arthritis Y High Cholesterol Y Past Encounters Encounter ID Performer Location Encounter Start Date Encounter Closed Date Diagnosis/Indication Diagnosis SNOMED-CT Code Diagnosis ICD10 Code Diagnosis Note [id number] HELENA LUJAN JR, MD [facility] [address] [place] [address] 03/19/2022 08:15:32 03/19/2022 16:50:29 Renal mass [id number] N28.89 [id number] HELENA LUJAN JR, MD JOSE [facility] [address] [place] [address] 05/08/2022 10:02:04 05/13/2022 14:22:18 Renal cell carcinoma [id number] C64.9 [id number] AMERICA WIGGINS MD [facility] [address] [place] [phone] 08/28/2022 10:21:27 08/28/2022 11:39:11 Spermatocele [id number] N43.40 We will arrange for a scrotal ultrasound to confirm. He is completely asymptomat ic and not suggest observatio n. He will follow-up as previously scheduled with his CT scan of the abdomen a Scrotal mass [id number] N5 0.89 As above [id number] HELENA LUJAN JR, MD JOSE [facility]ADALUPE [facility] [address] [place] [phone] 11/12/2022 10:30:14 11/12/2022 12:54:47 Renal cell carcinoma [id number] C64.9 [id number] HELENA LUJAN JR, MD JOSE GUADALUPE [facility] [address] [place] [phone] 11/18/2023 09:33:22 11/18/2023 10:14:46 Renal cell carcinoma [id number] C64.9 [id number] HELENA LUJAN JR, MD [facility] [address] [place] [phone] 11/06/2024 09:32:40 11/06/2024 09:55:26 Renal cell carcinoma [id number] C64.9 Continued yearly imaging for surveillan ce. Current imaging shows stability and no recurrence . Health Concerns Section Related Observation LastModified by Organization Detai ls LastModified Time None Recorded Concern Status LastModified by Organization Details LastModified Time None Recorded Advance Directives Directive None Recorded Payers Insurance Date Sequence Insurance Name Policy Number Policy Armstrong Covered Member ID Armstrong Member ID Guarantor Name 11/13/2024 1 [place] [id number] 1 Bryce Schultz [id number] Bryce Schultz 11/18/2023 1 [employer] (POS) Bryce Conroy Antoine [id number] Bryce Antoine Notes Date Note Type Note Provider Name and Address Organization Details Recorded Time 05/08/2022 text/html patient is in today for follow-up of renal cell carcinoma. He underwent robotic-assisted laparoscopic right partial nephrectomy April 14, 2022. Pathology report shows clear cell renal cell carcinoma, stage TIa, negative margins. HELENA LUJAN JR, MD [address] [place] [address], [phone], [facility] 05/10/2022 07:57:33 08/28/2022 text/html Patient is here with a new issue. He had right-sided partial nephrectomy by one of my partners earlier this year in March. This was renal cell carcinoma negative margins. He recently noticed a small lesion within the right scrotum. This is nontender. He was last seen here since for surveillance in April he is due for a CT scan in September. He has no voiding complaints. AMERICA WIGGINS MD [address] [place] [address], [phone], [facility] 08/30/2022 15:22:29 11/12/2022 text/html patient is in today for follow-up of renal cell carcinoma. He underwent robotic-assisted laparoscopic right partial nephrectomy April 14, 2022. Pathology report shows clear cell renal cell carcinoma, stage TIa, negative margins. Imaging today shows no evidence of disease HELENA LUJAN JR, MD [address] [place] [address], [phone], [facility] 11/15/2022 19:08:27 11/18/2023 text/html patient is in today for follow-up of renal cell carcinoma. He underwent robotic-assisted laparoscopic right partial nephrectomy April 14, 2022. Pathology report shows clear cell renal cell carcinoma, stage TIa, negative margins. Imaging today shows no evidence of disease HELENA LUJAN JR, MD [address] [place] [address], [phone], [facility] 11/21/2023 14:03:29 11/06/2024 text/html patient is in today for follow-up of renal cell carcinoma. He underwent robotic-assisted laparoscopic right partial nephrectomy April 14, 2022. Pathology report shows clear cell renal cell carcinoma, stage TIa, negative margins. The patient is a 59-year-old male presenting with follow-up for renal cell carcinoma. In 2021, renal cell carcinoma was treated via kidney surgery. Imaging follow-ups are scheduled yearly to detect recurrence. Cysts in the left kidney and liver were observed but are stable. Current imaging shows no disease recurrence. The patient's condition remains stable. HELENA LUJAN JR, MD [address] [place], [phone], [facility] 11/08/2024 17:23:04
--- OUTSIDE RECORDS SUMMARY | 2025-04-14 17:05 | XMS_ITS | Encounter Summary ---
Author Organization [employer] ([place], [place], [place], [place]) Address [address] [place] [address] Care Team Providers Care Food Science Professor Name Role Phone Unavailable Primary Care Provider Unavailabl e Encounter Details Date Type Department Care Team (Late st Contact Info) Description 04/14/2022 Transcribed Document [facility] Family Medicine [facility] [place] [address] ProviderPrasad MD [facility] [address] Social History Tobacco Use Types Packs/Day Years Used Date Smoking Tobacco: Never Assessed Sex and Gender Information Value Date Recorded Sex Assigned at Not on file Legal Sex Male 10:05 AM CDT Gender Identity Not on file Sexual Orientation Not on file documented as of this encounter Miscellaneous Notes * Cerner Conversion Note - Prasad ProviderMD - 04/14/2022 12:14 PM CDT Time Out Documentation Entered On: 04/14/2022 12:16 EDT Performed On: 04/14/2022 12:14 EDT by Brandy Sullivan RN Time Out Documentation Procedure to be Performed : Left TAP peripheral nerve block Time Out Pause Time : 04/14/2022 12:14 EDT All Activity Suspended : Yes Team Verbally Confirms Information : Correct patient identity, Correct side and site are marked, Consent form is present and accurate, Agreement on the procedure to be done, Correct patient position, Confirm the skin prep has dried, Performed in location of procedure after prepped/draped, Performed before each procedure if multiple procedures Brandy Sullivan RN - 04/14/2022 12:15 EDT documented in this encounter Plan of Treatment Not on file documented as of this encounter Visit Diagnoses Not on filedocumented in this encounter
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
--- OUTSIDE RECORDS SUMMARY | 2025-04-14 17:05 | XMS_ITS | Encounter Summary ---
Author Organization [employer] ([place], [place], [place], [place]) Address [address] [place] [address] Care Team Providers Care Vegetable Farm Manager Name Role Phone Unavailable Primary Care Provider Unavailabl e Encounter Details Date Type Department Care Team (Late st Contact Info) Description 04/15/2022 Transcribed Document [facility] [place] [facility] [address] ProviderPrasad MD [facility] [place], [place] [address] Social History Tobacco Use Types Packs/Day Years Used Date Smoking Tobacco: Never Assessed Sex and Gender Information Value Date Recorded Sex Assigned at Not on file Legal Sex Male 10:05 AM CDT Gender Identity Not on file Sexual Orientation Not on file documented as of this encounter Miscellaneous Notes * Cerner Conversion Note - Historical ProviderMD - 04/15/2022 9:24 AM CDT Therapy Screen, OT Entered On: 04/15/2022 10:11 EDT Performed On: 04/15/2022 9:24 EDT by KAREN DILLON OTR/L Therapy Screen, OT Medical Chart Reviewed : Yes Person Providing Information : Patient Screen Completed : Yes Recommendations for Evaluation OT : Do not recommend Occupational Therapy evaluation Therapy Screen Findings, OT : Patient at functional baseline Recommendations Upon Discharge : None Additional Therapy Screen Comment : Pt reports he remains I with ADLs, functional mobility, and denies any OT needs at this time. He is also tentatively d/c'ing home later today. No further skilled OT indicated. KAREN DILLON OTR/L - 04/15/2022 10:10 EDT documented in this encounter Plan of Treatment Not on file documented as of this encounter Visit Diagnoses Not on filedocumented in this encounter
--- OUTSIDE RECORDS SUMMARY | 2025-04-14 17:05 | XMS_ITS | Encounter Summary ---
Author Organization [employer] ([place], [place], [place], [place]) Address [address] [place] [address] Care Team Providers Care Automatic Spooler Operator Name Role Phone Unavailable Primary Care Provider Unavailabl e Encounter Details Date Type Department Care Team (Late st Contact Info) Description 04/14/2022 Transcribed Document [facility] [place] [facility] [place] [address] ProviderPrasad MD [facility] [place], [place] [address] Social History Tobacco Use Types Packs/Day Years Used Date Smoking Tobacco: Never Assessed Sex and Gender Information Value Date Recorded Sex Assigned at Not on file Legal Sex Male 10:05 AM CDT Gender Identity Not on file Sexual Orientation Not on file documented as of this encounter Miscellaneous Notes * Cerner Conversion Note - Prasad ProviderMD - 04/14/2022 4:52 PM CDT Pain Assessment Entered On: 04/15/2022 17:54 EDT Performed On: 04/15/2022 18:50 EDT by Gardenia Geiger Rn Flex I Intervention Information: acetaminophen-HYDROcodone Performed by YAYO QUINN RN on 04/15/2022 17:50:00 EDT acetaminophen-HYDROcodone,2Tab Oral,Pain (Severe 7-10) Pain Assessment Pain Assessment : Follow-up assessment Gardenia Geiger Rn Flex I - 04/15/2022 17:54 EDT documented in this encounter Plan of Treatment Not on file documented as of this encounter Visit Diagnoses Not on filedocumented in this encounter
--- OUTSIDE RECORDS SUMMARY | 2025-04-14 17:05 | XMS_ITS | Encounter Summary ---
Author Organization [employer] ([place], [place], [place], [place]) Address [address] [place] [address] Care Team Providers Care Financial Recruiter Name Role Phone Unavailable Primary Care Provider Unavailabl e Encounter Details Date Type Department Care Team (Late st Contact Info) Description 04/15/2022 Transcribed Document [facility] [place] [facility] [place] [address] ProviderPrasad MD [address] [place] [address] Social History Tobacco Use Types Packs/Day Years Used Date Smoking Tobacco: Never Assessed Sex and Gender Information Value Date Recorded Sex Assigned at Not on file Legal Sex Male 10:05 AM CDT Gender Identity Not on file Sexual Orientation Not on file documented as of this encounter Miscellaneous Notes * Cerner Conversion Note - Prasad ProviderMD - 04/15/2022 10:28 AM CDT On Going Discharge Planning Entered On: 04/15/2022 10:28 EDT Performed On: 04/15/2022 10:28 EDT by CLAUDINE OTERO RN Care Management Progress Note Discharge Arrangements : Patient Post-Acute Information Patient Name: KERWIN SCHULTZ Gender: Male : [birth year] Age: 57 Years No Post-Acute Placement(s) Listed No Post-Acute Service(s) Listed No [place] Referral(s) Listed Discharge Options Discussed with Patient : Discharge transportation Barriers to Discharge Identified : None identified Barriers to Discharge Unresolved : All resolved Patient Discharge Goal : Home Patient Offered Choice/Affiliations Explained : No Designation of Choice Signed : No List/Info Provided Pt/Fam/Support Person : Home care Were Referrals Sent to Post Acute Providers : No [facility] Quality Web Info Shared w Pt/Fam : No Does the Patient have a Floor to SNF Benefit? : No Is the Patient Meeting Medical Necessity : Yes Physician Agreeable to Move Forward with D/C Plan? : Yes Did you Attend Multidisciplinary Rounds? : Yes CLAUDINE OTERO RN - 04/15/2022 10:28 EDT Narrative Progress Note Narrative Progress Note : 57 y/o male s/p Robotic Assisted Laprascopic Right Partial Nephrology with Introperative Ultrasound per Dr. Rodriguez. Spoke with patient to dicuss discharge needs and to verify demgographics and pcp. patient lives with his spouse and is iADLS. PLAN: discharge to home today or tomorrow if bowel function returns. No further CM needs identified. Outpatient no risk on day 1. Spouse will transport patient home. CLAUDINE OTERO RN - 04/15/2022 10:28 EDT documented in this encounter Plan of Treatment Not on file documented as of this encounter Visit Diagnoses Not on filedocumented in this encounter
--- OUTSIDE RECORDS SUMMARY | 2025-04-14 17:05 | XMS_ITS | Encounter Summary ---
Author Organization [employer] ([place], [place], [place], [place]) Address [address] [place] [address] Care Team Providers Care Intrusion Analyst Name Role Phone Unavailable Primary Care Provider Unavailabl e Encounter Details Date Type Department Care Team (Late st Contact Info) Description 04/14/2022 Transcribed Document [facility] [place] [facility] [place] [address] ProviderPrasad MD [facility] [place] [address] Social History Tobacco Use Types Packs/Day Years Used Date Smoking Tobacco: Never Assessed Sex and Gender Information Value Date Recorded Sex Assigned at Not on file Legal Sex Male 10:05 AM CDT Gender Identity Not on file Sexual Orientation Not on file documented as of this encounter Miscellaneous Notes * Cerner Conversion Note - Prasad ProviderMD - 04/14/2022 4:12 PM CDT Consult Phone Call Documentation Entered On: 04/14/2022 16:29 EDT Performed On: 04/14/2022 16:12 EDT by Gardenia Geiger Rn Flex I Phone Call for Consults Consult Phone Call/Page Attempt : First call Gardenia Geiger Rn Flex I - 04/14/2022 16:28 EDT documented in this encounter Plan of Treatment Not on file documented as of this encounter Visit Diagnoses Not on filedocumented in this encounter
--- OUTSIDE RECORDS SUMMARY | 2025-04-14 17:05 | XMS_ITS | Encounter Summary ---
Author Organization [employer] ([place], [place], [place], [place]) Address [address] [place] [address] Care Team Providers Care Membership Administrator Name Role Phone Unavailable Primary Care Provider Unavailabl e Encounter Details Date Type Department Care Team (Late st Contact Info) Description 04/14/2022 Transcribed Document [facility] [place] [facility] [place] [address] ProviderPrasad MD [place] [address] Social History Tobacco Use Types Packs/Day Years Used Date Smoking Tobacco: Never Assessed Sex and Gender Information Value Date Recorded Sex Assigned at Not on file Legal Sex Male 10:05 AM CDT Gender Identity Not on file Sexual Orientation Not on file documented as of this encounter Miscellaneous Notes * Cerner Conversion Note - Historical ProviderMD - 04/14/2022 4:52 PM CDT Pain Assessment Entered On: 04/14/2022 18:47 EDT Performed On: 04/14/2022 18:42 EDT by Gardenia Geiger Rn Flex I Intervention Information: HYDROmorphone Performed by Gardenia Geiger Rn Flex I on 04/14/2022 18:12:00 EDT HYDROmorphone,0.5mg IV Push,Right Antecubit [place],Pain (Severe 7-10) Pain Assessment Pain Assessment : Follow-up assessment Gardenia Geiger Rn Flex I - 04/14/2022 18:47 EDT documented in this encounter Plan of Treatment Not on file documented as of this encounter Visit Diagnoses Not on filedocumented in this encounter
--- OUTSIDE RECORDS SUMMARY | 2025-04-14 17:05 | XMS_ITS | Encounter Summary ---
Author Organization [employer] ([place], [place]) Address [address] [place] [address] Care Team Providers Care Exchange Consultant Name Role Phone Unavailable Primary Care Provider Unavailabl e Encounter Details Date Type Department Care Team (Late st Contact Info) Description 04/14/2022 Transcribed Document [facility] [place] [facility] [place] [address] ProviderPrasad MD [facility] [place], [place] [address] Social History Tobacco Use Types Packs/Day Years Used Date Smoking Tobacco: Never Assessed Sex and Gender Information Value Date Recorded Sex Assigned at Not on file Legal Sex Male 10:05 AM CDT Gender Identity Not on file Sexual Orientation Not on file documented as of this encounter Miscellaneous Notes * Cerner Conversion Note - Historical ProviderMD - 04/14/2022 5:00 PM CDT Pain Assessment Entered On: 04/14/2022 16:52 EDT Performed On: 04/14/2022 16:26 EDT by Gardenia Geiger Rn Flex I Intervention Information: fentaNYL Performed by SHANNAN RENNER on 04/14/2022 15:56:00 EDT fentaNYL,50mcg IV Push,Peripheral Line 1 Pain Assessment Pain Assessment : Follow-up assessment Gardenia Geiger Rn Flex I - 04/14/2022 16:52 EDT documented in this encounter Plan of Treatment Not on file documented as of this encounter Visit Diagnoses Not on filedocumented in this encounter
--- OUTSIDE RECORDS SUMMARY | 2025-04-14 17:05 | XMS_ITS | Encounter Summary ---
Author Organization [employer] ([place], [place], [place], [place]) Address [address] [place] [address] Care Team Providers Care Delivery Man Name Role Phone Unavailable Primary Care Provider Unavailabl e Encounter Details Date Type Department Care Team (Late st Contact Info) Description 04/16/2022 Transcribed Document [facility] [place] [facility] [place] [address] ProviderPrasad MD [address] [place] [address] Social History Tobacco Use Types Packs/Day Years Used Date Smoking Tobacco: Never Assessed Sex and Gender Information Value Date Recorded Sex Assigned at Not on file Legal Sex Male 10:05 AM CDT Gender Identity Not on file Sexual Orientation Not on file documented as of this encounter Miscellaneous Notes * Cerner Conversion Note - Prasad ProviderMD - 04/16/2022 8:16 PM CDT Nursing Discharge Summary Entered On: 04/16/2022 20:19 EDT Performed On: 04/16/2022 20:16 EDT by Malka Guzman RN-PATIENT CARE BEDSIDE NON-EXEMPT Discharge Documentation Discharge Date/Time : 04/16/2022 20:19 EDT Patient Disposition, General : Discharge Discharge To : Home without planned follow-up Mode Of Departure, General Discharge : Private vehicle, Wheelchair Accompanied By, Discharge : Spouse IV Discontinued : Yes Personal Belongings With Patient : Yes Pt's Own Supply of Medications Returned : No patient supply of medications to return Prescriptions Given to Patient : Electronically sent Medications Given to Patient : No Discharge Instructions Reviewed With, Opportunity For Questions Given : Patient, Spouse Patient Education Completed : Yes Teaching Method : Explanation, Printed materials Teaching Evaluation : Verbalizes understanding Malka Guzman RN-PATIENT CARE BEDSIDE NON-EXEMPT - 04/16/2022 20:16 EDT Electronically signed by Jun Cooper Conversion Watermelon Harvesting Supervisor Cerner at 01/05/2023 10:34 PM CDT documented in this encounter Plan of Treatment Not on file documented as of this encounter Visit Diagnoses Not on filedocumented in this encounter
--- OUTSIDE RECORDS SUMMARY | 2025-04-14 17:05 | XMS_ITS | Encounter Summary ---
Author Organization [employer] ([place], [place]) Address [address] [place] [address] Care Team Providers Care Health Care Attorney Name Role Phone Unavailable Primary Care Provider Unavailabl e Encounter Details Date Type Department Care Team (Late st Contact Info) Description 04/15/2022 Transcribed Document [facility] [place] [facility] [place] [address] ProviderPrasad MD [address] [place] [address] Social History Tobacco Use Types Packs/Day Years Used Date Smoking Tobacco: Never Assessed Sex and Gender Information Value Date Recorded Sex Assigned at Not on file Legal Sex Male 10:05 AM CDT Gender Identity Not on file Sexual Orientation Not on file documented as of this encounter Miscellaneous Notes * Cerner Conversion Note - Prasad Torre MD - 04/15/2022 4:09 PM CDT Patient: KERWIN SCHULTZ Age: 57 years Sex: Male : 1965 Associated Diagnoses: Right renal mass; Status post robotic assisted laparoscopic right partial nephrectomy; Hyperlipemia; At risk for sleep apnea; Tobacco use disorder, continuous; Acute kidney injury Author: CRISTY ROGEL MD-INT Basic Information awake alert comfortable, No chest pain or trouble. No nausea or vomiting Silvestre catheter removed and waiting to urinate on his own. As acute kidney injury multifactorial, secondary to hemodynamic from surgery, hypotension, decreased oral fluid intake./medications Ambulating well on his own No BM not passing gas Pain under control Review of Systems Constitutional: No fever, No [...] 16:42:00 EDT Lovenox: 40 mg, SubCutaneous, Inj, [id number], Routine, Start 04/15/22 8:00:00 EDT, 04/14/22 16:42:00 EDT Milk of Magnesia 8% oral suspension: 30 mL, Oral, Liquid, Daily, PRN for Constipation, Routine, Start 04/14/22 16:52:00 EDT Nicoderm C-Q 21 mg/24 hr transdermal film, extended release: 1 Patch, TransDermal, Patch, Daily, Routine, Start 04/15/22 9:00:00 EDT Percocet 5/325 oral tablet: 1 Tab, Oral, [...] BID, # 20 Cap, 0 Refill(s), Pharmacy: [facility], 180.34, , 04/09/22 14:25:00 EDT, CLINICALHEIGHT, 90.91, kg, 04/09/22 14:25:00 EDT, CLINICALWEIGHT Macrobid 100 mg oral capsule: 1 Cap, Oral, BID, X 14 Day(s), # 28 Cap, 0 Refill(s), Pharmacy: [facility] [employer], 180.34, , 04/09/22 14:25:00 EDT, CLINICALHEIGHT, 90.91, kg, 04/09/22 14:25:00 EDT, CLINICALWEIGHT MiraLax oral powder for reconstitution: 17 Gram, Oral, Daily, # 255 Gram, 0 Refill(s), Pharmacy: [facility], 180.34, , 04/09/22 14:25:00 EDT, CLINICALHEIGHT, 90.91, kg, 04/09/22 14:25:00 EDT, CLINICALWEIGHT [place] 7.5 mg-325 mg oral tablet: 1 Tab, Oral, Tab, Q4H, PRN as needed for pain, # 30 Tab, 0 Refill(s), Pharmacy: [facility], 180.34, , 04/09/22 14:25:00 EDT, CLINICALHEIGHT, 90.91, [...] 1 Tab, Oral, Daily, 0 Refill(s), Medications (36) Active Scheduled: (8) atorvastatin 20 mg tab 20 mg 1 Tab, Oral, At Bedtime bisacodyl 10 mg supp 10 mg 1 Supp, Rectal, Daily cefOXitin 2 Gram 50 mL, IV Piggyback, 1-Time docusate sodium 100 mg cap 100 mg 1 Cap, Oral, BID enoxaparin 40 mg/0.4 mL inj 40 mg 0.4 mL, SubCutaneous, [id number] mannitol 25% 12.5 Gram 50 mL, IV Piggyback, 1-Time nicotine 21 mg/24 hr patch 1 Patch, TransDermal, Daily pantoprazole EC 40 mg tab 40 mg 1 Tab, Oral, Daily Continuous: (1) NaCl 0.9% 1,000 mL 1,000 [...] Hyperlipemia Osteoarthritis Physical Examination VS/Measurements Vital Measurements 04/15/2022 14:16 EDT Systolic Blood Pressure 125 mmHg Diastolic Blood Pressure 59 mmHg LOW Mean Arterial Pressure (MAP)-BMDI 77 Temperature Source Oral Temperature Mode Fahrenheit Temperature, Fahrenheit 98.3 Deg F Clinical Temperature, C 36.8 Deg C Heart Rate Monitored 55 bpm LOW Oxygen Saturation 99 % 04/15/2022 9:37 EDT Systolic Blood Pressure 126 mmHg Diastolic Blood Pressure 68 mmHg Mean Arterial Pressure (MAP)-BMDI 79 Temperature Source Oral Temperature Mode Fahrenheit Temperature, Fahrenheit 97.7 Deg F Clinical Temperature, C 36.5 Deg C Heart Rate Monitored 58 bpm LOW Respiratory Rate 18 Breaths/Min Oxygen Saturation 100 % General: Alert and oriented, No acute distress. [...] Review / Management Results review: All Results 04/15/2022 3:28 EDT Sodium Level 137 mmol/L [...] % LOW Lymph # 0.78 K/uL LOW [place] % 3.3 % LOW [place] # 0.66 K/uL Eos % 0.0 % LOW Eos # 0.00 K/uL LOW Baso % 0.1 % Baso # 0.02 K/uL Slide Review No IG# 0 x10(3)/uL IG% 0 % . Impression and Plan Diagnosis Right renal mass [...] renal function, blood glucose, and urine output. Monitoring fluid and electrolytes.. Stress ulcer prophylaxis. Minimize narcotics. Ambulate patient. Discussed with his nurse. Orders Order Profile (Selected) Inpatient Orders Ordered (Scheduled) CMP Comprehensive Metabolic Panel: Specimen Type: Blood, AM Draw collect, 04/16/22 4:00:00 EDT, 1-Time, Stop: 04/16/22 4:00:00 EDT, Lab Collect Hemoglobin and Hematocrit: Specimen Type: Blood, AM Draw collect, 04/16/22 4:00:00 EDT, 1-Time, Stop: 04/16/22 4:00:00 EDT, Lab Collect. documented in this encounter Plan of Treatment Not on file documented as of this encounter Visit Diagnoses Not on filedocumented in this encounter
--- OUTSIDE RECORDS SUMMARY | 2025-04-14 17:05 | XMS_ITS | Encounter Summary ---
Author Organization [employer] ([place], [place], [place], [place]) Address [address] [place] [address] Care Team Providers Care Bee Raiser Name Role Phone Unavailable Primary Care Provider Unavailabl e Encounter Details Date Type Department Care Team (Late st Contact Info) Description 04/17/2022 Transcribed Document [facility] [place] Family Medicine [facility] [place] [address] ProviderPrasad MD [facility] [place] [address] Social History Tobacco Use Types Packs/Day Years Used Date Smoking Tobacco: Never Assessed Sex and Gender Information Value Date Recorded Sex Assigned at Not on file Legal Sex Male 10:05 AM CDT Gender Identity Not on file Sexual Orientation Not on file documented as of this encounter Miscellaneous Notes * Cerner Conversion Note - Prasad ProviderMD - 04/17/2022 4:40 PM CDT CLINICAL DOCUMENTATION CLARIFICATION FORM: _X_ Final Diagnosis on the Pathology report: ___Clear cell renal cell carcinoma___ _X_ Progress Notes indicate: ____Right Renal Mass. Status post Robotic assisted laparoscopic Right partial nephrectomy____ Based on the pathological findings of ___Clear cell renal cell carcinoma__ is this a confirmed diagnosis for this patient? [x ] Yes, this is a secondary diagnosis for this patient [ ] Other (additional comments): [ ] Unable to determine To be completed by CDI/Coding staff for physician review: Present Clinical Indicators - Signs / Symptoms / Labs Results and Location in Medical Record [ X ] Pathology report 04/16 Path report: Clear-cell renal cell carcinoma [ X ] Renal mass 04/16 H+P: Right Renal mass Present Risk Factors Results and Location in Medical Record [ X ] Tobacco abuse 04/16 H+P: Tobacco abuse [ X ] Renal mass 04/16 H+P: Renal mass 04/16 H+P: He underwent CT scan imaging following lung cancer screening CT in January 2022. CT chest was negative; however, there was an incident finding of a renal mass. CT A/P was then obtained on 03/05/22 showing a 2.2 cm upper pole right renal mass consistent with renal cell carcinoma. Present Treatments Results and Location in Medical Record [ X ] Surgery 04/16 H+P: Plan for Right Robotic partial nephrectomy [ X ] Follow up 04/16 Orders: Postoperative follow up 2-3 weeks CDS/Custodial Foreman Signature: ___Lila Mills RN____ Phone #: __[phone]_ Electronically signed by Allison, [facility] Conversion Roller Checker Cerner at 01/05/2023 10:42 PM CDT documented in this encounter Plan of Treatment Not on file documented as of this encounter Visit Diagnoses Not on filedocumented in this encounter
--- OUTSIDE RECORDS SUMMARY | 2025-04-14 17:05 | XMS_ITS | Encounter Summary ---
Author Organization [employer] ([place], [place], [place], [place]) Address [address] [place] [address] Care Team Providers Care Manager Completions Name Role Phone Unavailable Primary Care Provider Unavailabl e Encounter Details Date Type Department Care Team (Late st Contact Info) Description 04/14/2022 Transcribed Document [facility] [place] [facility] [address] ProviderPrasad [place] [facility] [address] Social History Tobacco Use Types Packs/Day Years Used Date Smoking Tobacco: Never Assessed Sex and Gender Information Value Date Recorded Sex Assigned at Not on file Legal Sex Male 10:05 AM CDT Gender Identity Not on file Sexual Orientation Not on file documented as of this encounter Miscellaneous Notes * Cerner Conversion Note - Historical ProviderMD - 04/14/2022 4:22 PM CDT Education-(VTE) / (DVT) Entered On: 04/14/2022 16:52 EDT Performed On: 04/14/2022 16:22 EDT by Gardenia Geiger Rn Flex I Teaching/Learning Assessment Barriers To Learning : None evident Gardenia Geiger Rn Flex I - 04/14/2022 16:52 EDT documented in this encounter Plan of Treatment Not on file documented as of this encounter Visit Diagnoses Not on filedocumented in this encounter
--- OUTSIDE RECORDS SUMMARY | 2025-04-14 17:05 | XMS_ITS | Patient Health Record ---
Author Organization [facility] Address [address] [facility] [address] [place] [id number] Care Team Providers Care Renal Medicine Physician Name Role Phone Thai Peres Primary Care Provider [phone] Venkat Car Unavailable [phone] Allergies No Known Allergies Results Component Value Reference Range Notes P-Comprehensive Metabolic Pa jin (CMP) Reviewed date:08/23/2024 09:07:23 AM Interpretation:satisfactory Performing Lab: Notes/Report: Test performed by [facility] [address] [place], [place] [address] [address] , [address], [place] [address] Gavino Abreu MD, Stock Wetter CLIA: [id number] Sodium 141 135-145 mmol/L Potassium 4.3 3.5-5.3 [...] Interpretation:satisfactory Performing Lab: Notes/Report: Test performed by [facility] [address] [place], [place] [address] [address] , [address], [place] [address] Gavino Abreu MD, Stock Wetter CLIA: [id number] Cholesterol 131 <200 mg/dL Triglycerides 95 <150 [...] Interpretation:Normal Performing Lab: Notes/Report: Test performed by [facility] [employer], [address] , [address], [place] [address] Gavino Abreu MD, Stock Wetter CLIA: [id number] PSA 1.53 <4.00 ng/mL Please note this is an ultrasensitive PSA assay with a lower limit of detection of 0.014 ng/mL. This test is performed by the [employer] ECLIA methodology. Values obtained with different assay methods or kits cannot be directly compared. P-TSH reflex to FT4 Reviewed date:08/23/2024 09:07:23 AM Interpretation:Normal Performing Lab: Notes/Report: Test performed by [facility] [address] [place] [address] , [address], [place] [address] Gavino Abreu MD, Stock Wetter CLIA: [id number] TSH reflex to FT4 0.96 0.43-5.25 mU/L P-Microalbumin/Creatinine, R andom Urine Sample Reviewed date:08/23/2024 09:07:23 AM Interpretation:satisfactory Performing Lab: Notes/Report: Test performed by [facility] [address] [place] [address] , [address], [place] [address] Gavino Abreu MD, Stock Wetter CLIA: [id number] Albumin/Creatinine Ratio, Urine See Comment 0-30 ug/mg Unable to calculate Urine Albumin/Creatinine Ratio when urine creatinine or urine albumin fall outside established reportable range. Microalbumin, Urine, Random <0.3 Creatinine, Urine 181.2 Medications Medication SIG (Take, Route, Frequency, Duration) Notes Start Date End Date Status Famotidine 20 MG 1 tab(s) orally once a day (at bedtime) Active Atorvastatin Calcium 20 MG 1 tab(s) oral ly once a day; Duration: 90 days Active Immunizations Vaccine Route Administration Date Status Comme nts Fluzone PF Quad (6-35 months) Unknown 07/20/2022 Admini stered COVID 19 Kwadwo Unknown 12/07/2020 Administered COVID 19 Kwadwo Unknown 07/26/2021 Administered Problems Problem Type SNOMED Code ICD Code Onset Dates Problem Status W/U Status Risk Notes Problem 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) Active confirmed Problem Tobacco user (675792856) Cigarette nicotine dependence without complication (F17.210) Active confirmed Problem Pure hypercholesterolemia (211022306) Pure hypercholesterolemia (E78.00) Active confirmed Problem Localized, primary osteoarthritis of the hand (447105062) Hand arthritis (M19.049) Active confirmed Problem Malignant tumor of kidney (817426034) Renal cell carcinoma of right kidney (C64.1) Active confirmed Problem Chronic kidney disease stage 3A (disorder) (863973733) Stage 3a chronic kidney disease (CKD) (N18.31) Active confirmed Vital Signs Heart Rate 80 /min 08/09/2024 Blood pressure diastolic 70 mm Hg 08/09/2024 Height 72 in 08/09/2024 Blood pressure systolic 120 mm Hg 08/09/2024 Weight 206.6 lbs 08/09/2024 BMI 28.02 kg/m2 08/09/2024 Encounters Encounter [facility] Date [facility] [address] [facility] [address] [facility] [address] [place] [id number] 08/09/2024 Thia Peres Pure hypercholestero lemia E78.00 ; Stage 3a chronic kidney disease (CKD) N18.31 ; Heartburn R12 and Prostate cancer screening Z12.5 [facility] [address] [facility] [address] [facility] [address] [place] [id number] 08/18/2024 Thai Peres Pure hypercholestero lemia E78.00 ; Stage 3a chronic kidney disease (CKD) N18.31 and Prostate cancer screening Z12.5 Assessments Encounter Date Diagnosis (ICD Code) Assessment Notes Treatment Notes Treatment Clinical Notes Section Notes 08/09/2024 Pure hypercholesterolemia (ICD-10 - E78.00) 08/09/2024 Stage 3a chronic kid leslie disease (CKD) (ICD-10 - N18.31) 08/18/2024 Pure hypercholesterolemia (ICD-10 - E78.00) 08/18/2024 Stage 3a chronic kid leslie disease (CKD) (ICD-10 - N18.31) 08/18/2024 Prostate cancer screening (ICD-10 - Z12.5) 08/09/2024 Heartburn (ICD-10 - R12) 08/09/2024 Prostate cancer screening (ICD-10 - Z12.5) 08/09/2024 Other Patient will return when fasting next week for Lipids, CMP, Urine Micro, PSA and TSH with reflex to free T4 Plan Of Treatment Next Appt Details Provider Name:Thai Stockton , 08/08/2025 04:00:00 PM, [address] [facility] [address] [facility], [address], [place], [id number], Insurance Providers Payer Name Payer Address Payer Phone Subscriber Number Group Number Insured Name Patient Relationship to Insured Coverage Start Date Coverage End Date JACQUE MITCHELL [id number] [place] [address] [id number]LL Self - patient is the insured Medications Administered Medication Instructions Date of Administration Dosage Notes Dexamethasone 09/30/2006 1 mL Medical (General) History Medical History History ICD Code Esophageal Reflux Hypercholestrolemia Colon Polyps Renal cell carcinoma, right kidney (stage 1), s/p excisional biopsy March 2022 Sleep Apnea Arthritis in hands, s/p ortho evaluation Impaired fasting glucose Chronic kidney disease Surgical History Surgery Date(Month/Year) Appendectomy Colonoscopy RT partial nephrectomy due to renal cell carcinoma 03/2022 Hospitalization History Reason Date(Month/Year)
--- OUTSIDE RECORDS SUMMARY | 2025-04-14 17:05 | XMS_ITS | Encounter Summary ---
Author Organization [employer] ([place], [place], [place], [place]) Address [address] [place] [address] Care Team Providers Care Geographic Analyst Name Role Phone Unavailable Primary Care Provider Unavailabl e Encounter Details Date Type Department Care Team (Late st Contact Info) Description 04/15/2022 Transcribed Document [facility] [place] Family Medicine [facility] [place] [address] ProviderPrasad MD [address] [place] [address] Social History Tobacco Use Types Packs/Day Years Used Date Smoking Tobacco: Never Assessed Sex and Gender Information Value Date Recorded Sex Assigned at Not on file Legal Sex Male 10:05 AM CDT Gender Identity Not on file Sexual Orientation Not on file documented as of this encounter Miscellaneous Notes * Cerner Conversion Note - Prasad ProviderMD - 04/15/2022 10:24 AM CDT Initial Discharge Planning Entered On: 04/15/2022 10:26 EDT Performed On: 04/15/2022 10:24 EDT by CLAUDINE OTERO RN Initial Assessment I Previously Documented Living Environment : No qualifying data available. Living Situation : Home Patient Lives With : Spouse Is the Patient a Caregiver at Home? : No Emergency Contact #1 : Esther Schultz Emergency Contact #1 Phone Number : [phone] Emergency Contact #1 Relationship : Emergency Contact #2 : /na Emergency Contact #2 Phone Number : na/ Emergency Contact #2 Relationship : na/ Identified Medical Decision Maker : Kerwin Identified Medical Decision Maker Class : self Enter Doctors Name : Thai Peres Does Patient have PCP Listed? : Yes Legal Guardian : No CLAUDINE OTERO RN - 04/15/2022 10:24 EDT Initial Assessment II Sensory and Motor Deficits : None Current Home Treatments and Equipment : None Services and Community Resources : Other: na Does the Patient have a Floor to SNF Benefit? : No CLAUDINE OTERO RN - 04/15/2022 10:24 EDT Discharge Needs I Anticipated Discharge Date : 04/15/2022 EDT Anticipated Discharge To, CM : Home independently Current Home Treatment/Equipment : Current Home Treatment/Equipment No qualifying data available. Post Acute/Home Treatments : None Documentation Status Complete : Yes CLAUDINE OTERO RN - 04/15/2022 10:24 EDT Discharge Needs II Professional Skilled Services : Professional Skilled Services No qualifying data available. Services and Community Resources : Other: na Needs Assistance with Transportation : No Discharge Options Discussed with Patient : Discharge transportation Patient Discharge Goal : Home CLAUDINE OTERO RN - 04/15/2022 10:24 EDT Narrative Note Narrative Note : 57 y/o male s/p Robotic [...] patient home. CLAUDINE OTERO RN - 04/15/2022 10:24 EDT documented in this encounter Plan of Treatment Not on file documented as of this encounter Visit Diagnoses Not on filedocumented in this encounter
--- OUTSIDE RECORDS SUMMARY | 2025-04-14 17:05 | XMS_ITS | Encounter Summary ---
Author Organization [employer] ([place], [place], [place], [place]) Address [address] [place] [address] Care Team Providers Care Rough Rib Grader Name Role Phone Unavailable Primary Care Provider Unavailabl e Encounter Details Date Type Department Care Team (Late st Contact Info) Description 04/15/2022 Transcribed Document [facility] [place] [facility] [place] [address] ProviderPrasad MD [facility] [place] [address] Social History Tobacco Use Types Packs/Day Years Used Date Smoking Tobacco: Never Assessed Sex and Gender Information Value Date Recorded Sex Assigned at Not on file Legal Sex Male 10:05 AM CDT Gender Identity Not on file Sexual Orientation Not on file documented as of this encounter Miscellaneous Notes * Cerner Conversion Note - Prasad ProviderMD - 04/15/2022 10:[address] [facility] OT Charges Entered On: 04/15/2022 10:11 EDT Performed On: 04/15/2022 10:11 EDT by KAREN DILLON OTR/Ted [place] OT Charges Screen For Clinical Science Liaison : 1 OT EA ADDL 15 MIN NO CHARGE : 1 KAREN DILLON OTR/Ted - 04/15/2022 10:11 EDT documented in this encounter Plan of Treatment Not on file documented as of this encounter Visit Diagnoses Not on filedocumented in this encounter
--- OUTSIDE RECORDS SUMMARY | 2025-04-14 17:05 | XMS_ITS | Encounter Summary ---
Author Organization [email or web address] ([place], [place], [place], [place]) Address [address] [place] [address] Care Team Providers Care Clinical Cytopathologist Name Role Phone Unavailable Primary Care Provider Unavailabl e Encounter Details Date Type Department Care Team (Late st Contact Info) Description 04/16/2022 Transcribed Document [facility] [place] Family Medicine [address] [place] [address] ProviderPrasad MD [address] [place], [place] [address] Social History Tobacco Use Types Packs/Day Years Used Date Smoking Tobacco: Never Assessed Sex and Gender Information Value Date Recorded Sex Assigned at Not on file Legal Sex Male 10:05 AM CDT Gender Identity Not on file Sexual Orientation Not on file documented as of this encounter Miscellaneous Notes * Cerner Conversion Note - Historical ProviderMD - 04/16/2022 7:53 PM CDT Stroke/Warfarin Instructions Entered On: 04/16/2022 19:54 EDT Performed On: 04/16/2022 19:53 EDT by Malka Guzman RN-PATIENT CARE BEDSIDE NON-EXEMPT Stroke/Warfarin Instructions Stroke/TIA Discharge Ins : N/A Warfarin Discharge Ins : N/A Malka Guzman RN-PATIENT CARE BEDSIDE NON-EXEMPT - 04/16/2022 19:53 EDT documented in this encounter Plan of Treatment Not on file documented as of this encounter Visit Diagnoses Not on filedocumented in this encounter
--- OUTSIDE RECORDS SUMMARY | 2025-04-14 17:05 | XMS_ITS | Encounter Summary ---
Author Organization [employer] ([place], [place], [place], [place]) Address [address] [place] [address] Care Team Providers Care Fuel Truck Driver Name Role Phone Unavailable Primary Care Provider Unavailabl e Encounter Details Date Type Department Care Team (Late st Contact Info) Description 04/14/2022 Transcribed Document [facility] [place] Family Medicine [facility] [place] [address] ProviderPrasad MD [facility] [place], [place] [address] Social History Tobacco Use Types Packs/Day Years Used Date Smoking Tobacco: Never Assessed Sex and Gender Information Value Date Recorded Sex Assigned at Not on file Legal Sex Male 10:05 AM CDT Gender Identity Not on file Sexual Orientation Not on file documented as of this encounter Miscellaneous Notes * Cerner Conversion Note - Historical ProviderMD - 04/14/2022 4:42 PM CDT Pain Assessment Entered On: 04/15/2022 9:30 EDT Performed On: 04/15/2022 6:57 EDT by Gardenia Geiger Rn Flex I Intervention Information: acetaminophen-oxyCODONE Performed by Malka Guzman RN-PATIENT CARE BEDSIDE NON-EXEMPT on 04/15/2022 05:57:00 EDT acetaminophen-oxyCODONE,1Tab Oral,Pain (Moderate 4-6) Pain Assessment Pain Assessment : Follow-up assessment Gardenia Geiger Rn Flex I - 04/15/2022 9:30 EDT Electronically signed by Wilder Cooper Conversion Metal Milling Machine Operator Cerner at 01/05/2023 10:56 PM CDT documented in this encounter Plan of Treatment Not on file documented as of this encounter Visit Diagnoses Not on filedocumented in this encounter
--- OUTSIDE RECORDS SUMMARY | 2025-04-14 17:05 | XMS_ITS | Encounter Summary ---
Author Organization [employer] ([place], [place], [place], [place]) Address [address] [place] [address] Care Team Providers Care Towing Pilot Name Role Phone Unavailable Primary Care Provider Unavailabl e Encounter Details Date Type Department Care Team (Late st Contact Info) Description 04/14/2022 Transcribed Document [facility] [place] Family Medicine [address] [place] [address] ProviderPrasad MD [address] [place] [address] Social History Tobacco Use Types Packs/Day Years Used Date Smoking Tobacco: Never Assessed Sex and Gender Information Value Date Recorded Sex Assigned at Not on file Legal Sex Male 10:05 AM CDT Gender Identity Not on file Sexual Orientation Not on file documented as of this encounter Miscellaneous Notes * Cerner Conversion Note - Prasad Torre MD - 04/14/2022 4:25 PM CDT Patient: KERWIN SCHULTZ Age: 57 years Sex: Male : 1965 Associated Diagnoses: Right renal mass; Status post robotic assisted laparoscopic right partial nephrectomy; Hyperlipemia; At risk for sleep apnea; Tobacco use disorder, continuous Author: CRISTY DAVIS MD-INT Date of admission 04/14/2022 Date of consult 04/14/2022 PCP, Thai Peres MD Urologist, Bari Rodriguez MD Hospitalist medicine consult, internal medicine, Cristy Davis MD Reason for the consult, postoperative medical management Surgery See operative report dictated by Dr. Rodriguez Admitting diagnosis 1???right renal mass 2???s/p robotic assisted laparoscopic right partial nephrectomy with intraoperative ultrasound 3???HTN 4???at risk for ANGEL 5???tobacco use disorder, continuous History of present illness A pleasant 57 years old white male with a history of HTN, ANGEL, in addition to right renal mass who is after medical clearance by his PCP he underwent today robotic assisted laparoscopic right partial nephrectomy with intraoperative ultrasound by Dr. Rodriguez. Patient had surgery and is recovering well is awake alert cooperative responsive under no acute distress and is answering questions appropriately. Currently patient is on oral as well as IV pain medicine as per Dr. Rodriguez recommendations and his pain is under control. Patient is on DVT prophylaxis as per Dr. Rodriguez protocol. Patient has a Silvestre catheter and his urine output is adequate. Patient is on scheduled bowel regimen. Patient did not started on oral nutrition yet. . Patient denies any chest pain, shortness of breath, diaphoresis nausea or vomiting. PT/OT on board. Review of Systems Constitutional: No fever, No chills. Eye: No visual disturbances. Ear/Nose/Mouth/Throat: No nasal congestion, No sore throat. Respiratory: No shortness of breath, No cough. Cardiovascular: No chest pain, No tachycardia. Gastrointestinal: No nausea, No vomiting, No abdominal pain. Genitourinary: No change in urine stream. Hematology/Lymphatics: No bleeding tendency. Endocrine: No polyuria, No cold intolerance, No heat intolerance. Immunologic: Negative. Musculoskeletal: Negative. Integumentary: No rash, No pruritus. Neurologic: No confusion, No numbness, No tingling, No headache. Psychiatric: No anxiety, No depression. All other systems are negative Health Status Allergies: Allergies (1) Active Reaction Tape Skin sensitivity Current medications: (Selected) Inpatient Medications Ordered Colace: 100 mg, Oral, Cap, BID, Routine, Start 04/14/22 16:52:00 EDT, 04/14/22 16:52:00 EDT Colace: 100 mg, Oral, Cap, BID, Routine, [...] Start 04/15/22 9:00:00 EDT, 04/14/22 16:42:00 EDT Mefoxin + Sodium Chloride 0.9% intravenous solution 50 mL: 2 Gram, IV Piggyback, Inj, 1-Time, infuse over 30 Minute(s), Start 04/14/22 17:30:00 EDT, Stop 04/14/22 17:30:00 EDT, 100 mL/Hr, Indication: Surgical Prophylaxis Milk of Magnesia 8% oral suspension: 30 mL, Oral, Liquid, Daily, PRN for Constipation, Routine, Start 04/14/22 16:52:00 EDT Percocet 5/325 oral tablet: 1 Tab, [...] (Severe 7-10), Routine, Start 04/14/22 16:52:00 EDT calcium gluconate: 1 Gram 10 mL, IV Piggyback, Inj, Daily, PRN for Other (See Comment), Routine, Start 04/14/22 16:49:00 EDT, 60 mL/Hr, Infuse Over: 60 Minute(s), 04/14/22 16:49:00 EDT calcium gluconate: 2 Gram, IV Piggyback, Inj, Daily, PRN for Other (See Comment), Routine, Start 04/14/22 16:49:00 EDT, 04/14/22 16:49:00 EDT calcium gluconate: 2 Gram, IV Piggyback, Inj, Q12H, PRN for Other (See Comment), Routine, Start 04/14/22 16:49:00 EDT, 04/14/22 16:49:00 EDT cefOXitin: 2 Gram, IV [...] EDT, 04/14/22 16:52:00 EDT magnesium sulfate: 2 Gram, IV Piggyback, Inj, Daily, PRN for Other (See Comment), Routine, Start 04/14/22 16:49:00 EDT, 04/14/22 16:49:00 EDT magnesium sulfate: 2 Gram, IV Piggyback, Inj, Q2H, PRN for Other (See Comment), Routine, Start 04/14/22 16:49:00 EDT, 04/14/22 16:49:00 EDT mannitol 25% intravenous solution: [...] 20 mEq oral tablet, extended release: 20 mEq, Oral, ER Tab, Q2H, PRN for Other (See Comment), Routine, Start 04/14/22 16:49:00 EDT, 04/14/22 16:49:00 EDT potassium chloride 20 mEq oral tablet, extended release: 60 mEq, Oral, ER Tab, Q2H, PRN for Other (See Comment), [...] BID, # 20 Cap, 0 Refill(s), Pharmacy: [facility], 180.34, cm, 04/09/22 14:25:00 EDT, CLINICALHEIGHT, 90.91, kg, 04/09/22 14:25:00 EDT, CLINICALWEIGHT Macrobid 100 mg oral capsule: 1 Cap, Oral, BID, X 14 Day(s), # 28 Cap, 0 Refill(s), Pharmacy: [facility], 180.34, cm, 04/09/22 14:25:00 EDT, CLINICALHEIGHT, 90.91, kg, 04/09/22 14:25:00 EDT, CLINICALWEIGHT MiraLax oral powder for reconstitution: 17 Gram, Oral, Daily, # 255 Gram, 0 Refill(s), Pharmacy: [facility], 180.34, , 04/09/22 14:25:00 EDT, CLINICALHEIGHT, 90.91, kg, 04/09/22 14:25:00 EDT, CLINICALWEIGHT Cassadaga 7.5 mg-325 mg oral tablet: 1 Tab, Oral, Tab, Q4H, PRN as needed for pain, # 30 Tab, 0 Refill(s), Pharmacy: [facility], 180.34, , 04/09/22 14:25:00 EDT, CLINICALHEIGHT, 90.91, [...] tablet: 1 Tab, Oral, Daily, 0 Refill(s), Home Medications (9) Active Aleve 220 mg, PRN, Oral, Q12H atorvastatin 20 mg oral tablet 20 mg = 1 Tab, Oral, Daily Colace 100 mg oral capsule 100 mg = 1 Cap, Oral, BID Macrobid 100 mg oral capsule 100 mg = 1 Cap, Oral, BID MiraLax oral powder for reconstitution 17 Gram, Oral, Daily Multiple Vitamins oral tablet 1 Tab, Oral, Daily Cassadaga 7.5 mg-325 mg oral tablet 1 Tab, PRN, Oral, Q4H Pepcid AC 10 mg oral tablet 10 mg = 1 Tab, Oral, Daily Tylenol 325 mg oral capsule 325 mg = 1 Cap, PRN, Oral, TID , Medications (36) Active Scheduled: (7) bisacodyl 10 mg supp 10 mg 1 Supp, Rectal, Daily cefOXitin 2 Gram 50 mL, IV Piggyback, 1-Time cefOXitin + NaCl 0.9% *MBP* 50 mL 2 Gram, IV Piggyback, 1-Time docusate sodium 100 mg cap 100 mg 1 Cap, Oral, BID docusate sodium 100 mg cap 100 mg 1 Cap, Oral, BID mannitol 25% 12.5 Gram 50 mL, IV Piggyback, 1-Time pantoprazole EC 40 mg tab 40 mg 1 Tab, Oral, Daily Continuous: (1) NaCl 0.9% 1,000 mL 1,000 mL, IntraVENous, 125 mL/Hr PRN: (28) acetaminophen 325 mg tab 325 mg 1 [...] Supp, Rectal, BID calcium gluconate 1 Gram 10 mL, IV Piggyback, Daily calcium gluconate 2 Gram, IV Piggyback, Daily calcium gluconate 2 Gram, IV Piggyback, Q12H cloNIDine 0.1 mg tab 0.1 mg 1 Tab, Oral, Q4H diphenhydrAMINE 25 mg tab 25 mg 1 Tab, Oral, Q6H HYDROmorphone 0.5 mg 0.5 mL, IV Push, Q2H HYDROmorphone 1 mg/1 mL inj 0.5 mg 0.5 mL, IV Push, Q4H magnesium hydroxide 8% liq 30 mL 30 mL, Oral, Daily magnesium sulfate 2 Gram, IV Piggyback, Daily magnesium sulfate 2 Gram, IV Piggyback, Q2H metoclopramide 10 mg/2 mL inj 5 mg 1 mL, IV Push, Q6H ondansetron 4 mg/2 mL inj 4 mg 2 mL, IV Push, Q4H ondansetron 4 mg/2 mL inj 4 mg 2 mL, IV Push, Q4H ondansetron 4 mg/2 mL inj 4 mg 2 mL, IV Push, Q4H potassium chloride 20 mEq, Oral, Q2H potassium chloride 60 mEq, Oral, Q2H potassium chloride 10 mEq 50 mL, IV Piggyback, Q1H sodium phosphate 15 mMole 5 mL, IV Piggyback, Daily sodium phosphate 15 mMole 5 mL, IV Piggyback, Q6H temazepam 15 mg cap 15 mg 1 Cap, Oral, At Bedtime traZODone 50 mg tab 50 mg 1 Tab, Oral, At Bedtime Problem list: Active Problems (4) At risk for sleep apnea Cancer Kidney Hyperlipemia Osteoarthritis Histories Family History: Patient denies any family history of CAD, DM, HTN, or cancer Procedure history: Appendectomy ([id number]). Colonoscopy ([id number]). Social History Patient is and has 2 children is a smoker and drinks alcohol very seldom. Physical Examination VS/Measurements Vital Signs/Vital Measures 04/14/2022 16:03 EDT Systolic Blood Pressure 100 mmHg Diastolic Blood Pressure 53 mmHg LOW Mean Arterial Pressure (MAP)-BMDI 75 Heart Rate Monitored 65 bpm Respiratory Rate 20 Breaths/Min Oxygen Saturation 98 % 04/14/2022 15:58 EDT Systolic Blood Pressure 121 mmHg Diastolic Blood Pressure 70 mmHg Mean Arterial Pressure (MAP)-BMDI 90 Heart Rate Monitored 64 bpm Respiratory Rate 16 Breaths/Min Oxygen Saturation 99 % Oxygen Therapy Mode Nasal cannula Oxygen Flow Rate 2 Liter/Min 04/14/2022 15:38 EDT Systolic Blood Pressure 125 mmHg Diastolic Blood Pressure 75 mmHg Mean Arterial Pressure (MAP)-BMDI 95 Temperature, Fahrenheit 97.8 Deg F Clinical Temperature, C 36.6 Deg C Heart Rate Monitored 68 bpm Respiratory Rate 16 Breaths/Min Oxygen Saturation 100 % 04/14/2022 15:23 EDT Systolic Blood Pressure 111 mmHg Diastolic Blood Pressure 67 mmHg Mean Arterial Pressure (MAP)-BMDI 85 Heart Rate Monitored 67 bpm Respiratory Rate 16 Breaths/Min Oxygen Saturation 99 % 04/14/2022 15:08 EDT Systolic Blood Pressure 123 mmHg Diastolic Blood Pressure 69 mmHg Mean Arterial Pressure (MAP)-BMDI 90 Heart Rate Monitored 68 bpm Respiratory Rate 16 Breaths/Min Oxygen Saturation 98 % 04/14/2022 14:53 EDT Systolic Blood Pressure 116 mmHg Diastolic Blood Pressure 68 mmHg Mean Arterial Pressure (MAP)-BMDI 86 Heart Rate Monitored 69 bpm Respiratory Rate 20 Breaths/Min Oxygen Saturation 96 % 04/14/2022 14:48 EDT Systolic Blood Pressure 116 mmHg Diastolic Blood Pressure 69 mmHg Mean Arterial Pressure (MAP)-BMDI 85 Heart Rate Monitored 68 bpm Respiratory Rate 16 Breaths/Min Oxygen Saturation 96 % 04/14/2022 14:43 EDT Systolic Blood Pressure 117 mmHg Diastolic Blood Pressure 68 mmHg Mean Arterial Pressure (MAP)-BMDI 85 Heart Rate Monitored 70 bpm Respiratory Rate 20 Breaths/Min Oxygen Saturation 96 % 04/14/2022 14:38 EDT Systolic Blood Pressure 114 mmHg Diastolic Blood Pressure 62 mmHg Mean Arterial Pressure (MAP)-BMDI 83 Temperature Source Temporal artery scanning Temperature Mode Fahrenheit Temperature, Fahrenheit 97.2 Deg F Clinical Temperature, C 36.2 Deg C Pulse Rhythm Regular Heart Rate Monitored 73 bpm Respiratory Rate 16 Breaths/Min Oxygen Saturation 98 % Oxygen Therapy Mode Nasal cannula Oxygen Flow Rate 3 Liter/Min 04/14/2022 12:25 EDT Systolic Blood Pressure 110 mmHg Diastolic Blood Pressure 64 mmHg Pulse Rhythm Regular Heart Rate Monitored 63 bpm Respiratory Rate 16 Breaths/Min Oxygen Saturation 100 % Oxygen Therapy Mode Nasal cannula Oxygen Flow Rate 2 Liter/Min 04/14/2022 12:20 EDT Systolic Blood Pressure 125 mmHg Diastolic Blood Pressure 71 mmHg Pulse Rhythm Regular Heart Rate Monitored 64 bpm Respiratory Rate 16 Breaths/Min Oxygen Saturation 100 % Oxygen Therapy Mode Nasal cannula Oxygen Flow Rate 2 Liter/Min 04/14/2022 12:15 EDT Systolic Blood Pressure 125 mmHg Diastolic Blood Pressure 76 mmHg Pulse Rhythm Regular Heart Rate Monitored 60 bpm Respiratory Rate 16 Breaths/Min Oxygen Saturation 100 % Oxygen Therapy Mode Nasal cannula Oxygen Flow Rate 2 Liter/Min General: Alert and oriented, No acute distress. Eye: Pupils are equal, round and reactive to light, Normal conjunctiva, Vision unchanged. HENT: Normocephalic, Tympanic membranes are clear, Normal hearing, Oral mucosa is moist, No pharyngeal erythema, No sinus tenderness. Neck: Supple, Non-tender, No carotid bruit, No jugular venous distention, No lymphadenopathy, No thyromegaly. Respiratory: Lungs are clear to auscultation, Respirations are non-labored, Breath sounds are equal, Symmetrical chest wall expansion, No chest wall tenderness. Cardiovascular: Normal rate, Regular rhythm, No murmur, No gallop, Good pulses equal in all extremities, Normal peripheral perfusion, No edema. Gastrointestinal: Soft, Non-tender, Non-distended, Normal bowel sounds, No organomegaly. Genitourinary: No costovertebral angle tenderness, No inguinal tenderness, No urethral discharge, No lesions. Lymphatics: No lymphadenopathy neck, axilla, groin. Musculoskeletal: Normal range of motion, Normal strength, No tenderness, No swelling, No deformity, Normal gait. Integumentary: Warm, [place], Intact, No pallor, No rash, WOUND STABLE. Neurologic: Alert, Oriented, Normal sensory, Normal motor function, No focal deficits, Cranial Nerves II-XII are grossly intact, Normal deep tendon reflexes. Psychiatric: Cooperative, Appropriate mood & affect, Normal judgment, Non-suicidal. Review / Management Results review: Lab results 04/14/2022 10:36 EDT ABO/Rh A POS Antibody Screen Negative ABSC 04/14/2022 9:57 EDT ABO/Rh Repeat A POS . Impression and Plan Diagnosis Right renal mass - Admitting, Medical. Status post robotic assisted laparoscopic right partial nephrectomy - Admitting, Medical. Hyperlipemia - Discharge, Medical. At risk for sleep apnea - Discharge, Medical. Tobacco use disorder, continuous - Admitting, Medical. Course: Plan/Respirex @ BS and encourage patient to use. Sleep apnea precautions if needed. C-pap at night if needed. Hold all BP meds if BSP < 130 MMHg. If SBP < 90 mmHg, you may give 500 ml NS IVF over one hour. . If no or low UOP you may give 250 mL NS IV over one hour. AM Labs BMP & Hgb/HCT. If pt. spikes fever > 101* F, encourage pt to use Respirex first, then you may give Tylenol 650 mg PO/RI x 1. If no response in 2 hours, you may get blood cx. x2, chest x-ray, sputum CX, S, gram stain x3, UA, C&S. Patient may have chloroseptic spray or throat lozenges for soar throat. DVT prophylaxis. If at any time the HGB is less than 8 type and cross then transfuse 2 units of PRBCs. Premedicate with Tylenol 650 mg PO and Benadryl 25mg PO. Electrolytes Replacement Protocol. Pain control. Close monitoring fluid and electrolytes. Fall risk precautions. Sleep apnea precautions. Stress ulcer prophylaxis.. NicoDerm patch 21 mg daily . Electronically signed by Wilder Cooper Conversion Restaurant Operations Manager [employer]ner at 01/05/2023 10:40 PM CDT documented in this encounter Plan of Treatment Not on file documented as of this encounter Visit Diagnoses Not on filedocumented in this encounter
--- NOTE | 2025-04-14 17:06 | CT_ITS ---
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 Radiation optimization: All CT scans at this facility use at least one of these dose optimization techniques: automated exposure control; mA and/or kV adjustment per patient size (includes targeted exams where dose is matched to clinical indication); or iterative reconstruction. COMPARISON: No relevant prior studies available. FINDINGS: Brain: Mild chronic brain volume loss and chronic small vessel ischemic changes. Cerebral ventricles: No ventriculomegaly. Paranasal sinuses: Mild mucosal thickening in the paranasal sinuses. Mastoid air cells: Visualized mastoid air cells are well aerated. Bones: Unremarkable. No acute fracture. Soft tissues: Left-sided scalp laceration near the vertex. IMPRESSION: No acute intracranial findings.
--- OUTSIDE RECORDS SUMMARY | 2025-04-14 17:06 | XMS_ITS | Encounter Summary ---
Author Organization [employer] ([place], [place], [place], [place]) Address [address] [place] [address] Care Team Providers Care Hand Candle Molder Name Role Phone Unavailable Primary Care Provider Unavailabl e Encounter Details Date Type Department Care Team (Late st Contact Info) Description 04/16/2022 Transcribed Document [facility] [place] Family Medicine [facility] [place] [address] ProviderPrasad MD [facility] [place], [place] [id number] Social History Tobacco Use Types Packs/Day Years Used Date Smoking Tobacco: Never Assessed Sex and Gender Information Value Date Recorded Sex Assigned at Not on file Legal Sex Male 10:05 AM CDT Gender Identity Not on file Sexual Orientation Not on file documented as of this encounter Miscellaneous Notes * Cerner Conversion Note - Prasad ProviderMD - 04/16/2022 6:27 PM CDT Patient: KERWIN SCHULTZ Age: 57 years Sex: Male : 1965 Associated Diagnoses: None Author: HELENA LUJAN JR, MD-URO Patient is feeling well Reports bowel movement today Abdominal pain improving Abdomen benign Creatinine is stable Plan for KALEIGH drain removal and discharge tonight Will follow-up with creatinine as an outpatient I encouraged patient to have good fluid intake Increasing creatinine is likely secondary to warm ischemia during surgery with renal artery clamping Electronically signed by Allison [facility] Conversion Credit Rating Inspector [employer]ner at 01/05/2023 10:36 PM CDT documented in this encounter Plan of Treatment Not on file documented as of this encounter Visit Diagnoses Not on filedocumented in this encounter
--- OUTSIDE RECORDS SUMMARY | 2025-04-14 17:06 | XMS_ITS | Encounter Summary ---
Author Organization [email or web address] ([place], [place], [place], [place]) Address [address] [place] [address] Care Team Providers Care Banking Services Advisor Name Role Phone Unavailable Primary Care Provider Unavailabl e Encounter Details Date Type Department Care Team (Late st Contact Info) Description 04/09/2022 Transcribed Document [facility] [place] Medicine [facility] [place] [address] ProviderPrasad MD [address] [place] [id number] Social History Tobacco Use Types Packs/Day Years Used Date Smoking Tobacco: Never Assessed Sex and Gender Information Value Date Recorded Sex Assigned at Not on file Legal Sex Male 10:05 AM CDT Gender Identity Not on file Sexual Orientation Not on file documented as of this encounter Miscellaneous Notes * [employer]ner Conversion Note - Prasad ProviderMD - 04/09/2022 2:25 PM CDT PAT Adult Entered On: 04/09/2022 14:31 EDT Performed On: 04/09/2022 14:25 EDT by Elda Preston RN Vital Measurements Temperature Source : Temporal artery scanning Temperature, Fahrenheit : 99.1 Deg F Clinical Temperature, C : 37.3 Deg C Heart Rate, Apical : 86 bpm Respiratory Rate : 18 Breaths/Min Systolic Blood Pressure : 136 mmHg Diastolic Blood Pressure : 87 mmHg Oxygen Saturation : 97 % Oxygen Therapy Mode : Room air Elda Preston RN - 04/09/2022 14:25 EDT Height and Weight, Clinical Dosing Height Source : Measured Height Entry Format : [place] Height, Feet : 5 ft(Converted to: 152 cm, 60 Inch) Height, Inches : 11 Inch(Converted to: 0 ft 11 Inch, 27.94 cm) Clinical Height : 180.34 cm Weight Source : Standing scale Weight Entry Format : [place] Clinical Dosing Weight : 90.91 kg Weight, Pounds : 200 lb Body Surface Area (BSA) : 2.11 m2 Body Mass Index : 28 kg/m2 (HI) Louise Body Weight : 74 kg Elda Preston RN - 04/09/2022 14:25 EDT Health Histories Smoking Status : 10 or more cigarettes (1/2 pack or more)/day in last 30 days Smokeless Tobacco Status : Never Desires Tobacco Cessation Medication : No Reason for No Tobacco Cessation Medication : Other: . Elda Preston RN - 04/09/2022 14:25 EDT Social History (As Of: 04/09/2022 14:31:59 EDT) Tobacco: 10 or more cigarettes (1/2 pack or more)/day in last 30 days Smoking Status. (Last Updated: 04/09/2022 14:21:26 EDT by Elda Preston RN) Alcohol: Alcohol Use History Yes. Alcohol Use Frequency Monthly. (Last Updated: 04/09/2022 14:21:26 EDT by Elda Prestno RN) Substance Abuse: Drug Use Hx: No. Use in Last 12 Months: No. (Last Updated: 04/09/2022 14:21:26 EDT by Elda Preston RN) Infectious Disease History Does patient have symptoms of COVID-19? : No Tested for COVID19 in the past 14 days : No, Patient stated Does the Patient state known exposure to a COVID-19 positive case in the last 14 days? : No Patient Vaccinated for COVID-19 : Fully vaccinated Elda Preston RN - 04/09/2022 14:25 EDT Infectious Disease Risk Screening Grid Cough < 2 wks of unknown origin : NO Cough > 2 weeks : NO Blood in Sputum : NO Fever or self-reported Fever : NO Rash of unknown origin : NO Headache : NO Stiff neck : NO Night Sweats : NO Unexplained Weight Loss : NO Diarrhea (3 episode per day) : NO Elda Preston RN - 04/09/2022 14:25 EDT Physical contact outside [place] in the last 30 days : No Hospitalized in Foreign Country : No Infectious Disease History : Chicken pox/Shingles, Mumps INF Disease TB Screening Calc : 0 INF Disease Recent Travel Calc : 0 Elda Preston RN - 04/09/2022 14:25 EDT COVID19 PreProcedure Screening Is this an Emergent or Add on Procedure? : No Date PreProcedure COVID-19 test known? : No Has patient been isolated since the test : N/A - PreProcedure, in-person visit Exposed to COVID19 symptoms since test? : N/A - PreProcedure, in-person visit Elda Preston RN - 04/09/2022 14:25 EDT Anesthesia/Transfusion History Family History of Anesthesia Reaction : No prior transfusion(s) Transfusion History : Prior anesthesia without reaction Family History of Anesthesia Reaction : None Elda Preston RN - 04/09/2022 14:25 EDT Advance Directive Patient has Advance Directive *Q : No, patient refuses Advance Directive information Elda Preston RN - 04/09/2022 14:[address] [place] Suicide Severity Rating Scale (C-SSRS) CSSRS Past Month Wish to be : No CSSRS Past Month Suicidal Thoughts : No CSSRS Lifetime Suicide Behavior : No Suicide Severity Rating Score : 0 Suicide Severity Rating : No Additional Care Required at this time Elda Preston RN - 04/09/2022 14:25 EDT Psychosocial History Currently in Unsafe Situation : No Elda Preston RN - 04/09/2022 14:25 EDT Teaching/Learning Assessment Individuals Taught : Patient Readiness to Learn : Cooperative Elda Preston RN - 04/09/2022 14:25 EDT Education Topics, Periop Preadmission Perioperative Education Grid Arrival Time/Place : Verbalizes understanding CHG Preoperative Bathing/Cloths : Verbalizes understanding Infection Control : Verbalizes understanding Pain Management : Verbalizes understanding Preprocedure Preparations : Verbalizes understanding Preprocedure Tests/Labs : Verbalizes understanding Remove Body Piercings : Verbalizes understanding Responsible Adult : Verbalizes understanding Take/Hold Medications Pre-Procedure : Verbalizes understanding Elda Preston RN - 04/09/2022 14:25 EDT General Info Want Family/Rep/Phys Notified of Admit : No Emergency Contact #1 : Esther Schultz Emergency Contact #1 Phone Number : [phone] Emergency Contact #1 Relationship : Emergency Contact #2 : / Emergency Contact #2 Phone Number : / Emergency Contact #2 Relationship : / Primary Language : Yakut Communication Barrier : None Landscape Account Manager Needed : No Elda Preston RN - 04/09/2022 14:25 EDT Juancarlos Scale Juancarlos Sensory Perception : No impairment Juancarlos Moisture : Rarely moist Juancarlos Activity : Walks frequently Juancarlos Mobility : No limitation Juancarlos Nutrition : Adequate Juancarlos Friction and Shear : No apparent problem Juancarlos Score : 22 Elda Preston RN - 04/09/2022 14:25 EDT Sleep Apnea Risk Assmt Hx of Obstructive Sleep Apnea Diagnosis : No Snore Loudly : Yes Tired, Fatigued, or Sleepy During Day : No Observed Stopping Breathing During Sleep : No Have/Are Being Treated for Hypertension : No BMI Greater Than 35 kg/m2 : No Age over 50 Years Old : Yes Neck Circumference Greater Than 40 cm : No Gender Male : Yes STOP-BANG Sleep Apnea Risk Level Score : 3 Elda Preston RN - 04/09/2022 14:25 EDT documented in this encounter Plan of Treatment Not on file documented as of this encounter Visit Diagnoses Not on filedocumented in this encounter
--- OUTSIDE RECORDS SUMMARY | 2025-04-14 17:06 | XMS_ITS | Encounter Summary ---
Author Organization [employer] ([place], [place], [place], [place]) Address [address] [place] [address] Care Team Providers Care Fire Prevention Captain Name Role Phone Unavailable Primary Care Provider Unavailabl e Encounter Details Date Type Department Care Team (Late st Contact Info) Description 04/16/2022 Transcribed Document [facility] Family Medicine [facility] [place] [address] ProviderPrasad MD [facility] [place] [address] Social History Tobacco Use Types Packs/Day Years Used Date Smoking Tobacco: Never Assessed Sex and Gender Information Value Date Recorded Sex Assigned at Not on file Legal Sex Male 10:05 AM CDT Gender Identity Not on file Sexual Orientation Not on file documented as of this encounter Miscellaneous Notes * Cerner Conversion Note - Historical ProviderMD - 04/16/2022 3:11 PM CDT Admission History, Adult Entered On: 04/16/2022 20:24 EDT Performed On: 04/16/2022 15:11 EDT by Zuleyma Klein Non Emp RN I Advance Directive Patient has Advance Directive *Q : No, patient refuses Advance Directive information Zuleyma Klein Non Emp RN I - 04/16/2022 20:24 EDT documented in this encounter Plan of Treatment Not on file documented as of this encounter Visit Diagnoses Not on filedocumented in this encounter
--- OUTSIDE RECORDS SUMMARY | 2025-04-14 17:06 | XMS_ITS | Encounter Summary ---
Author Organization [employer] ([place], [place], [place], [place]) Address [address] [place] [address] Care Team Providers Care Crusher Screen Repairer Name Role Phone Unavailable Primary Care Provider Unavailabl e Encounter Details Date Type Department Care Team (Late st Contact Info) Description 04/16/2022 Transcribed Document [facility] [place] Family Medicine [facility] [place] [address] ProviderPrasad MD [address] [place] [address] Social History Tobacco Use Types Packs/Day Years Used Date Smoking Tobacco: Never Assessed Sex and Gender Information Value Date Recorded Sex Assigned at Not on file Legal Sex Male 10:05 AM CDT Gender Identity Not on file Sexual Orientation Not on file documented as of this encounter Miscellaneous Notes * Cerner Conversion Note - Prasad Torre MD - 04/16/2022 7:54 PM CDT [place] [id number] KERWIN STOLL :1965 Visit Time:04/16/2022 Your Visit Summary Your Care Team Admitting Physician - HELENA LUJAN JR, MD-URO Attending Physician - HELENA LUJAN JR, MD-URO Primary Care Physician - ELLIS MOSQUEDA (REF), -[facility] Referring Physician - HELNEA LUJAN JR, MD-SARAI Your Diagnosis Acute kidney injury At risk for sleep apnea Hyperlipemia Other specified disorders of kidney and ureter, Other specified disorders of kidney and ureter, Other specified disorders of kidney and ureter, Other specified disorders of kidney and ureter, 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 Tobacco use disorder, continuous These Are Your Goals to be pain free Patient Discharge Goal Patient Discharge Goal: Home Discharge Vitals Temperature 38.3 ??C Heart Rate (Monitored) 88 Respiratory Rate 18 Blood Pressure 135/72 What to do next Instructions From Your Care Team Discharge Follow Up Instructions: Patient needs to have basic metabolic panel drawn on Wednesday through my officePatient should follow-up in the office for postoperative follow-up 2 to 3 weeks Activity: Discharge Activity: Activity as tolerated Diet: Discharge Diet: Resume usual diet as tolerated Follow-Up Appointments Follow Up with HELENA LUJAN When In 4 days 04/20/2022 EDT Comments for lab work in office, call for appointment Where: [address] [place] [address] [employer] (1) Follow Up with HELENA LUJAN When Within 1 to 2 weeks Comments follow up appointment Where: [address] [place] [address] [employer] (1) Medications What How Much When Instructions Next Dose acetaminophen (Tylenol 325 mg oral capsule) 1 Capsule(s) Oral Three Times A Day as needed for as needed for pain acetaminophen-hydrocodone (Heiskell 7.5 mg-325 mg oral tablet) 1 Tablet(s) Oral Every 4 Hours as needed for as needed for pain Pickup at [facility] as needed atorvastatin (atorvastatin 20 mg oral tablet) 1 Tablet(s) Oral Every Day docusate (Colace 100 mg oral capsule) 1 Capsule(s) Oral Two Times A Day Pickup at [facility] 04-16 2100 famotidine (Pepcid AC 10 mg oral tablet) 1 Tablet(s) Oral Every Day multivitamin (Multiple Vitamins oral tablet) 1 Tablet(s) Oral Every Day naproxen (Aleve) 220 Milligram(s) Oral Every 12 hours as needed for as needed for arthritis nitrofurantoin (Macrobid 100 mg oral capsule) 1 Capsule(s) Oral Two Times A Day Duration: 14 Day(s) Pickup at [facility] 04-16 2100 polyethylene glycol 3350 (MiraLax oral powder for reconstitution) 17 Gram(s) Oral Every Day Pickup at [facility] 04-17 0900 Pharmacy Information [facility] [address] [place] [address] [phone] Take your medications faithfully. Do NOT skip medication. Do NOT stop taking medications without the direction of a physician. Carry a list of your medications with you at all times, and take this medication list with you to your first follow up visit. Report any side effects. Avoid herbal remedies unless discussed with your physician. As part of your treatment plan, your physician may have prescribed a limited course of a controlled substance. This medication may be given to help people with moderate or severe pain or for other medical conditions, but there are risks involved with treatment. Common side effects may include nausea, constipation, drowsiness, sweating, itching, dry mouth, and rash. More serious side effects may include cognitive and motor impairment, like problems with thinking, concentrating, alertness, and movement (e.g. slowed reflexes), and driving and operating heavy machinery can be dangerous. It is important for you to talk to your physician if you have these side effects or questions. These controlled substances can produce physical dependence and be habit-forming if taken for an extended period of time, which means that the body has gotten used to them and may experience withdrawal symptoms if they are abruptly stopped. Withdrawal symptoms can include runny nose, sweating, goose bumps, diarrhea, abdominal cramping, rapid heartbeat, difficulty sleeping, and nervousness. Please dispose of unused and medications per your retail pharmacy guidance. Allergies Tape (Skin sensitivity) Immunizations This Visit No Immunizations Found Education Materials Minimally Invasive Nephrectomy Minimally invasive nephrectomy is [...] including vitamins, herbs, eye drops, creams, and evgd-uyt-pozayeb medicines. ??? Any problems you or family [...] Up to 2 hours before the procedure ??? you may continue to drink clear liquids, such as water, clear fruit juice, black coffee, and plain tea. Eating and drinking restrictions Follow instructions from your health care provider about eating and drinking, which may include: ??? 8 hours before the procedure ??? stop eating heavy meals or foods, such as meat, fried foods, or fatty foods. ??? 6 hours before the procedure ??? stop eating light meals or foods, such as toast or cereal. ??? 6 hours before the procedure ??? stop drinking milk or drinks that contain milk. ??? 2 hours before the procedure ??? stop drinking clear liquids. Medicines Ask your health care provider about: ??? Changing or stopping your regular medicines. This is especially important if you are taking diabetes medicines or blood thinners. ??? Taking medicines such as aspirin and ibuprofen. These medicines can thin your blood. Do not take these medicines unless your health care provider tells you to take them. ??? Taking jijn-mpg-xkzitny medicines, vitamins, herbs, and supplements. Surgery safety [...] provider. Document Revised: 12/30/2020 Document Reviewed: 12/30/2020 [employer] Patient Education ?? 2020 [employer] Minimally Invasive Nephrectomy, Care After This sheet [...] these instructions at home: Medicines ??? Take zcpb-kap-qwdupka and prescription medicines only as told by [...] keep your urine pale yellow. ? Take xzfw-wun-edbqguo or prescription medicines. ? Eat foods that [...] and water are not available, use hand lawn technician. ? Change your dressing as told by [...] Get up to take short walks every 1???2 hours. This is important to improve blood [...] and water are not available, use hand lawn technician. ??? Empty the drainage bag every 2???4 hours, or more often if needed. Do [...] day for signs of infection. ??? Take ekva-mtd-sgyhihf and prescription medicines only as told by [...] provider. Document Revised: 12/30/2020 Document Reviewed: 12/30/2020 [employer] Patient Education ?? 2020 [employer]. Acute Kidney Injury, Adult Acute kidney injury [...] these instructions at home: Medicines ??? Take rmsj-iob-kramasr and prescription medicines only as told by [...] important. Where to find more information ??? Citizen Of [place] Association of Kidney Patients: www.aakp.org ??? National Kidney Foundation: www.kidney.org ??? Citizen Of The [place] Kidney Fund: www.akfinc.org ??? [facility] [...] provider. Document Revised: 07/16/2020 Document Reviewed: 07/16/2020 [employer] Patient Education ?? 2020 [employer]. Emergency Awareness and Preventative Care STROKE is an EMERGENCY Every Minute Counts Act FAST and Check for these signs: FACE Does the face look uneven? ARM Does one arm drift down? SPEECH Does their speech sound strange? TIME Call at any sign of stroke Stroke Risk Factors Atrial Fibrillation (irregular heartbeat) Diabetes Family history of stroke Heart Disease Heavy alcohol use High Blood Pressure High Cholesterol Physical inactivity and obesity Smoking Cigarette Smoking The facts are clear, cigarette smoking will shorten your life. Smoking can cause many illnesses along the way. As a healthcare provider, we recommend that you stop smoking. Assistance with quitting is available by contacting 1-545-WNPH-NOW. This is a free resource providing counseling, support, and referral. Or you may contact your personal physician. National Suicide Prevention Lifeline: The National Suicide Prevention Lifeline is a national network of local crisis centers that provides free and confidential emotional support to people in suicidal crisis or emotional distress 24 hours a day, 7 days a week. Don't Wait! Stop a Heart Attack Before it Starts What is a heart attack? A heart attack is damage or to a part of the heart from severely decreased or lack of blood flow to the heart. Over time, arteries can become narrow from the buildup of fat and cholesterol, which is called plaque. The plaque can rupture causing a blood clot to form. When the blood clot forms, the artery can become severely narrowed or completely blocked, causing a heart attack. Heart attack is the leading cause of in the [place]. 85% of muscle damage occurs within the first 2 hours. Delay in the recognition of heart attack symptoms increases the chances of . Know the early symptoms of a heart attack: Nausea Feeling of fullness in chest Jaw Pain Pain that travels down one or both arms Fatigue/being tired Anxiety Back Pain Chest pressure, squeezing, or discomfort Shortness of breath Sweating, or a cold sweat Feeling of impending doom There are unusual signs of a heart attack, too! Women, the elderly, and diabetics may present with atypical symptoms: Fainting/dizziness Weakness Confusion Risk Factors for a Heart Attack Some heart disease risk factors, such as age and family history, cannot be changed. Others, like smoking and lack of exercise, can be changed. Smoking High Cholesterol High Blood Pressure Family History Obesity Age Gender (Males are at higher risk) Lack of Exercise Diabetes Diet Stress Excessive Alcohol Intake If you or someone you know is experiencing the signs and symptoms of a heart attack, DON???T DELAY. Call immediately and seek help. If someone collapses, perform CPR! Do not attempt to drive if you are having symptoms of heart attack. Hands-Only CPR Why Hands-Only CPR? Hands-Only CPR has been shown to be as effective as conventional CPR for cardiac arrests that occur outside of a hospital. Survival depends on immediately receiving CPR from someone nearby. How do you perform Hands-Only CPR? There are two easy steps: Call if you see a teen or adult collapse Push hard and fast in the center of the chest at a beat of 100 beats per minute. Save a life! 4 WAYS TO GET AHEAD OF SEPSIS SEPSIS is a MEDICAL EMERGENCY. Time matters! Infections put you and your family at risk for a life-threatening condition called sepsis. Sepsis is the body's extreme response to an infection. It is life-threatening, and without timely treatment, sepsis can rapidly lead to tissue damage, organ failure, and . Sepsis happens when an infection you already have-in your skin, lungs, urinary tract or somewhere else-triggers a chain reaction throughout your body. 1 PREVENT INFECTIONS Take good care of chronic conditions. Talk to your doctor about getting the recommended vaccines. 2 PRACTICE GOOD HYGIENE Wash your hands frequently. Keep cuts or open sores clean and covered until they are healed. 3 KNOW THE SYMPTOMS Confusion or disorientation Shortness of breath High heart rate Fever, shivering, or feeling very cold Extreme pain or discomfort Clammy or sweaty skin 4 ACT FAST Get medical care IMMEDIATELY if you suspect sepsis or if you have an infection that is not getting better or is getting worse. To learn more about sepsis and how to prevent infections, visit www.cdc.gov/sepsis. Test Results Laboratory or Other Results This Visit (last charted value for your 04/16/2022 visit) Hematology 04/16/2022 4:50 AM Hct: 39.5 % -- Normal range between ( 40.1 and 51.0 ) Hgb: 13.2 Gram/dL -- Normal range between ( 13.7 and 17.5 ) 04/15/2022 3:28 AM WBC: 19.9 K/uL -- Normal range between ( 3.9 and 10.0 ) RBC: 4.40 Million/uL -- Normal range between ( 4.63 and 6.08 ) Platelet Count: 297 K/uL -- Normal range between ( 163 and 369 ) MCH: 32.0 pg -- Normal range between ( 25.6 and 32.2 ) MCHC: 34.1 Gram/dL -- Normal range between ( 32.3 and 36.5 ) MCV: 93.9 fL -- Normal range between ( 79.0 and 94.8 ) Slide Review: No Eos %: 0.0 % -- Normal range between ( 1.0 and 7.0 ) [place] #: 0.66 K/uL -- Normal range between ( 0.24 and 0.82 ) Eos #: 0.00 K/uL -- Normal range between ( 0.04 and 0.54 ) [place] %: 3.3 % -- Normal range between ( 4.7 and 12.5 ) Baso %: 0.1 % -- Normal range between ( 0.0 and 1.0 ) Baso #: 0.02 K/uL -- Normal range between ( 0.01 and 0.08 ) RDW: 12.3 % -- Normal range between ( 11.6 and 14.4 ) Neut %: 92.3 % -- Normal range between ( 34.0 and 71.0 ) Neut #: 18.36 K/uL -- Normal range between ( 1.56 and 6.13 ) Lymph %: 3.9 % -- Normal range between ( 19.3 and 53.0 ) Lymph #: 0.78 K/uL -- Normal range between ( 1.18 and 3.74 ) MPV: 11.1 fL -- Normal range between ( 9.4 and 12.4 ) IG#: 0 x10(3)/uL IG%: 0 % -- Normal range between ( 0 and 1 ) Blood Bank 04/14/2022 10:36 AM ABO/Rh: A POS Antibody Screen (Tube): Negative ABSC 04/14/2022 9:57 AM ABO/Rh Repeat: A POS General Chemistry 04/16/2022 4:50 AM Creatinine Level: 1.54 mg/dL -- Normal range between ( 0.70 and 1.30 ) Sodium Level: 138 mmol/L -- Normal range between ( 136 and 146 ) Potassium Level: 4.0 mmol/L -- Normal range between ( 3.5 and 5.1 ) Chloride Level: 105 mmol/L -- Normal range between ( 102 and 112 ) Carbon Dioxide Level: 27 mmol/L -- Normal range between ( 21 and 32 ) Anion Gap: 10 -- Normal range between ( 9 and 20 ) Bilirubin Total: 1.4 mg/dL -- Normal range between ( 0.2 and 1.3 ) A/G Ratio: 1.1 -- Normal range between ( 1.1 and 2.5 ) ALT: 57 Units/Liter -- Normal range between ( 12 and 78 ) AST: 37 Units/Liter -- Normal range between ( 5 and 37 ) Globulin: 2.7 Gram/dL -- Normal range between ( 1.5 and 4.5 ) Alk Phos: 81 Units/Liter -- Normal range between ( 27 and 136 ) Bun/Creatinine: 8.4 -- Normal range between ( 8.0 and 20.0 ) Calcium Level: 8.0 mg/dL -- Normal range between ( 8.5 and 10.1 ) eGFR : 57 mL/min/1.73m2 eGFR NonAfrican: 47 mL/min/1.73m2 Glucose Level: 132 mg/dL -- Normal range between ( 74 and 106 ) Blood Urea Nitrogen: 13 mg/dL -- Normal range between ( 7 and 22 ) Protein Total: 5.7 Gram/dL -- Normal range between ( 6.4 and 8.2 ) Albumin Level: 3.0 Gram/dL -- Normal range between ( 3.4 and 5.0 ) Coagulation 04/09/2022 2:12 PM INR: 1.0 -- Normal range between ( 0.9 and 1.1 ) PTT: 26.1 Second(s) -- Normal range between ( 24.2 and 31.8 ) PT: 10.0 Second(s) -- Normal range between ( 9.6 and 11.5 ) Patient Name:KERWIN STOLL I have received and understand this information and was given the opportunity to ask questions. Patient/Rn Midwife Name: Patient/Rn Midwife Signature: Relationship to Patient: Clinician/Hospital Rn Midwife Signature: Date: documented in this encounter Plan of Treatment Not on file documented as of this encounter Visit Diagnoses Not on filedocumented in this encounter
--- OUTSIDE RECORDS SUMMARY | 2025-04-14 17:06 | XMS_ITS | Encounter Summary ---
Author Organization [employer] ([place], [place], [place], [place]) Address [address] [place] [address] Care Team Providers Care Stick Roller Name Role Phone Unavailable Primary Care Provider Unavailabl e Encounter Details Date Type Department Care Team (Late st Contact Info) Description 04/16/2022 Transcribed Document [facility] [place] [facility] [address] ProviderPrasad MD [facility] [address] Social History Tobacco Use Types Packs/Day Years Used Date Smoking Tobacco: Never Assessed Sex and Gender Information Value Date Recorded Sex Assigned at Not on file Legal Sex Male 10:05 AM CDT Gender Identity Not on file Sexual Orientation Not on file documented as of this encounter Miscellaneous Notes * Cerner Conversion Note - Prasad ProviderMD - 04/16/2022 3:08 PM CDT UM Authorization Entered On: 04/16/2022 15:09 EDT Performed On: 04/16/2022 15:08 EDT by Ronda Roberts Rn-Utilization Review Primary Insurance Authorization Authorization and Policy Numbers : Insurance 1 Health Plan: [employer] Policy Number: [id number] Authorization Number: Insurance Primary Name : [employer] Policy Number: [id number] Authorization Status-Primary : Awaiting callback Reference Number-Primary : [id number] Authorized Service Begin Date-Primary : 04/14/2022 EDT Authorization Comments-Primary : Auth initiated on [employer], clinicals faxed via [employer] Historical Authorization Comments-Primary : No Authorization Comments Found Ronda Roberts Rn-Utilization Review - 04/16/2022 15:08 EDT documented in this encounter Plan of Treatment Not on file documented as of this encounter Visit Diagnoses Not on filedocumented in this encounter
--- OUTSIDE RECORDS SUMMARY | 2025-04-14 17:06 | XMS_ITS | Encounter Summary ---
Author Organization [employer] ([place], [place], [place], [place]) Address [address] [place] [address] Care Team Providers Care Western Philosophy Professor Name Role Phone Unavailable Primary Care Provider Unavailabl e Encounter Details Date Type Department Care Team (Late st Contact Info) Description 04/16/2022 Transcribed Document [facility] [place] Family Medicine [facility] [place] [address] ProviderPrasad MD [address] [place] [address] Social History Tobacco Use Types Packs/Day Years Used Date Smoking Tobacco: Never Assessed Sex and Gender Information Value Date Recorded Sex Assigned at Not on file Legal Sex Male 10:05 AM CDT Gender Identity Not on file Sexual Orientation Not on file documented as of this encounter Miscellaneous Notes * Cerner Conversion Note - Prasad ProviderMD - 04/16/2022 3:16 PM CDT On Going Discharge Planning Entered On: 04/16/2022 15:17 EDT Performed On: 04/16/2022 15:16 EDT by Kathy Moore RN Care Management Progress Note Discharge Arrangements [...] Sent to Post Acute Providers : No [facility] Quality Web Info Shared w Pt/Fam : No Does the Patient have a Floor to SNF Benefit? : No Referral Indicators For Complex SWK Interventions : Other: none Is the Patient Meeting Medical Necessity : Yes Physician Agreeable to Move Forward with D/C Plan? : Yes Did you Attend Multidisciplinary Rounds? : Yes Kathy Moore RN - 04/16/2022 15:16 EDT Narrative Progress Note Narrative Progress Note : Per MDR's the pt with worsening renal function and will reassess tomorrow. CM will continue to follow. Plan: Home with spouse transporting. OUT. Low. Historical Progress Note : 57 y/o male s/p [...] transport patient home. CLAUDINE OTERO RN - 04/15/22 10:28:53 Kathy Moore RN - 04/16/2022 15:16 EDT Electronically signed by [facility] Conversion Dinner Cook Cerner at 01/05/2023 10:50 PM CDT documented in this encounter Plan of Treatment Not on file documented as of this encounter Visit Diagnoses Not on filedocumented in this encounter
--- OUTSIDE RECORDS SUMMARY | 2025-04-14 17:06 | XMS_ITS | Encounter Summary ---
Author Organization [employer] ([place], [place], [place], [place]) Address [address] [place] [address] Care Team Providers Care Educational Assistant Name Role Phone Unavailable Primary Care Provider Unavailabl e Encounter Details Date Type Department Care Team (Late st Contact Info) Description 04/16/2022 Transcribed Document [facility] [place] [facility] [place] [address] ProviderPrasad MD [address] [place], [place] [address] Social History Tobacco Use Types Packs/Day Years Used Date Smoking Tobacco: Never Assessed Sex and Gender Information Value Date Recorded Sex Assigned at Not on file Legal Sex Male 10:05 AM CDT Gender Identity Not on file Sexual Orientation Not on file documented as of this encounter Miscellaneous Notes * Cerner Conversion Note - Prasad ProviderMD - 04/16/2022 6:02 PM CDT Spiritual Care Short Form Entered On: 04/16/2022 18:05 EDT Performed On: 04/16/2022 18:02 EDT by MARIE MUÑOZ General Information, Spiritual Care Spiritual Care Referred by : Machine Icer initiated Reason for Visit : Initial Ministry Provided to : Patient Intervention/Comment/Summary Points : Mr. Schultz had a mass removed from his kidney. He thinks it's benign, but the results have not yet come back. He is Hinduism, and a member of [facility] [employer] in [place], [place]. Spiritual/Emotional Acuity : Medium Spiritual Framework : Integrated, provides strength/resource Evangelical Preference : Hinduism, Yunior Machine Icer Follow-up Needed : MARIE Broderick - 04/16/2022 18:02 EDT documented in this encounter Plan of Treatment Not on file documented as of this encounter Visit Diagnoses Not on filedocumented in this encounter
--- OUTSIDE RECORDS SUMMARY | 2025-04-14 17:06 | XMS_ITS | Encounter Summary ---
Author Organization [employer] ([place], [place], [place], [place]) Address [address] [place] [address] Care Team Providers Care Retail District Manager Name Role Phone Unavailable Primary Care Provider Unavailabl e Encounter Details Date Type Department Care Team (Late st Contact Info) Description 04/09/2022 Transcribed Document [facility] [place] [facility] [place] [address] ProviderPrasad MD [facility] [place] [address] Social History Tobacco Use Types Packs/Day Years Used Date Smoking Tobacco: Never Assessed Sex and Gender Information Value Date Recorded Sex Assigned at Not on file Legal Sex Male 10:05 AM CDT Gender Identity Not on file Sexual Orientation Not on file documented as of this encounter Miscellaneous Notes * Cerner Conversion Note - Prasad ProviderMD - 04/09/2022 2:03 PM CDT Patient: KERWIN SCHULTZ Age: 57 Years Sex: Male : 1965 Chief Complaint Renal mass Primary Care Provider ELLIS MOSQUEDA (REF)[facility] History of Present Illness 57 year old male with PMH of HLD, GERD, OA, tobacco abuse and recently discovered renal mass who presents for preop clearance. He underwent CT scan imaging following lung cancer screening CT in January 2022. CT chest was negative; however, there was an incident finding of a renal mass. CT A/P was then obtained on 03/05/22 showing a 2.2 cm upper pole right renal mass consistent with renal cell carcinoma. He was then referred and evaluated by . He was offered a right robotic partial nephrectomy and agreed to the procedure. He reports being asymptomatic and denies fever, chills, flank pain, hematuria. Pt denies any history of DVT/PE , ANGEL or COPD. Pt denies any problems with anesthesia in the past Review of Systems Constitutional: No fevers, chills, sweats Eye: No recent visual problems, eye discharge, eye pain, redness HEENT: No ear pain, nasal congestion, sore throat, voice changes Respiratory: No shortness of breath, cough, pain on breathing, sputum production Cardiovascular: No Chest pain, palpitations, syncope, shortness of breath while laying flat Gastrointestinal: No nausea, vomiting, diarrhea, constipation Genitourinary: No hematuria, dysuria, incontinence, lesions on genitalia Omari/Lymph: Negative for bruising tendency, swollen lymph glands, nosebleeds, history of anticoagulation Endocrine: Negative for excessive thirst, excessive hunger, excessive urination, heat or cold intolerance Musculoskeletal: No back pain, neck pain, joint pain, muscle pain, decreased range of motion Integumentary: No rash, pruritus, abrasions, lesions Neurologic: No weakness, numbness, frequent headaches, tremors, blackouts Psychiatric: No anxiety, depression, mood changes, hallucinations Vital Signs T: 37.3 ??C HR: 86 RR: 18 BP: 136/87 SpO2: 97% HT: 180.34 cm WT: 90.91 kg BMI: 28 Oxygen Settings (Last) Oxygen Therapy Mode: Room air (04/09/22 14:25:00) Physical Exam General: Alert and oriented, well nourished, no acute distress. Neurologic: Awake, alert, and oriented X3, CN II-XII intact. Eye: PERRL, EOMI, normal conjuctiva. HENT: Normocephalic, clear tympanic membranes, normal hearing, moist oral mucosa, no scleral icterus, no sinus tenderness. Neck: Supple, non-tender, no carotid bruits, no JVD, no lymphadenopathy. Lungs: Clear to auscultation and percussion, non-labored respiration. Heart: Normal rate, regular rhythm, no murmur, gallop or edema. Abdomen: Soft, non-tender, non-distended, normal bowel sounds, no masses. Musculoskeletal: Normal range of motion and strength, no tenderness or swelling. Skin: Skin is warm, dry and pink, no rashes or lesions. Psychiatric: Cooperative, appropriate mood and affect. Assessment/Plan 1. Preop clearance - Pt has no active cardiac conditions and no clinical risk factors. Patient with METs 4-10. RCRI score = 0, which indicates a 0.4% chance of a major cardiac event during surgery. Pt is low risk for intermediate risk surgery. EKG shows NSR. No further cardiac testing recommended prior to surgery. Patient is medically optimized at this point. Pt should proceed with surgery as scheduled on 04/14/22 with . 2. Right sided renal mass - proceed with surgery as above 3. HLD - continue home atorvastatin. 4. GERD - continue omeprazole. 5. Lung nodule - noted on CT chest 02/13/22. Continue with surveillance CT in 12 months. 6. Personal history of tobacco abuse - counseled o Problem List/Past Medical History Ongoing At risk for sleep apnea Cancer Kidney Hyperlipemia Osteoarthritis Procedure/Surgical History Appendectomy, Colonoscopy. Home Medications (5) Active Aleve 220 mg, PRN, Oral, Q12H atorvastatin 20 mg oral tablet 20 mg = 1 Tab, Oral, Daily Multiple Vitamins oral tablet 1 Tab, Oral, Daily Pepcid AC 10 mg oral tablet 10 mg = 1 Tab, Oral, Daily Tylenol 325 mg oral capsule 325 mg = 1 Cap, PRN, Oral, TID Allergies Tape (Skin sensitivity) Social History Alcohol Alcohol Use History Yes. Alcohol Use Frequency Monthly. Substance Abuse Drug Use Hx: No. Use in Last 12 Months: No. Tobacco 10 or more cigarettes (1/2 pack or more)/day in last 30 days Smoking Status. Family History Mother with PMH of ovarian cancer. Father with no significant PMH. Immunizations COVID is UTD Flu is NUTD Diagnostic Results EKG showed NSR CT Chest 02/13/22: small stable nodule along the right minor fissure. Modifier S: right renal lesion. Recommend US as initial evaluation. Lung RADS category 2. Recommend 12 month follow up. Lab Results Electrolytes(BMP) Results (Current Encounter/Past 24 Hours) Sodium Level 140 mmol/L 04/09/2022 16:12 Potassium Level 3.2 mmol/L LOW 04/09/2022 16:12 Chloride Level 108 mmol/L 04/09/2022 16:12 Carbon Dioxide Level 26 mmol/L 04/09/2022 16:12 Anion Gap 9 04/09/2022 16:12 Blood Urea Nitrogen 12 mg/dL 04/09/2022 16:12 Glucose Level 134 mg/dL HI 04/09/2022 16:12 Calcium Level 9.0 mg/dL 04/09/2022 16:12 Creatinine Level 1.22 mg/dL 04/09/2022 16:12 CBC Results (Current Encounter/Past 24 Hours) WBC 9.6 K/uL 04/09/2022 16:05 Hct 43.4 % 04/09/2022 16:05 Hgb 14.6 Gram/dL 04/09/2022 16:05 Platelet Count 340 K/uL 04/09/2022 16:05 CMP Results (Current Encounter/Past 24 Hours) Creatinine Level 1.22 mg/dL 04/09/2022 16:12 Bun/Creatinine 9.8 04/09/2022 16:12 eGFR >60 mL/min/1.73m2 04/09/2022 16:12 eGFR NonAfrican >60 mL/min/1.73m2 04/09/2022 16:12 Sodium Level 140 mmol/L 04/09/2022 16:12 Potassium Level 3.2 mmol/L LOW 04/09/2022 16:12 Chloride Level 108 mmol/L 04/09/2022 16:12 Carbon Dioxide Level 26 mmol/L 04/09/2022 16:12 Anion Gap 9 04/09/2022 16:12 Blood Urea Nitrogen 12 mg/dL 04/09/2022 16:12 Glucose Level 134 mg/dL HI 04/09/2022 16:12 Calcium Level 9.0 mg/dL 04/09/2022 16:12 Coagulation Results (Current Encounter/Past 24 Hours) PT 10.0 Second(s) 04/09/2022 16:11 PTT 26.1 Second(s) 04/09/2022 16:11 INR 1.0 04/09/2022 16:11 Creatinine Clearance (Current Encounter/Past 24 Hours) Creatinine Level 1.22 mg/dL 04/09/2022 16:12 Bun/Creatinine 9.8 04/09/2022 16:12 Estimated Creatinine Clearance 72.87 mL/Min 04/09/2022 16:12 documented in this encounter Plan of Treatment Not on file documented as of this encounter Visit Diagnoses Not on filedocumented in this encounter
--- OUTSIDE RECORDS SUMMARY | 2025-04-14 17:06 | XMS_ITS | Encounter Summary ---
Author Organization [employer] ([place], [place], [place], [place]) Address [address] [place] [address] Care Team Providers Care Electronic Parts Salesperson Name Role Phone Unavailable Primary Care Provider Unavailabl e Encounter Details Date Type Department Care Team (Late st Contact Info) Description 04/14/2022 Transcribed Document [facility] [place] [facility] [place] [address] ProviderPrasad MD [address] [place] [address] Social History Tobacco Use Types Packs/Day Years Used Date Smoking Tobacco: Never Assessed Sex and Gender Information Value Date Recorded Sex Assigned at Not on file Legal Sex Male 10:05 AM CDT Gender Identity Not on file Sexual Orientation Not on file documented as of this encounter Miscellaneous Notes * Cerner Conversion Note - Prasad ProviderMD - 04/14/2022 2:34 PM CDT Patient: KERWIN CSHULTZ Age: 57 Years Sex: Male : 1965 *Operation Robotic assisted laparoscopic right partial nephrectomy with intraoperative ultrasound Indication for Surgery 57-year-old gentleman with suspicious upper pole right renal mass. He presents today for partial nephrectomy understanding risk benefits and alternatives. He gives his full consent. *Preoperative Diagnosis Right renal mass *Postoperative Diagnosis Right renal mass *Surgeon(s) Jennifer *Procedure Narrative After consent is obtained patient's brought to the operating suite where she is placed in supine position. anesthesia was induced. He was placed in the right side up modified flank position padding all pressure points. Veress needle technique is used at the umbilicus to create pneumoperitoneum. A millimeter blunt Visiport is used in the right upper quadrant to establish a camera trocar site. The remainder of the robotic and assistant manager retail trochars were placed under direct vision. Robot is docked. Began the operation by reflecting the ascending colon, hepatic flexure of the colon medially. Murali maneuver was performed to dissect the duodenum away from the vena cava. Renal vein and renal artery were identified single renal artery was dissected out and prepared for bulldog clamping. We then dissected down through Gerota's fascia onto the renal capsule. We mobilized the kidney completely given the tumor's location in the posterior upper pole. We were able to flip the kidney over and see the tumor quite nicely. Intraoperative ultrasound was performed showing a cystic renal mass with solid-appearing septae. Bulldog clamp was placed on the single renal artery. Mannitol was given. We excised the cystic renal mass with gross negative margins. Warm ischemia time was 17 minutes. We repaired the excision site by running a 2-0 Vicryl across the base of the defect. We then completed the repair of the excision site using interrupted 0 Vicryl suture and sliding Hemolock technique. Hemostasis was excellent. Bulldog clamp was removed from the artery. Amniotic tissue was used for healing purposes. Tisseel was placed. Drain was brought in through the right most lateral trocar site and placed in the paracolic gutter. Under laparoscopic guidance we removed all of our trochars. We enlarged the fascial defect at the umbilicus and delivered our specimen within the specimen sac. As we deliver the specimen it did the cyst did rupture within the specimen sac. All incisions were irrigated. Subcutaneous tissues brought together using 3-0 Vicryl. Fascial defect at the umbilicus was closed using PDS suture. All incisions were irrigated. Subcu Dermabond was used. Drain was secured. Silvestre catheter secured. Anesthesia was reversed. Patient was taken to recovery in stable condition. *Estimated Blood Loss Less than 500 cc *Findings Cystic renal mass, right *Specimen(s) Cystic renal mass Date of Service Date/Time of Service SN - Proc - Start Time: 04/14/22 13:08:00 (04/14/22 13:23:31) documented in this encounter Plan of Treatment Not on file documented as of this encounter Visit Diagnoses Not on filedocumented in this encounter
--- OUTSIDE RECORDS SUMMARY | 2025-04-14 17:06 | XMS_ITS | Encounter Summary ---
Author Organization [employer] ([place], [place], [place], [place]) Address [address] [place] [address] Care Team Providers Care Pipe Blanks Cut Off Saw Operator Name Role Phone Unavailable Primary Care Provider Unavailabl e Encounter Details Date Type Department Care Team (Late st Contact Info) Description 04/17/2022 Transcribed Document [facility] [place] [facility] [place] [address] ProviderPrasad MD [facility] [place] [address] Social History Tobacco Use Types Packs/Day Years Used Date Smoking Tobacco: Never Assessed Sex and Gender Information Value Date Recorded Sex Assigned at Not on file Legal Sex Male 10:05 AM CDT Gender Identity Not on file Sexual Orientation Not on file documented as of this encounter Miscellaneous Notes * Cerner Conversion Note - Prasad ProviderMD - 04/17/2022 11:24 AM CDT UM Authorization Entered On: 04/17/2022 11:25 EDT Performed On: 04/17/2022 11:24 EDT by MARYLOU MAHAN RN-Utilization Review Primary Insurance Authorization Authorization and Policy Numbers : Insurance 1 Health Plan: [employer] Policy Number: [id number] Authorization Number: Insurance Primary Name : [employer] Policy Number: [id number] Authorization Status-Primary : Admit approved Reference Number-Primary : [id number] Authorization Number-Primary : [id number] Number of Days Authorized-Primary : 2 Day(s) Authorized Service Begin Date-Primary : 04/16/2022 EDT Authorized Service End Date-Primary : 04/14/2022 EDT Authorization Comments-Primary : [employer] auth approved per availity Historical Authorization Comments-Primary : Comment 1: Auth initiated on [employer], clinicals faxed via [employer] (Ronda Roberts Rn-Utilization Review 04/16/2022 15:08) MARYLOU MAHAN RN-Utilization Review - 04/17/2022 11:24 EDT documented in this encounter Plan of Treatment Not on file documented as of this encounter Visit Diagnoses Not on filedocumented in this encounter
--- OUTSIDE RECORDS SUMMARY | 2025-04-14 17:06 | XMS_ITS | Encounter Summary ---
Author Organization [employer] ([place], [place], [place], [place]) Address [address] [place] [address] Care Team Providers Care Prosthetic Aide Name Role Phone Unavailable Primary Care Provider Unavailabl e Encounter Details Date Type Department Care Team (Late st Contact Info) Description 04/14/2022 Transcribed Document [facility] [place] [facility] [place] [address] ProviderPrasad MD [address] [place] [address] Social History Tobacco Use Types Packs/Day Years Used Date Smoking Tobacco: Never Assessed Sex and Gender Information Value Date Recorded Sex Assigned at Not on file Legal Sex Male 10:05 AM CDT Gender Identity Not on file Sexual Orientation Not on file documented as of this encounter Miscellaneous Notes * Cerner Conversion Note - Prasad ProviderMD - 04/14/2022 12:14 PM CDT Peripheral Nerve Block Entered On: 04/14/2022 12:17 EDT Performed On: 04/14/2022 12:14 EDT by Brandy Sullivan RN Peripheral Nerve Block Peripheral Nerve Block Start Date/Time : 04/14/2022 12:15 EDT Verbally Confirm Pt, Site, and Procedure : Yes Time Out Pause Time : 04/14/2022 12:14 EDT Site Marked and Visible : Yes Site Preparation : Chlorhexidine (Hibiclens) Peripheral Nerve Block : Tap Block Laterality : Left Peripheral Nerve Block Performed by : GE GONZALEZ MD Peripheral Nerve Block Performed by 2 : Rahul Conroy Non [facility] Student Nurse Laundry Machine Operator Medication Delivery Method : Single Shot Peripheral Nerve Block Assisted by : Karely Gooden RN Peripheral Nerve Block Assisted by 2 : Brandy Sullivan RN Ultra sound used during insertion : Yes Nerve Block Activity, Patient Tolerance : Good Peripheral Nerve Block End Date/Time : 04/14/2022 12:17 EDT Brandy Sullivan RN - 04/14/2022 12:16 EDT Electronically signed by Allison, [facility] Conversion [employer] Tile Shader Cerner at 01/05/2023 10:33 PM CDT documented in this encounter Plan of Treatment Not on file documented as of this encounter Visit Diagnoses Not on filedocumented in this encounter
[2025-04-14] MEDS: TET/DIPHTH/PERT-ADULT 0.5ML SYRINGE 0.5 ML IM (17:11)
[2025-04-14] MEDS: ACETAMINOPHEN 500MG TAB 1000 MG PO (17:11)
[2025-04-14 17:23] VITALS: BP 119/78; PULSE 71; RESP 16; TEMP 36.7; O2SAT 97
[2025-04-14] MEDS: LIDOCAINE 2% UROJET 10ML TP (17:58)
[2025-04-14] MEDS: COCAINE 4% TOPICAL SOLN 4ML BOTTLE 1 ML TP (17:58)
--- NOTE | 2025-04-14 19:35 | HMH.EDGENADL ---
Discharge Plan Disposition Patient Disposition: Home, Self-Care Condition: Good Prescriptions Prescriptions: No Action famotidine [Pepcid AC] 20 mg tablet 20 mg PO DAILY atorvastatin 20 MG tablet 20 mg PO HS Referrals Follow up/Referrals: Thai Peres MD [Primary Care Provider, Medical] - See instructions Activity Restrictions/Add. Instructions Additional Instructions/Restrictions: You were evaluated in the emergency department today. At this time, your CT scan is reassuring. Your laceration was repaired with alexy. These will need to be removed in 10 to 14 days. Keep your wound clean and dry. Do not submerge underwater. It is okay if it gets wet in the shower, but pat to dry. Follow-up with your primary care provider for recheck. Return to the emergency department for new or worsening symptoms. Clinical Impressions Clinical Impression: Laceration of scalp Instructions Patient Instructions: DI for Laceration Repair of the Scalp Print Language Print Language: Vietnamese Discharge ED Provider: Sameera Elizabeth General Adult HPI General Chief complaint: Head Injury Stated complaint: A/O 03-15 1245 hit head on tractor Time Seen by Provider: 04/14/25 16:54 Mode of Arrival: Ambulatory Source of Information: Patient Description of Symptoms (Recalled from ER Triage Doc. by RN): Pt reports this afternoon he hit his head on tractor bucket and has laceration to head. Pt denies LOC and - for BT. Pt reports mild head ache since this happened. History of Present Illness HPI narrative: This patient is a 60-year-old male who denies significant past medical history presenting to the emergency department for evaluation with concern for head injury. Patient reports that he struck his head on a tractor bucket when getting off the tractor. He did not hit his head or lose consciousness. He is had a mild headache since then and did suffer a wound to his head. He did not take blood thinner or aspirin. He is not sure when his last tetanus shot was. Related Data Home Medications ?Medication ?Instructions ?Recorded ?Confirmed atorvastatin 20 mg tablet 20 mg PO HS Cholesterol 04/01/21 05/27/23 famotidine 20 mg tablet (Pepcid AC) 20 mg PO DAILY GERD 06/24/22 05/27/23 Allergies Allergy/AdvReac Type Severity Reaction Status Date / Time No Known Allergies Allergy Verified 05/27/23 15:57 [facility] Disclaimer: The information contained in this section may have been updated after the patient was seen, as this information can be updated by other users. Medical History Diastolic dysfunction ANGEL (obstructive sleep apnea) Cancer Hyperlipidemia Surgical History History of partial nephrectomy History of appendectomy Family History Other Stroke Social History Smoking Status: Current every day smoker tobacco type: cigarettes packs per day: 1 second hand exposure: Yes alcohol intake: current alcohol intake frequency: a few times a month substance use type: denies use current occupational status: employed Travel in the last 8 weeks?: None household members: spouse housing: house marital status: current occupation: [employer] current occupational exposures/hazards: No caffeine: Yes Have you lived/traveled outside US in past 30 days?: No Contact w/someone who lives/traveled outside US past 30 days?: No Exposure to someone with infectious disease in past 14 days?: No Do you have a fever (greater than 100.4 F or 38 C)?: No Have you tested positive for COVID-19?: No Exposed to someone with COVID-19 in past 14 days?: No Do you have a sore throat?: No Do you have a cough?: No Do you have any weakness?: No Do you have any diarrhea?: No Are you experiencing any unusual bleeding?: No Do you have any muscle aches/pain?: No Do you have any abdominal pain?: No Are you experiencing loss of taste or smell?: No Other Medical History Have you received the Flu Vaccine for this season: Yes Have you received the Pneumonia Vaccine: No ROS Obtained: Yes All systems reviewed & no additional complaints except as documented Physical Exam General General appearance: alert, in no apparent distress and obese Head Head exam: normocephalic Expanded Head Exam Head image:  1. 4 cm flap laceration Eye Eye exam: Present normal appearance, PERRL and EOMI ENT ENT exam: Present normal exam, normal oropharynx, mucous membranes moist and normal external ear exam Neck Neck exam: Present normal inspection, full ROM and trachea midline; Absent tenderness Chest Chest inspection: Present normal inspection and symmetric chest wall rise; Absent tenderness Respiratory Respiratory exam: Present normal lung sounds bilaterally; Absent respiratory distress, wheezes, stridor or accessory muscle use Cardiovascular Cardiovascular exam: Present regular rate and normal rhythm Abdominal Exam Abdominal exam: Present soft; Absent distention, tenderness or guarding Extremities Exam Extremities exam: Present normal inspection, full ROM and normal capillary refill; Absent tenderness or edema Back Exam Back exam: Present normal inspection and full ROM; Absent tenderness Neurological Exam Neurological exam: Present alert, oriented X3, CN II-XII intact and normal gait; Absent motor sensory deficit Psychiatric Psychiatric exam: Present normal affect and normal mood Skin Skin exam: Present warm and dry Medical Decision Making Medical Records Medical records reviewed: Yes I reviewed the patient's medical records. Screening: Per USPSTF and CDC recommendations, given the prevalence of disease in our region, it is our hospital?s policy to screen for HIV and viral Hepatitis for all patients aged 18 and over and those with ongoing risk factors. Nathan Inquiry Pt receiving controlled substance: No Vital Signs: 04/14/25 17:00 04/14/25 17:23 Temperature 98.1 F 98.1 F Temperature Source Oral Oral Pulse Rate 71 Pulse Rate [Left] 71 Respiratory Rate 18 16 Blood Pressure 119/78 Blood Pressure [Right Arm] 134/78 Blood Pressure Mean [Right Arm] 96 Blood Pressure Source Automatic Cuff Blood Pressure Source [Right Arm] Automatic Cuff Blood Pressure Position Sitting 02 Sat by Pulse Oximetry 97 Oxygen Delivery Method Room Air Room Air Lab Data Lab results reviewed: Yes I reviewed the patient's lab results. Orders (Tests/Meds): ED MEDICATIONS Discontinued Medications Generic Name Dose Route Start Last Admin Trade Name Shania PRN Reason Stop Dose Admin Acetaminophen 1,000 mg 04/14/25 17:08 04/14/25 17:11 Acetaminophen 500mg Tab PO 04/14/25 17:09 1,000 mg ONCE ONE Administration Cocaine HCl 1 ml 04/14/25 17:53 04/14/25 17:58 Cocaine 4% Topical Soln 4ml Bottle TP 04/14/25 17:54 1 ml ONCE ONE Administration Epinephrine HCl 1 mg 04/14/25 17:53 04/14/25 17:58 Epinephrine 1 Mg/Ml Ampul TP 04/14/25 17:54 1 mg ONCE ONE Administration Lidocaine HCl 1 ml 04/14/25 17:53 04/14/25 17:58 Lidocaine 2% Urojet 10ml TP 04/14/25 17:54 1 ml ONCE ONE Administration Tetanus/Reduced Diphtheria/Acell Pertussis 0.5 ml 04/14/25 17:08 04/14/25 17:11 Tet/Diphth/Pert-Adult 0.5ml Syringe IM 04/14/25 17:09 0.5 ml .ONCE ONE Administration ORDERS Category Date Time Status CT head/brain wo con Stat Cat Scan 04/14/25 17:06 Completed Medical Decision Narrative: In summary, this patient is a 60-year-old male presenting to the Emergency Department for evaluation of head injury. Differential diagnoses considered include but are not limited to concussion, skull fracture, intracranial hemorrhage, scalp laceration. Ruling out the most morbid conditions drove assessment. On exam, the patient is sitting upright in no acute distress and is neurologically intact. He does not take blood thinners or aspirin. He has a scalp laceration with no step-off or deformity. Workup included CT head without contrast. I independently interpreted CT prior to the radiologist read and noted no skull fracture, no intracranial hemorrhage. Please see their read for final interpretation. Patient scalp was irrigated with Betadine and then repaired with 4 alexy. He tolerated this well with no complication. Given reassuring exam and workup I feel he is appropriate for discharge home with instructions for wound care and strict return precautions. He was discharged after all questions were answered Procedures Risk/Benefits of Procedure(s) Were Explained: Yes Laceration Laceration 1: Site: scalp Size (cm): 4 Description: flap Local Anesthetic: other anesthetic (Topical lidocaine) Pre-repair: wound explored, irrigated extensively and deep structures intact Skin layer closed with: other (Alexy x 4) Critical Care Critical Care Time Critical Care Time: No
== END 2025-04-14 19:20 | disposition home or self-care (01) ==
PROVIDERS: Emergency Provider Emergency Medicine; PCP Family Medicine
DX: S01.01XA Laceration without foreign body of scalp, initial encounter (principal); R51.9 Headache, unspecified; F17.210 Nicotine dependence, cigarettes, uncomplicated; W22.8XXA Striking against or struck by other objects, initial encounter; Z23 Encounter for immunization
CPT/HCPCS: 12002; 70450; 90471; 90715; 99284; J0169